=== PATIENT | male | born 1975 | race Caucasian/White ===

== ENCOUNTER 2024-10-19 10:59 | Inpatient (IN) | payer OTHER, SELFPAY ==
[2024-10-19] VITALS (30 sets, daily range): BP systolic 62–184; BP diastolic 41–126
--- NOTE | 2024-10-19 06:40 | EDRN ---
Pulse lost - CPR resumes - epi given
--- NOTE | 2024-10-19 06:48 | EDRN ---
STEMI alert called per Dr Taylor
--- NOTE | 2024-10-19 06:49 | EDRN ---
CPR continues - epi infusion increased per Dr Taylor, 1 amp epi administered.
--- NOTE | 2024-10-19 06:52 | EDRN ---
0652 - pulse returned. Fast rate 147. Dr Taylor going to speak with pt's .
[2024-10-19 06:55] LABS: Hematocrit 48.4 % (39.0-52.0); Hemoglobin 15.8 g/dL (13.0-18.0); Mean Corp Hgb Conc. 32.6 g/dL (33.0-37.0); Mean Corpuscular Hgb 30.3 pg (27.0-31.0); Mean Corpuscular Volume 92.7 fL (80.0-94.0); Platelet Count 147 10^3/uL (130-400); Red Blood Cell Count 5.22 10^6/uL (4.70-6.10); Red Cell Dist. Width 12.9 % (11.5-14.5); White Blood Cell Count 13.2 10^3/uL (4.8-10.8)
--- NOTE | 2024-10-19 06:56 | EDRN ---
family to bedside - waiting for cardiology
[2024-10-19 06:57] LABS: INR 1.09; PT 14.4 Sec (11.4-14.6)
[2024-10-19 06:58] LABS: APTT 37.2 Sec (23.4-35.0)
--- NOTE | 2024-10-19 06:59 | EDRN ---
Second amp sodium bicarb given per Dr Taylor
[2024-10-19] MEDS: HEPARIN 5000 UNITS IV (07:02)
[2024-10-19] MEDS: ASPIRIN 300 MG RECTAL (07:02)
--- NOTE | 2024-10-19 07:07 | EDRN ---
ETT placement confirmed by Dr Taylor on CXR
[2024-10-19 07:08] LABS: Glucose - Point of Care 547 mg/dl (70-99)
[2024-10-19 07:08] LABS: % Basophils 0.7 % (0-2); % Eosinophils 0.8 % (0-6); % Immature Granulocytes 7.8 % (0-0.5); % Lymphocytes 65.3 % (20.5-51.1); % Monocytes 4.5 % (1.7-9.3); % Neutrophils 20.9 % (42.2-75.2); Absolute Basophils 0.1 10^3/uL (0-0.2); Absolute Eosinophils 0.1 10^3/uL (0-0.7); Absolute Lymphocytes 8.7 10^3/uL (1.2-3.4); Absolute Monocytes 0.6 10^3/uL (0.1-0.6); Absolute Neutrophils 2.8 10^3/uL (1.4-6.5); Blood Urea Nitrogen 12 mg/dl (9-20); Calcium 8.2 mg/dl (8.4-10.2); Carbon Dioxide 18 mmol/L (22-30); Chloride 100 mmol/L (98-107); Glucose 604 mg/dl (70-99); Nucleated Red Blood Cells % 0.5 % (-); Potassium 3.1 mmol/L (3.5-5.1); Sodium 139 mmol/L (135-145); eGFR > 60.00
--- NOTE | 2024-10-19 07:09 | EDRN ---
Asked lab to run results stat and called pharmacy for sodium bicarb drip
[2024-10-19 07:13] LABS: Venous Blood Gas B.E. -12.8 mmol/L (-4 to +4); Venous Blood Gas HCO3 21.4 mmol/L (22-27); Venous Blood Gas O2 Sat % 78.4 %; Venous Blood Gas pO2 57 mmHg (30-50)
[2024-10-19 07:15] LABS: Venous Blood Gas pCO2 93 mmHg (35-48); Venous Blood Gas pH 6.97 (7.32-7.43)
--- NOTE | 2024-10-19 07:16 | EDRN ---
Report called to [place] in laboratory equipment cleaner, CT ready for pt
--- NOTE | 2024-10-19 07:18 | ED.GENMED ---
History of Present Illness
General
Chief Complaint: CODE
Source: family and ambulance crew
Exam Limitations: clinical condition
Time Seen by Provider: 10/19/24 07:17
History of Present Illness
History of Present Illness:
49-year-old male who presents in cardiac arrest. EMS reports that the patient reported chest pain last night to his but did not want to come the hospital as he thought it was gas. Seem to get better and went to bed. His then noticed
this morning that he had abnormal respirations and urinated on himself. She checked his pulse and started CPR and called 911. EMS gave 8 rounds of epinephrine and shocked him for V-fib 8 times. He was intubated in the field with a interosseous
line in the right tibia. Patient arrives on the Sean device receiving CPR
later arrives and admits that he would like to treat himself 'holistically' and has not taken medications for diabetes, hypertension or hyperlipidemia. She confirms that he complained of chest pain last night. He is not a smoker
Past History
Past History
ED Past Medical History: HTN and NIDDM
Phy Exam
Physical Exam
Physical Exam:
CONSTITUTIONAL patient arrives unresponsive
HEAD atraumatic, normocephalic.
EYES eyelids normal to inspection, pupils are about 5 mm and unreactive, Conjunctiva normal, Sclera normal.
NECK Trachea midline, no jugular venous distention.
RESP intubated, artificial respirations
BACK No obvious deformities
UPPER EXTREMITY Gross Range of motion normal, gross motor strength normal
LOWER EXTREMITY Gross range of motion normal, Gross motor strength normal
NEURO GCS 3 T
SKIN Skin warm, dry, and normal in color.
Course
Orders/Labs/Results
Orders:
Orders
10/19/24 06:35
EKG [Electrocardiogram (*1)] Stat
Reason for Study: Other
Other Reason for Exam: ROSC
EKG- Treatment ONCE
10/19/24 06:37
Chest X-ray Portable [CR Chest Portable - 1 View] Stat
Comment:
Reason For Exam: intubated ROSC
Reason Study Needs to be Portable: Unable to Transport
10/19/24 06:39
Basic Metabolic Panel Urgent
Complete Blood Count/With Diff Urgent
PTT Urgent
Prothrombin Time Urgent
Troponin I Urgent
10/19/24 06:54
EKG [Electrocardiogram (*1)] Stat
Reason for Study: Other
Other Reason for Exam: rhythm change
EKG- Treatment ONCE
10/19/24 06:58
Venous Blood Gas Stat
%Oxygen/Room Air: 100
10/19/24 07:00
Aspirin 300 mg RECTAL NOW STA
10/19/24 07:01
Aspirin 300 mg .ROUTE .STK-MED ONE
Heparin 5,000 units .ROUTE .STK-MED ONE
Heparin 5,000 units IV NOW STA
10/19/24 07:07
CT Head W/o Iv Contrast Stat
Comment:
Reason For Exam: code with ROSC
10/19/24 07:14
Comprehensive Metabolic Panel Urgent
10/19/24 07:19
Fentanyl Citrate/Pf [Sublimaze] 100 mcg .ROUTE .STK-MED ONE
Heparin 10,000 units .ROUTE .STK-MED ONE
Heparin 1000 Units/500 ml [Heparin] 1,000 units in 500 ml .ROUTE .STK-MED
Midazolam HCl [Versed] 2 mg .ROUTE .STK-MED ONE
Verapamil Injectable [Isoptin/Verapamil Injection] 5 mg .ROUTE .STK-MED ONE
10/19/24 07:20
Heparin Sodium,Porcine/Ns/Pf [Heparin 2000 Units/1000 ml] 2,000 unit in 1,000 ml .ROUTE .STK-MED
Nitroglycerin [Tridil] 1,500 mcg .ROUTE .STK-MED ONE
10/19/24 07:21
Amiodarone [Cordarone] 900 mg DEXTROSE 5% PVC-free BAG [D5W PVC-free BAG] 500 ml IV NOW
Initial Dose in mg/min:: 1
Duration of initial dose (hours):: 6
Subsequent dose in mg/min:: 0.5
Duration of subsequent dose (hours):: 18
Maximum dose in mg/min:: 1
Hold and notify provider if:: Heart rate < 60 BPM or SBP < 90 mmHg or MAP < 60 mmHg
EPINEPHrine 4 mg/250 mL NSS [Adrenalin] 4 mg in 250 ml IV NOW
Initial dose in mcg/min, then titrate:: 2
Titrate to keep:: MAP > 65 mmHg
Titrate by mcg/min:: 0.5 - 1 mcg/minute
Frequency of titrations (minutes):: 5
Maximum dose in mcg/min:: 10
Begin to taper infusion when:: Remained at goal for 4hrs
Taper by mcg/min:: 0.5 - 1 mcg/minute
Frequency of taper (minutes) if patient maintains goal:: 30
Taper to off?: Yes
If infusion off & no longer maintaining goal:: Contact Provider
Insulin Human Regular [Novolin R] 10 units IV NOW STA
10/19/24 07:45
Lidocaine HCl/Pf [Xylocaine-Mpf 1% Vial] 100 mg .ROUTE .STK-MED ONE
10/19/24 08:15
KCl 40 Meq/100 ml [KCl] 40 meq in 100 ml .ROUTE .STK-MED
10/19/24 08:39
Heparin 10,000 units .ROUTE .STK-MED ONE
10/19/24 09:09
ABG [Arterial Blood Gas] Stat
%Oxygen/Room Air: [id number] peep
Comment: abg post intubation
10/19/24 09:11
BMP [Basic Metabolic Panel] Urgent
10/19/24 09:21
Heparin 1000 Units/500 ml [Heparin] 1,000 units in 500 ml .ROUTE .STK-MED
10/19/24 09:31
Lactate Level [Lactic Acid] Urgent
10/19/24 09:38
Nitroglycerin [Tridil] 1,500 mcg .ROUTE .STK-MED ONE
10/19/24 09:44
Heparin 85658 Units/250 ml 25,000 units in 250 ml .ROUTE .STK-MED
10/19/24 09:47
EPTIFIBATIDE 75 mg/100 mL [Integrilin] 75,000 mcg in 100 ml .ROUTE .STK-MED
Eptifibatide [Integrilin] 10 ml .ROUTE .STK-MED
10/19/24 09:52
Eptifibatide [Integrilin] 10 ml .ROUTE .STK-MED
10/19/24 09:53
Midazolam HCl [Versed] 2 mg .ROUTE .STK-MED ONE
10/19/24 10:05
Furosemide [Lasix] 40 mg .ROUTE .STK-MED ONE
Ticagrelor [Brilinta] 180 mg .ROUTE .STK-MED ONE
10/19/24 10:35
Admit/Transfer Patient As Directed
Co-Sign Provider:
Level of Care: Inpatient admission
Assign to:: ICU
Physician / Group: Carolyn/hospitalist
Diagnosis: STEMI/cardiac arrest
Reason for Hospitalization: STEMI/cardiac arrest
Expected length of stay greater than two midnights?: Yes
ELOS- Estimated Length of Stay in days: 7
I certify the patient meets the requirements for IP care: Yes
Code Status As Directed
Resuscitation Status: Full Code
PRN Pain Medication Management As Directed
May give lesser potent ordered pain med per pt: Yes
preference::
Protocol:: Medication orders for pain may be administered in a
manner that supports deferring to patient preference
when the pt is:
- Requesting an ordered lesser potent pain medication.
Least to most potent pain medications are defined
as: acetaminophen < NSAID < tramadol < opioids
(morphine, oxycodone, hydromorphone).
- Requesting a lesser dose of the same medication IF
ORDERED.
- Requesting a less intrusive route of administration
if both routes are prescribed by the provider (PO <
IV).
10/19/24 10:48
Bisacodyl [Dulcolax] 10 mg RECTAL [id number] PRN
Docusate W/Senna [Senokot-S] 1 tablet PO BIDPRN PRN
Polyethylene Glycol Powder [Miralax] 17 grams PO DAILYPRN PRN
10/19/24 10:48
CARDIOLOGY CONSULT Routine
Consulting Provider: Erin Chou
Was physician already notified: Yes
Registered Nurse Surgical Services Consult Routine
Consulting Provider: Seun Ch
Was physician already notified: Yes
Activity As Directed
Activity Level: As Tolerated
Vital Signs As Directed
Frequency: Per unit guidelines
DX Deep Vein Thrombosis Video Routine
10/19/24 10:57
NEUROLOGY CONSULT Routine
Consulting Provider: Devyn Kiser
Was physician already notified: Yes
10/19/24 10:58
Admit Patient As Directed
Co-Sign Provider:
Level of Care: Inpatient admission
Assign to:: CVICU
Physician / Group: Carolyn/hospitalist
Diagnosis: cardiac arrest
Reason for Hospitalization: cardiac arrest
Expected length of stay greater than two midnights?: Yes
ELOS- Estimated Length of Stay in days: 7
I certify the patient meets the requirements for IP care: Yes
PRN Pain Medication Management As Directed
May give lesser potent ordered pain med per pt: Yes
preference::
Protocol:: Medication orders for pain may be administered in a
manner that supports deferring to patient preference
when the pt is:
- Requesting an ordered lesser potent pain medication.
Least to most potent pain medications are defined
as: acetaminophen < NSAID < tramadol < opioids
(morphine, oxycodone, hydromorphone).
- Requesting a lesser dose of the same medication IF
ORDERED.
- Requesting a less intrusive route of administration
if both routes are prescribed by the provider (PO <
IV).
10/19/24 11:00
Pantoprazole [Protonix IV] 40 mg IV DAILY
10/19/24 20:00
Heparin 5,000 units SC Q12
10/20/24 06:00
Complete Blood Count/With Diff IN AM
Comprehensive Metabolic Panel IN AM
Lactic Acid IN AM
Magnesium IN AM
10/21/24 06:00
Complete Blood Count/With Diff IN AM
Comprehensive Metabolic Panel IN AM
Lactic Acid IN AM
Magnesium IN AM
10/22/24 06:00
Complete Blood Count/With Diff IN AM
Comprehensive Metabolic Panel IN AM
Lactic Acid IN AM
Magnesium IN AM
10/23/24 06:00
Complete Blood Count/With Diff IN AM
Comprehensive Metabolic Panel IN AM
Lactic Acid IN AM
Magnesium IN AM
10/24/24 06:00
Complete Blood Count/With Diff IN AM
Comprehensive Metabolic Panel IN AM
Lactic Acid IN AM
Magnesium IN AM
10/25/24 06:00
Complete Blood Count/With Diff IN AM
Comprehensive Metabolic Panel IN AM
Magnesium IN AM
Abnormal Lab Results
10/19/24 10/19/24 10/19/24
06:39 06:58 07:02
WBC 13.2 H 10^3/uL
(4.8-10.8)
MCHC 32.6 L g/dL
(33.0-37.0)
MPV 11.0 H fL
(7.4-10.4)
Abs Immat Gran (auto) 1.0 H 10^3/uL
(0-0.05)
Absolute Lymphs (auto) 8.7 H 10^3/uL
(1.2-3.4)
Immature Gran % 7.8 H %
(0-0.5)
Neutrophils % 20.9 L %
(42.2-75.2)
Lymphocytes % 65.3 H %
(20.5-51.1)
APTT 37.2 H Sec
(23.4-35.0)
pH
pCO2
pO2
HCO3
ABG O2 Sat (Measured)
VBG pH 6.97 L*
(7.32-7.43)
VBG pCO2 93 H* mmHg
(35-48)
VBG pO2 57 H mmHg
(30-50)
VBG HCO3 21.4 L mmol/L
(22-27)
Potassium 3.1 L mmol/L
(3.5-5.1)
Carbon Dioxide 18 L mmol/L
(22-30)
Creatinine
Glucose 604 H* mg/dl
(70-99)
Lactic Acid
Calcium 8.2 L mg/dl
(8.4-10.2)
AST
ALT
Alkaline Phosphatase
Troponin I 1.520 H* ng/ml
Total Protein
POC Glucose 547 H* mg/dl
(70-99)
POC ACT Low Range
10/19/24 10/19/24 10/19/24
07:14 08:13 08:14
WBC
MCHC
MPV
Abs Immat Gran (auto)
Absolute Lymphs (auto)
Immature Gran %
Neutrophils %
Lymphocytes %
APTT
pH
pCO2
pO2
HCO3
ABG O2 Sat (Measured)
VBG pH
VBG pCO2
VBG pO2
VBG HCO3
Potassium
Carbon Dioxide 19 L mmol/L
(22-30)
Creatinine
Glucose 579 H* mg/dl
(70-99)
Lactic Acid
Calcium 8.3 L mg/dl
(8.4-10.2)
AST 771 H* U/L
(17-59)
ALT 684 H* U/L
(0-50)
Alkaline Phosphatase 190 H U/L
(38-126)
Troponin I
Total Protein 5.9 L g/dl
(6.3-8.2)
POC Glucose > 600 H* mg/dl
(70-99)
POC ACT Low Range 165 H Seconds
(116-155)
10/19/24 10/19/24 10/19/24
08:19 08:34 08:52
WBC
MCHC
MPV
Abs Immat Gran (auto)
Absolute Lymphs (auto)
Immature Gran %
Neutrophils %
Lymphocytes %
APTT
pH
pCO2
pO2
HCO3
ABG O2 Sat (Measured)
VBG pH
VBG pCO2
VBG pO2
VBG HCO3
Potassium
Carbon Dioxide
Creatinine
Glucose
Lactic Acid
Calcium
AST
ALT
Alkaline Phosphatase
Troponin I
Total Protein
POC Glucose
POC ACT Low Range 211 H Seconds 250 H Seconds 279 H Seconds
(116-155) (116-155) (116-155)
10/19/24 10/19/24 10/19/24
08:59 09:09 09:10
WBC
MCHC
MPV
Abs Immat Gran (auto)
Absolute Lymphs (auto)
Immature Gran %
Neutrophils %
Lymphocytes %
APTT
pH 7.21 L
(7.35-7.45)
pCO2 49 H mmHg
(35-48)
pO2 259 H mmHg
(83-108)
HCO3 19.6 L mmol/L
(21-28)
ABG O2 Sat (Measured) 99.8 H %
(94-98)
VBG pH
VBG pCO2
VBG pO2
VBG HCO3
Potassium
Carbon Dioxide
Creatinine
Glucose
Lactic Acid
Calcium
AST
ALT
Alkaline Phosphatase
Troponin I
Total Protein
POC Glucose > 600 H* mg/dl
(70-99)
POC ACT Low Range 277 H Seconds
(116-155)
10/19/24 10/19/24 10/19/24
09:11 09:29 09:31
WBC
MCHC
MPV
Abs Immat Gran (auto)
Absolute Lymphs (auto)
Immature Gran %
Neutrophils %
Lymphocytes %
APTT
pH
pCO2
pO2
HCO3
ABG O2 Sat (Measured)
VBG pH
VBG pCO2
VBG pO2
VBG HCO3
Potassium
Carbon Dioxide
Creatinine 1.4 H mg/dL
(0.7-1.3)
Glucose 634 H* mg/dl
(70-99)
Lactic Acid 8.3 H* mmol/L
(0.7-2.0)
Calcium 7.1 L mg/dl
(8.4-10.2)
AST
ALT
Alkaline Phosphatase
Troponin I
Total Protein
POC Glucose
POC ACT Low Range 279 H Seconds
(116-155)
10/19/24 10/19/24 10/19/24
09:41 09:59 10:47
WBC
MCHC
MPV
Abs Immat Gran (auto)
Absolute Lymphs (auto)
Immature Gran %
Neutrophils %
Lymphocytes %
APTT
pH
pCO2
pO2
HCO3
ABG O2 Sat (Measured)
VBG pH
VBG pCO2
VBG pO2
VBG HCO3
Potassium
Carbon Dioxide
Creatinine
Glucose
Lactic Acid
Calcium
AST
ALT
Alkaline Phosphatase
Troponin I
Total Protein
POC Glucose > 600 H* mg/dl
(70-99)
POC ACT Low Range 326 H Seconds 282 H Seconds
(116-155) (116-155)
10/19/24 06:39
10/19/24 09:11
Vital Signs
Initial and Last Documented VS:
Initial Vital Signs
Pulse BP
147 178/126
10/19/24 06:36 10/19/24 06:36
Last Documented Vital Signs
Temp Pulse Resp BP Pulse Ox
100.3 F 133 28 108/81 100
10/19/24 15:03 10/19/24 15:00 10/19/24 15:00 10/19/24 14:00 10/19/24 15:00
MDM/Problems Addressed
MDM/Problems Addressed:
Cardiopulmonary arrest, STEMI, acute severe hyperglycemia, V-fib arrest, metabolic and respiratory acidosis
*Radiology
Radiology exam reviewed: preliminary read by ED provider (ET tube intact)
*Pulse Oximetry
Patient hypoxic: no
*EKG
Interpreted by ED Provider?: Yes
Interpretation: abnormal
Ischemia: ST elevation
*Urologic Nurse Interpretation
Rate: tachycardiac
Interpretation: abnormal
Rhythm: sinus
*Critical Care Note
Total Time (30-74mins, 75-104mins- exclusive of procedures): 60 minutes
Data Reviewed
Source: family and ambulance crew
Prescriptions/Medications Considered But Not Given:
Consider antibiotics with taken emergently to cardiac catheterization lab.
Patient Management
Discussion with other providers: Hospitalist, Dean (Case discussed with interventional cardiology) and Other (Case discussed with public health epidemiologist)
Escalation/DeEscalation of care consider admission/obs:
49-year-old male who presents in cardiac arrest. Fortune a downtime of probably close to 50 minutes. Not responsive to verbal or painful stimuli. ST elevation noted on EKG. On initial arrival regained a pulse. He then lost a pulse shortly after
that x 2 separate events but responded well to 1 dose of push dose epi. Then maintained on IV epinephrine drip as well as amiodarone drip. May be a candidate for cooling. Family brought in during resuscitation and aware of his poor prognosis.
ED Attending Note
-
Portions of this chart may have been created with voice recognition software.� Occasional wrong word or��sound alike� substitutions may have occurred due to the inherent limitations of voice recognition software.
Discharge Plan
Departure
Patient Disposition: Admit
Date of Disposition: 10/19/24
Time of Disposition: 07:18
Admit to: ICU
Presentation/result/management discussed w/ accepting MD/DO: Hospitalist
Discharge Problem:
Cardiac arrest, ST elevation (STEMI) myocardial infarction, VDRF
Interventions
Interventions:
*Risk Screen - Suicide Last Done: 10/19/24 06:44
*General Assessment Last Done: 10/19/24 06:44
*Neglect/Abuse Screening Last Done: 10/19/24 06:44
*ED COVID-19 Vaccine History Last Done: 10/19/24 06:44
*Nursing Disposition Last Done: 10/19/24 07:23
Discharge Date and Time
Discharge Date/Time: 10/19/24 07:26
--- NOTE | 2024-10-19 07:21 | EDRN ---
#16 OG inserted by ABIMBOLA Ricardo
--- NOTE | 2024-10-19 07:53 | HPS.HSE ---
Addendum entered and electronically signed by Nathaly Leon MD 10/19/24 14:13:
d/w supervisor farm equipment maintenance Dr Chou who wishes code status to be changed back to full code for now.
Cattle Driver Dr Chou spoke with and explained.
Code status changed back to full code.
Addendum entered and electronically signed by Nathaly Leon MD 10/19/24 12:28:
cell phone number [phone]
Original Note:
Family Physician
-
Family Physician: NOT KNOW UNKNOWN - PT DOES
Chief Complaint
-
cardiac arrest
History of Present Illness
49 yo M, PMH HTN, HLD, DM, not on medication due to non-compliance, who p/w cardiac arrest s/p ROSC. He apparently was complaining of chest pain the night before but went to bed at 11 pm. He was found unresponsive in the morning by his at 5:30
am. According to his , she called EMS immediately.
Per ED, he was noted to be in in [place] and VF by airplane technician.
Upon arrival to the ER, he went straight to the Plant Culture Manager for suspected STEMI.
Medical History
Past Medical History
Past Medical History: Reports HTN, Hypercholesterolemia and NIDDM
Past Surgical History: Reports Appendectomy
Social History
Tobacco: Non-smoker
Alcohol: None
Personal:
Living: With Family
Family History
Family History: Not pertinent
Allergies / Home Medications
Allergies reflects when Allergies were last updated in [employer].
Home Medications with original date entered in [employer]
Allergy/Medication List:
Allergies
Allergy/AdvReac Type Severity Reaction Status Date / Time
No Known Allergies Allergy Unverified 10/19/24 06:44
Home Medications
No Meds [No Current Medications] 10/19/24
Review of Systems
-
Unable to obtain full review of systems at this time due to: Acuity
Physical Exam
Vital Signs
Vital Signs
Pulse Resp BP Pulse Ox
122 10 167/107 100
10/19/24 07:15 10/19/24 06:38 10/19/24 07:15 10/19/24 07:15
Physical Exam
General: Well Developed, Well Nourished, Respiratory Distress and Obese
HEENT: NormoCephalic, Moist mucous membranes, Atraumatic and Oxygen (intubated)
Respiratory: Clear and Non Labored Respirations; No Accessory Resp Muscle Use
Cardiac: S1/S2 and Regular Rhythm; No Murmur or Rub
GI: Soft, Non Tender, Non Distended and Normal Bowel Sounds; No Organomegaly
Rectal: Deferred by Provider
Musculoskeletal: No Clubbing, No Cyanosis and No Edema
Skin: No Rash
Neuro: No Awake
Laboratory Results
-
10/19/24 06:39
Laboratory Results
PT 14.4 Sec (11.4-14.6) 10/19/24 06:39
INR 1.09 10/19/24 06:39
APTT 37.2 Sec (23.4-35.0) H 10/19/24 06:39
Total Bilirubin Cancelled 10/19/24 06:39
AST Cancelled 10/19/24 06:39
ALT Cancelled 10/19/24 06:39
Alkaline Phosphatase Cancelled 10/19/24 06:39
Troponin I 1.520 ng/ml H* 10/19/24 06:39
Data Reviewed
-
CT Scan: Report Reviewed by me and Discussed with Family
Lab Data: Labs Reviewed by me and Discussed with Family
Impression/Plan
-
49 yo M, PMH HTN, HLD, DM, not on medication due to non-compliance, who p/w cardiac arrest s/p ROSC. He apparently was complaining of chest pain the night before but went to bed at 11 pm. He was found unresponsive in the morning by his at 5:30
am. According to his , she called EMS immediately.
Per ED, he was noted to be in in [place] and VF by airplane technician.
Upon arrival to the ER, he went straight to the Plant Culture Manager for suspected STEMI.
A/P:
# Cardiac arrest/STEMI
# Ventricular arrhythmia with VT and VF
# Cardiogenic shock
per card, cath showed 100% proximal RCA occlusion, s/p 3 stent placement. Follow-up formal cath report
Continue aspirin/Brilinta per card.
Cont Toprol and amiodarone per card
IV Lasix per card
Levophed started by Elementary School Teacher'S Aide, cont for BP support in setting of shock
Check follow-up echo
Cardiology on board
Elementary School Teacher'S Aide consult
# Acute hypoxic respiratory failure
Intubated for airway protection
Vent and sedation per Elementary School Teacher'S Aide
# Likely anoxic brain injury
CT head noted mild/early diffuse cerebral edema.
Neuro consulted, plan for EEG in the morning
# Metabolic acidosis
# Lactic acidosis
Suspect related to cardiac arrest
Follow lactic acid level
# End organ damage and likely leading to failure
# Developing RUBÉN
# Transaminitis suspect hypoxic liver injury
Trend SCr and LFT
consider renal and GI CS
# SIRS suspect 2/2 cardiac arrest
will check blood cultures x2 and cover with cefepime for now
# DM
Insulin drip
Accu-Chek
DVT ppx: HSQ
Code: changed to DNR DNI after extensive discussion with family
d/w Neuro, Kelechi, Elementary School Teacher'S Aide
d/w RN
Extensive discussion with and daughters in person. Explained to them the current critical situation. Also informed that the patient may never fully recover neurologically. and daughters verbalized understanding and are in agreement to
transition pt's code status to DNR DNI.
CC time 50 min
--- NOTE | 2024-10-19 08:09 | EDRN ---
Pt transported to field laborer after completing the head ct. Gtube was removed due to pt biting the tube and an NG tube was reinserted with positive stomach content showing. Hand off report given to nurses in the field laborer as well as the insulin drip
that was not started yet. Yellow copy of the ACS was returned to ED.
[2024-10-19 08:17] LABS: ACT-LR - POC 165 Seconds (116-155)
[2024-10-19 08:24] LABS: ACT-LR - POC 211 Seconds (116-155)
[2024-10-19 08:31] LABS: ALT (SGPT) 684 U/L (0-50); AST (SGOT) 771 U/L (17-59); Albumin 3.5 g/dl (3.5-5.0); Alkaline Phosphatase 190 U/L (38-126); Blood Urea Nitrogen 13 mg/dl (9-20); Calcium 8.3 mg/dl (8.4-10.2); Carbon Dioxide 19 mmol/L (22-30); Chloride 101 mmol/L (98-107); Glucose 579 mg/dl (70-99); Potassium 3.9 mmol/L (3.5-5.1); Sodium 139 mmol/L (135-145); Total Bilirubin 0.9 mg/dl (0.2-1.3); Total Protein 5.9 g/dl (6.3-8.2); eGFR > 60.00
[2024-10-19 08:40] LABS: ACT-LR - POC 250 Seconds (116-155)
[2024-10-19 08:58] LABS: ACT-LR - POC 279 Seconds (116-155)
[2024-10-19 09:11] LABS: Glucose - Point of Care > 600 mg/dl (70-99)
[2024-10-19 09:11] LABS: Glucose - Point of Care > 600 mg/dl (70-99)
[2024-10-19 09:15] LABS: B.E. -8.5 mmol/L; HCO3 19.6 mmol/L (21-28); O2 Saturation % 99.8 % (94-98); PCO2 49 mmHg (35-48); PO2 259 mmHg (83-108); pH 7.21 (7.35-7.45)
[2024-10-19 09:19] LABS: ACT-LR - POC 277 Seconds (116-155)
[2024-10-19 09:36] LABS: ACT-LR - POC 279 Seconds (116-155)
[2024-10-19 09:47] LABS: ACT-LR - POC 326 Seconds (116-155)
[2024-10-19 10:06] LABS: ACT-LR - POC 282 Seconds (116-155)
[2024-10-19 10:07] LABS: Lactic Acid 8.3 mmol/L (0.7-2.0)
[2024-10-19 10:26] LABS: Blood Urea Nitrogen 17 mg/dl (9-20); Calcium 7.1 mg/dl (8.4-10.2); Carbon Dioxide 23 mmol/L (22-30); Chloride 103 mmol/L (98-107); Glucose 634 mg/dl (70-99); Potassium 4.8 mmol/L (3.5-5.1); Sodium 138 mmol/L (135-145); eGFR > 60.00
--- NOTE | 2024-10-19 10:36 | ITS.CL.CATH ---
Section Hand Helper - Catheterization
Cardiac Catheterization
Procedure Report:
LEFT AND RIGHT HEART CATHETERIZATION
Date of Procedure: October 19, 2024
Referring: [place] emergency department
PROCEDURES:
1. Left heart catheterization, coronary angiogram.
2. Ultrasound-guided access.
3. Right heart catheterization.
4. Mechanical aspiration thrombectomy with penumbra CATRX
5. Successful percutaneous coronary artery intervention of 100% thrombotic proximal RCA occlusion (ZEN 0 flow) post thrombectomy with 3 overlapping 2.75 x 26 mm, and 3.0 x 8 mm Medtronic Eudora drug-eluting stents and a 3.0 x 15 mm Xience jerri point
drug-eluting stent, postdilated using IVUS guidance with a 3.0 x 20 mm NC balloon at 18 ayan distally and a 3.25 x 15 mm NC balloon at 20 ayan proximally with an excellent angiographic and IVUS based result.
6. Intravascular ultrasound (IVUS)
7. Placement of a radial arterial line.
INDICATION: Sunil is a 49-year-old morbidly obese gentleman with past medical history of hypertension, hyperlipidemia, type 2 diabetes mellitus, obstructive sleep apnea, not on CPAP, not on any medications given patient does not believe in
medications who is brought in by EMS after being found to have VT VF cardiac arrest. Per who obtains most of the history given patient is intubated, patient reported short-lived episode of chest discomfort last week however they did not make
anything of it given it was self-limiting. He also had another episode of substernal chest discomfort last night which lasted about 5 to 10 minutes. asked patient if they should go out and get some aspirin or go to the emergency room for an
evaluation however patient opted to not take any medications or present to the ED but instead drank water with some cell and it which resolved his symptoms supposedly and went to sleep. Around 5:20 AM noted that patient's snoring was lower
than his baseline and he was gargling which was different than ever before. She turned the lights on and noted that patient had been incontinent of urine. In the setting she called EMS and she was directed to start CPR at home. Per ED, EMS
reached their 7 minutes after they got the phone call and patient was found to be in VF needing ACLS, recurrent shocks, total of 8. In the emergency room he continued to have bradycardic events needing ongoing epinephrine and CPR with no further
shocks. With transient ROSC initially his EKG showed ST elevations in the inferior leads however patient went back into VF needing another round of ACLS before achieving ROSC. In the emergency room he was on 20 mcg of epinephrine drip, intubated
sedated, had received full dose aspirin rectally, not on any sedation. He was also started on amnio drip. Patient was seen and evaluated in the emergency room with extensive discussion with the family. Initial head CT on the way to the heart
catheterization lab showed no acute bleed however did show signs of possible early anoxic brain injury. Extensive discussion was had with the patient's and daughter given they had mentioned that patient 'does not believe in medicines and may
not want stents', and we discussed considering options of medical therapy only with increased risk for MACE events and mortality versus moving forward with invasive heart catheterization and specifically noted that patient 'would not have
wanted to ' and therefore they would like us to do everything and patient's assured us that patient would take necessary medications if he survives this major event. Given significant downtime, we also discussed at the time of consent that
overall prognosis is very guarded likely from his neurologic status regarding of invasive vs non-invasive approach.
ACCESS:
1. Right radial artery, 6 [place] sheath, under ultrasound guidance.
2. Right common femoral vein, 6 [place] sheath under ultrasound guidance using a micropuncture kit.
Ultrasound was utilized for vascular access. The radial artery and right common femoral vein was visualized under ultrasound, and the vessel was patent and artery was pulsatile. Images for both were stored permanently in the patient's medical
record. Under direct ultrasound guidance, a 6 [place] sheath was inserted into the artery and vein using a micropuncture kit through a modified Seldinger technique.
HEMODYNAMICS : (mmHg)
RA (m) : 23
RV (s/d,m) : 48/22, 27
PA (s/d, m) : 47/35, 40
PCWP (m) : 29
PA saturation: 66.1% on 60% FiO2 via ventilator
AO saturation: 95.5% on 60% FiO2 via ventilator
RA saturation: 63.4% on 60% FiO2 via ventilator
Cardiac Output : 4.8 L/min
Cardiac Index : 2.28 L/min/m-2
Systemic vascular resistance: 1102 dsc^(-5)
Pulmonary vascular resistance: 2.88 nair unit
AO (s/d) : 119/80
LV (s/d) : 118/60
LVEDP : 23
CORONARY FINDINGS
DOMINANCE: Right
LEFT MAIN: The left main artery is a medium to large caliber vessel which gives rise to the left anterior descending artery and the left circumflex artery. There is minimal luminal irregularities.
LEFT ANTERIOR DESCENDING: The left anterior descending artery is a medium caliber vessel which gives rise to multiple small diagonal branches as it courses to the anterior interventricular groove towards the apex. There is mild to moderate diffuse
atherosclerotic plaque in the mid LAD.
CIRCUMFLEX: The left circumflex artery is a medium caliber vessel which gives rise to 2 obtuse marginal branches. There is a chronic total occlusion of mid left circumflex with left to left collaterals filling a likely left posterolateral branch
and the terminal left circumflex. There is a very small caliber OM1, cannot definitively rule out a INFORMATION COORDINATOR with left to left collaterals there. OM 2 is a medium caliber vessel with minimal luminal irregularities.
RIGHT CORONARY ARTERY: The right coronary artery is a medium caliber, dominant vessel with 100% proximal thrombotic occlusion which is the culprit of presenting ST elevation LA.
CORONARY INTERVENTION: The right coronary artery was selectively engaged using a 6 [place] JR4 guide catheter. A 190 cm 0.014 run-through wire was advanced with some difficulty into the distal vessel. Additional heparin was given to maintain a
therapeutic ACT throughout the case. The lesion was initially predilated using a 2.5 x 15 mm semicompliant balloon at 14 ayan with good expansion however ZEN 0 flow persisted. Multiple inflations were performed with ZEN I flow noted down the
distal vessel which initially appeared to be diffusely diseased. Given significant thrombus burden we decided to perform mechanical aspiration thrombectomy with penumbra CAT Rx catheter and performed multiple passes. Post thrombectomy, we noted
ZEN II flow. The lesion was further predilated using a 2.75 x 20 mm semicompliant balloon at 14 ayan with good expansion. The lesion was then stented using a 2.75 x 26 mm Medtronic Semaj drug-eluting stent. At this point we performed IVUS using a
[employer] eye catheter and decided to postdilate the stent with a 3.0 x 20 mm NC balloon at 18 ayan distally and 20 ayan proximally. We noted some haziness at the proximal edge of the stent and decided to cover this with another stent given
concern for possible thrombus displacement. We overlapped a 3.0 x 8 mm Medtronic Eudora drug-eluting stent at the proximal edge and postdilated initially with a 3.0 x 20 mm NC balloon at 20 ayan proximally. At this point in the middle of the original
stent we noted some restenosis and haziness. We brought back our IVUS catheter with the stents appearing well apposed and well-expanded in this area with no obvious thrombus noted. We further postdilated this area using a 3.25 x 15 mm NC balloon
at 18 ayan and repeated the same NC balloon at the proximal edge at 20 ayan with good expansion. We brought back our IVUS catheter again given concern for ongoing haziness in this area. On intravascular ultrasound there was no obvious but possible
plaque protrusion/thrombus. We decided to take an orthogonal shot in an BEGUM view which showed a 80% restenosis in the middle of the initial stent placed. Given concern that there was possible plaque protrusion through the stent struts, we decided
to cover this with a second 3.0 x 15 mm Xience jerri point drug-eluting stent which was now postdilated with a 3.25 x 15 mm NC balloon at 20 ayan in the mid portion and proximally with an excellent angiographic and IVUS based result. There is no
evidence of proximal or distal stent edge dissections. 180 mg of Brilinta was given to the patient through the OG tube once we confirmed placement under fluoroscopy. No acute complications. Given persistent hypertension from the beginning of the
case, his epinephrine drip that he came up on from the emergency room was completely weaned off.
SEDATION: 136 minutes of procedural sedation was utilized. An independent front office medical assistant was present to assist with and help manage the patient's level of consciousness and physiologic status.
RADIATION SUMMARY: Fluoro Time (min): 18 Dose (mGy): 1254.6 DAP (Gy.cm2) : 101.2
Closure Device:
1. Vascular band over right radial artery with 11 cc of air.
2. Right common femoral vein was sutured in place for access purposes
CONCLUSIONS
1. Successful percutaneous coronary artery intervention of 100% thrombotic proximal RCA occlusion (ZEN 0 flow) post thrombectomy with 3 overlapping 2.75 x 26 mm, and 3.0 x 8 mm Medtronic Eudora drug-eluting stents and a 3.0 x 15 mm Xience jerri point
drug-eluting stent, postdilated using IVUS guidance with a 3.0 x 20 mm NC balloon at 18 ayan distally and a 3.25 x 15 mm NC balloon at 20 ayan proximally with an excellent angiographic and IVUS based result.
2. Significantly elevated right and left-sided filling pressures with normal cardiac output.
RECOMMENDATIONS
1. Uninterrupted dual antiplatelet therapy with daily baby aspirin and Brilinta 90 mg twice daily, high intensity statin and beta-luis alberto as tolerated.
2. Wean radial band per protocol. Arterial line sutured in place. Venous access catheter in the groin is also sutured in place.
3. Full echocardiogram to assess biventricular function and rule out any significant valvular abnormalities.
4. Aggressive management of cardiovascular risk factors.
5. Eventual referral for outpatient cardiac rehab if patient survives this event with a meaningful neurologic recovery.
Erin Cohu MD, [facility], [facility]
--- NOTE | 2024-10-19 11:00 | CON.INTV ---
Consultation
Consultation Request
Date/Time Consultation Requested: 10/19/2024 - 1047
Date/Time Consultation Performed: 10/19/2024 - 1049
Requesting Provider: Dr. Leon
Performing Provider: Dr. Freeman
Reason for Consultation: Cardiac Arrest
Medical History
-
Chief Complaint: Found unresponsive
History of Present Illness:
49-year-old male with a past medical history of hypertension, hypercholesterolemia and DM type II who presented with unresponsiveness. Per the , patient went to bed last night and prior to that he had chest discomfort. The asked if he
wanted to go to the ER then but he refused. He drank water with salt in it and then he felt better and then went to bed. This morning at 5:30 AM she found him unresponsive in bed. EMS called. Per the imaging assistant he was in VT and V-fib. Cardiology
consulted. Initial EKG showed ST depressions in the inferior leads with lateral ST depressions. He was found to have a 100% occluded proximal RCA and 3 stents were placed. Patient remains intubated, was transferred to CVICU and or rn
services consulted for additional management/recommendations.
When I saw the patient he was unresponsive, intubated on AC/CMV at 24/550/60%/5 with PIP 39 cm water, VTe 511 cc and breathing at 35 breaths/min. Of note, CT head obtained today shows diffuse cerebral edema. Per neurology, this is evident of
hypoxic�anoxic brain injury and chances of a meaningful recovery are low. Discussion held with the patient's , Faye, and 2 daughters, Marina and Elvira. Discussion of his CT head results were explained to them in layman's terms and they
would like him to be DNR/DNI but continue full medical management otherwise. All questions were answered and emotional support was provided.
PMHx: Hypertension, hypercholesterolemia, DM type II
PSHx: Appendectomy
Past Medical History
Past Medical History: Other (Above as per HPI)
Past Surgical History: Other (Above as per HPI)
Social History
Tobacco: Non-smoker
Alcohol: None
Drug: None
Personal:
Living: With Family
Family History
Family History: Unable to Obtain
Allergies / Home Medications
Allergies
Allergy/AdvReac Type Severity Reaction Status Date / Time
No Known Allergies Allergy Unverified 10/19/24 06:44
Home Medications
�Medication �Instructions �Recorded �Confirmed �Last Taken �Type
No Meds [No Current Medications] 10/19/24 10/19/24 Unknown History
Review of Systems
-
Unable to Obtain full review of systems at this time due to: Acuity and Patient Intubation
Vitals / Labs / Diagnostic Testing
Vital Signs
Temp Pulse Resp BP Pulse Ox
101.7 F H 140 28 184/116 100
10/19/24 11:26 10/19/24 12:15 10/19/24 12:15 10/19/24 07:45 10/19/24 12:15
Lab Data
10/19/24 06:39
10/19/24 12:03
Laboratory Results
10/19/24 10/19/24
06:39 09:09
PT 14.4
INR 1.09
APTT 37.2 H
pH 7.21 L
pCO2 49 H
pO2 259 H
HCO3 19.6 L
O2 Delivery Level
Diagnostic Testing:
Physical Exam
-
HEENT: Normocephalic, Anicteric and Other (ETT in place)
Cardiovascular: S1/S2, Peripheral Edema (+1 LE edema b/l) and Other (Tachycardic)
Respiratory: Wheeze (negative), Rales (Bilateral), Rhonchi (Bilateral), Accessory Resp Muscle Use (negative) and Other (Mechanical breath sounds heard bilaterally)
GI: Soft, Non Distended, Non Tender and Normal Bowel Sounds
Neurology: Tremors (Occasionally seen in the lower extremities bilaterally) and Other (Unresponsive; pupils are +3 bilaterally and minimally reactive; absent corneal reflexes and absent gag reflex; no withdrawal of any extremity to noxious stimuli)
Skin: Warm and Dry
General: Respiratory Distress (negative), Comfortable, Chills (negative) and Sweats (negative)
Assessment
-
Assessment: 49-year-old male with a past medical history of hypertension, hypercholesterolemia and DM type II who presented with unresponsiveness. Per the , patient went to bed last night and prior to that he had chest discomfort. The
asked if he wanted to go to the ER then but he refused. He drank water with salt in it and then he felt better and then went to bed. This morning at 5:30 AM she found him unresponsive in bed. EMS called. Per the imaging assistant he was in VT and V-fib.
Cardiology consulted. Initial EKG showed ST depressions in the inferior leads with lateral ST depressions. He was found to have a 100% occluded proximal RCA and 3 stents were placed. Patient remains intubated, was transferred to CVICU and
or rn services consulted for additional management/recommendations.
Chronic conditions QUALITY ASSISTANT: Hypertension, hypercholesterolemia, DM type II
Impression:
#Btb-eb-nekosdvy cardiac arrest with VF/VT due to coronary thrombosis
#Circulatory shock likely due to vasoplegia in the setting of metabolic + respiratory acidosis in the setting of RUBÉN + lactic acidosis
#Ventilator dependent respiratory failure
#Inferior wall STEMI s/p stenting x 3 to proximal RCA
#Acute decompensated heart failure due to STEMI as above
#Suspected aspiration pneumonia with CXR showing left perihilar consolidation
#Diffuse cerebral edema due to anoxic�hypoxic encephalopathy
#Leukocytosis
#Thrombocytopenia (mild)
#Acute respiratory and metabolic acidosis
#RUBÉN
#Lactic acidosis
#Hyperglycemia
#Shock liver
#Elevated troponins
Plan:
- Start targeted temperature management
- Given that he is now hypotensive after arriving to the CVICU, unable to bring temperature down to 32-34 �C and instead would keep at 35-36 �C and avoid fever at all costs
- Give Tylenol ATC although need to limit it to <2 g/day given his shock liver
- Try to limit sedation if possible in order to help prognosticate over the next 24-72 hours
- Neurology consulted --> given the patient has shaking movements concerning for seizures, defer starting antiepileptics to neurology
- EEG pending
- Patient ready has a right radial A-line; continue with central venous access via Cordis placed during Investor Relations Manager today
- Continue DAPT given stents x3 to proximal RCA lesion
- Would hold high intensity statin for now given his significant transaminitis
- He is also on amiodarone however this may need to be held in the setting of his transaminitis with shock liver
- Cardiology on board and recommendations appreciated
- Once patient arrived to the CVICU, he became very hypotensive with SBP dropping into the 30s and saturations dropping into the 70s
- FiO2 raised to 100% and PEEP raised to 10, and he was given a push dose of epinephrine, bicarb and started on Levophed --> this helped his BP tremendously
- Continue with vasopressors with goal MAP >65
- Use double concentrated pressors given he is volume overloaded as per [facility] with high filling pressures as per client resource specialist, Dr. Chou
- If pressor requirements persist then start vasopressin and stress dose steroids
- Trend lactate
- Replete electrolytes with K>4, Mg>2
- Continue mechanical ventilation
- No SAT/SBT given that we are starting to cool with targeted temperature management
- Aspiration precautions keeping HOB >30-45�
- Maintain SpO2 >94%
- Adjust ventilator as needed based on blood gases to optimize pH with goal >7.3 and <7.5
- prn nebulized bronchodilators - not currently bronchospastic
- Start antibiotics with Unasyn for suspected pneumonia
- Check blood cultures as well as sputum cultures
- Check urine antigens for Legionella + strep pneumonia
- Renally dose all medications/antibiotics
- Trend UOP and continue strict I/O
- Consider nephro consult
- Maintain euglycemia with goal BG 140-180 - currently on insulin gtt
- Trend H/H and transfuse if needed to keep Hb>8g/dL; keep plt>20k
- DVT ppx: HSQ
Goals of care discussion: After patient arrived to the CVICU, the patient's family with his and 2 daughters spoke to the hospitalist, Dr. Leon, the neurologist, Dr. Kiser and myself, Dr. Ch. Patient remains critically ill and his CT head
already shows signs of hypoxic�anoxic brain injury. His labs and imaging were explained in layman's terms and we even showed the imaging of his brain CT to the family. 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
this' including the stents or to remain intubated. Given that he is critically ill and has a high chance of further deterioration and possibly another cardiac arrest, family opted to make him DNR/DNI with otherwise continuation of full medical
management. All questions were answered and emotional support was provided.
Continue ICU level of care for this critically ill patient
Critical care statement: A total of 46 minutes of critical care time was provided for this patient today. This includes management of unstable vital signs, evaluation of the patient at bedside, reviewing the patient's pertinent medical records
including radiographs, microbiology, laboratory evaluations, and discussion with primary team, consultants, pharmacy, nutrition, physical therapy, case management, charge nurse, critical care nursing, and respiratory therapy.
Data:
CT Head 10/19/2024: No acute intracranial hemorrhage; findings suspicious for mild/early diffuse cerebral edema.
--- NOTE | 2024-10-19 11:00 | PTCARENOTE ---
Received pt from vat house laborer team. Intubated with # 7.5 ETT at 23 cm. Vent at AC rate 24 fio2 100% tv 550 peep 5. pulse ox 88% Pt with pink foam draining from mouth. Lungs coarse t/o. Pupils pinpoint. minimal reaction to light. Tremors from
nipple line to calves. ST 140-150 on monitor. Radial A line transducing. Rt radial TR band also in place at present. Drips infusing on arrival as follows: Amio, Sodium bicarb, insulin. See flow sheet for totals / titrations. Rt femoral venous
sheath in place with KVO. LT IO int in place. DP pulses palpable.
--- NOTE | 2024-10-19 11:14 | CON.CAR ---
Consultation
Consultation Request
Date/Time Consultation Requested: 10/19/24
Date/Time Consultation Performed: 10/19/24
Requesting Provider: Pacheco Taylor
Performing Provider: Erin Chou MD
Reason for Consultation: Chest pain, cardiac arrest
Medical History
-
Chief Complaint: Cardiac arrest
History of Present Illness:
Sunil is a 49-year-old morbidly obese gentleman with past medical history of hypertension, hyperlipidemia, type 2 diabetes mellitus, obstructive sleep apnea, not on CPAP, not on any medications given patient does not believe in medications who is
brought in by EMS after being found to have VT VF cardiac arrest. Per who obtains most of the history given patient is intubated, patient reported short-lived episode of chest discomfort last week however they did not make anything of it given
it was self-limiting. He also had another episode of substernal chest discomfort last night which lasted about 5 to 10 minutes. asked patient if they should go out and get some aspirin or go to the emergency room for an evaluation however
patient opted to not take any medications or present to the ED but instead drank water with some cell and it which resolved his symptoms supposedly and went to sleep. Around 5:20 AM noted that patient's snoring was lower than his baseline and
he was gargling which was different than ever before. She turned the lights on and noted that patient had been incontinent of urine. In the setting she called EMS and she was directed to start CPR at home. Per ED, EMS reached their 7 minutes
after they got the phone call and patient was found to be in VF needing ACLS, recurrent shocks, total of 8. In the emergency room he continued to have bradycardic events needing ongoing epinephrine and CPR with no further shocks. With transient
ROSC initially his EKG showed ST elevations in the inferior leads however patient went back into VF needing another round of ACLS before achieving ROSC. In the emergency room he was on 20 mcg of epinephrine drip, intubated sedated, had received
full dose aspirin rectally, not on any sedation. He was also started on amnio drip. Initial head CT on the way to the heart catheterization lab showed no acute bleed however did show signs of possible early anoxic brain injury. Extensive
discussion was had with the patient's and daughter given the mention that patient does not believe in medicines and may not want stents, considering options of medical therapy only with increased risk for Mace events and mortality versus moving
forward with heart catheterization and they specifically noted that patient would not want to and therefore they would like us to do everything and patient's showed us that she would make patient take medications if he survives it. Given
significant downtime, we also discussed at the time of consent that overall prognosis is very guarded likely from his neurologic status. Patient works for [employer] and has been active over the last week without significant limitations other than
fatigue. Of note, he had lab work last about 10 to 12 years ago which is when he was found to be diabetic and hypertensive but has chosen to not be on any medications and following the 'natural route'.
Past Medical History
Past Medical History: HTN, Hypercholesterolemia, NIDDM and Other (obesity)
Past Surgical History: None
Social History
Tobacco: Non-Smoker
Alcohol: Occasional
Drug: None
Personal:
Living: With Family
Employment: Other ([employer])
Family History
Family History: Early CAD
Allergies / Home Medications
Allergy/AdvReac Type Severity Reaction Status Date / Time
No Known Allergies Allergy Unverified 10/19/24 06:44
�Medication �Instructions �Recorded �Confirmed �Type
No Meds [No Current Medications] 10/19/24 10/19/24 History
Review of Systems
-
Unable to obtain full review of systems at this time due to: Patient Intubation and Patient Non Verbal
Physical Exam
Vital Signs
Pulse Resp BP Pulse Ox
122 10 167/107 100
10/19/24 07:15 10/19/24 06:38 10/19/24 07:15 10/19/24 07:15
Lab Results
10/19/24 06:39
10/19/24 09:11
Troponin I 1.520 ng/ml H* 10/19/24 06:39
Physical Exam
General: Intubated and Other (morbid obesity)
HEENT: Other (At times breathing over the vent)
Respiratory: Other (At times breathing over the vent)
Cardiac: Regular Rhythm and Other (tachycardic); Negative Murmur, Rub or Peripheral Edema
Breast: Deferred by me
GI: Soft, Non Tender, Non Distended and Normal Bowel Sounds
Musculoskeletal: No Clubbing, No Cyanosis and No Edema
Skin: Warm and Dry
Neuro: Other (intubated, pupils not reactive)
Impression / Plan
-
Sunil is a 49-year-old morbidly obese gentleman with past medical history of hypertension, hyperlipidemia, type 2 diabetes mellitus, obstructive sleep apnea, not on CPAP, not on any medications given patient does not believe in medications who is
brought in by EMS after being found to have VT VF cardiac arrest. Per who obtains most of the history given patient is intubated, patient reported short-lived episode of chest discomfort last week however they did not make anything of it given
it was self-limiting. He also had another episode of substernal chest discomfort last night which lasted about 5 to 10 minutes. asked patient if they should go out and get some aspirin or go to the emergency room for an evaluation however
patient opted to not take any medications or present to the ED but instead drank water with some cell and it which resolved his symptoms supposedly and went to sleep. Around 5:20 AM noted that patient's snoring was lower than his baseline and
he was gargling which was different than ever before. She turned the lights on and noted that patient had been incontinent of urine. In the setting she called EMS and she was directed to start CPR at home. Per ED, EMS reached their 7 minutes
after they got the phone call and patient was found to be in VF needing ACLS, recurrent shocks, total of 8. In the emergency room he continued to have bradycardic events needing ongoing epinephrine and CPR with no further shocks. With transient
ROSC initially his EKG showed ST elevations in the inferior leads however patient went back into VF needing another round of ACLS before achieving ROSC. In the emergency room he was on 20 mcg of epinephrine drip, intubated sedated, had received
full dose aspirin rectally, not on any sedation. He was also started on amnio drip. Patient was seen and evaluated in the emergency room with extensive discussion with the family. Initial head CT on the way to the heart catheterization lab showed
no acute bleed however did show signs of possible early anoxic brain injury. Extensive discussion was had with the patient's and daughter given the mention that patient does not believe in medicines and may not want stents, considering options
of medical therapy only with increased risk for Mace events and mortality versus moving forward with heart catheterization and they specifically noted that patient would not want to and therefore they would like us to do everything and patient's
showed us that she would make patient take medications if he survives it. Given significant downtime, we also discussed at the time of consent that overall prognosis is very guarded likely from his neurologic status. Patient works for [employer] and has been active over the last week without significant limitations other than fatigue. Of note, he had lab work last about 10 to 12 years ago which is when he was found to be diabetic and hypertensive but has chosen to not be on any
medications and following the 'natural route'.
Inferior ST elevation [place], due to 100% proximal RCA thrombotic occlusion, status post successful percutaneous coronary artery intervention of 100% thrombotic proximal RCA occlusion (ZEN 0 flow) post thrombectomy with 3 overlapping 2.75 x 26 mm, and
3.0 x 8 mm Medtronic [place] drug-eluting stents and a 3.0 x 15 mm Xience jerri point drug-eluting stent, postdilated using IVUS guidance with a 3.0 x 20 mm NC balloon at 18 ayan distally and a 3.25 x 15 mm NC balloon at 20 ayan proximally with an
excellent angiographic and IVUS based result.
Morbid obesity
Hypertension
Hyperlipidemia
Type 2 diabetes mellitus
Obstructive sleep apnea
Family history of premature coronary artery disease
Non-smoker
Not on any chronic medications
Right heart cath: RA (m) : 23
RV (s/d,m) : 48/22, 27
PA (s/d, m) : 47/35, 40
PCWP (m) : 29
PA saturation: 66.1% on 60% FiO2 via ventilator
AO saturation: 95.5% on 60% FiO2 via ventilator
RA saturation: 63.4% on 60% FiO2 via ventilator
Cardiac Output : 4.8 L/min
Cardiac Index : 2.28 L/min/m-2
Systemic vascular resistance: 1102 dsc^(-5)
Pulmonary vascular resistance: 2.88 nair unit
AO (s/d) : 119/80
LV (s/d) : 118/60
LVEDP : 23
Recommendations:
1. Patient was initially seen and examined in the emergency room with multiple discussions with family members before and after the heart catheterization procedure.
2. Uninterrupted dual antiplatelet therapy with daily baby aspirin and Brilinta 90 mg twice daily, high intensity statin and beta-luis alberto as tolerated.
3. Full echocardiogram to assess biventricular function and rule out any significant valvular abnormalities.
4. Aggressive management of cardiovascular risk factors. Lipid panel and hemoglobin A1c will be checked.
5. Trend ECGs and troponins to peak. Nitroglycerin drip as needed for ongoing hypertension.
6. Wean ventilator as tolerated.
7. Industrial Cafeteria Manager and neurology consults.
8. Eventual referral for outpatient cardiac rehab if patient survives this event with a meaningful neurologic recovery. Overall is discussed with family, prognosis remains guarded mainly from a neurologic standpoint.
Data Reviewed
-
EKG: Tracing Personally Visualized and interpreted
Radiology: Image Personally Visualized and interpreted
Labs: Labs Reviewed by me
Critical Care Time (in minutes): 92
[2024-10-19] MEDS: SUBLIMAZE 100 MCG IV (11:20)
[2024-10-19 11:26] LABS: B.E. - POC -7.9 mmol/L; Blood Urea Nitrogen - POC 17 mg/dl (3-120); Chloride - POC 106 mmol/L (96-111); Creatinine - POC 1.62 mg/dl (0.3-1.0); Glucose - POC 549 mg/dl (70-99); HCO3 - POC 22 mmol/L (21-28); Hematocrit - POC 48 % PCV (42-52); Hemodilution- POC No; Hemoglobin Calculated - POC 16.4; Ionized Calcium - POC 1.09 mmol/L (1.15-1.33); Lactate - POC 12.26 mmol/L (0.36-0.75); O2 Saturation %Calculated-POC 39.4 % (94-98); PCO2 - POC 62 mmHg (35-48); PO2 - POC 29 mmHg (83-108); Potassium - POC 3.6 mmol/L (3.5-5.1); Sodium - POC 147 mmol/L (136-145); Specimen Type - POC Venous; pH - POC 7.16 (7.35-7.45)
[2024-10-19 11:26] LABS: Glucose - Point of Care > 600 mg/dl (70-99)
--- NOTE | 2024-10-19 11:45 | CON.NEURO ---
Neuro Assessment/Plan
Assessment
Head CT imgs reviewed with Dr Tanner, Dr Leon, and patient's family, severe loss of carrasco/white differentiation; noted that report says early/mild
spoke with family along with Dr Tanner, Dr Leon, no possibility for a meaningful recovery with this CT scan; best possible outcome is that he dies naturally
Plan
EEG tomorrow
Consultation
Order
Date of Consultation: 10/19/24
Requesting Provider: Nathaly Leon
Reason for Consult: anoxic brain injury
Subjective/Objective
Subjective Data
Date of Service: October 19, 2024
49 year old man, cardiac arrest, resuscitation ~50 Minutes, CPR, ROSC, cath, 3 stents. just got up to ICU. reports he was complaining of chest pain the evening before, drank some salt water as he only does natural treatments; felt better and
went to bed. at 5:15 am, couldn't wake him and called EMS
Objective Data
Vital Signs
Temp Pulse Resp BP Pulse Ox
38.7 C H 122 24 167/107 77
10/19/24 11:26 10/19/24 07:15 10/19/24 11:26 10/19/24 07:15 10/19/24 11:26
Lab Results
10/19/24 06:39
PT 14.4 Sec (11.4-14.6) 10/19/24 06:39
INR 1.09 10/19/24 06:39
APTT 37.2 Sec (23.4-35.0) H 10/19/24 06:39
Sodium 138 mmol/L (135-145) 10/19/24 09:11
Potassium 4.8 mmol/L (3.5-5.1) 10/19/24 09:11
BUN 17 mg/dl (9-20) 10/19/24 09:11
Glucose 634 mg/dl (70-99) H* 10/19/24 09:11
Calcium 7.1 mg/dl (8.4-10.2) L 10/19/24 09:11
Patient Allergies
No Known Allergies Allergy (Unverified 10/19/24 06:44)
Physical Exam
-
coma
overbreathing vent
pupils sluggish
no corneal, VOR, or cough
no response noxious stim x4
Medications
-
Active Medications
Generic Name Dose Route Start Last Admin
Trade Name Freq PRN Reason Stop Dose Admin
Acetaminophen 650 mg 10/19/24 11:10
Acetaminophen 325 Mg Tablet PO 11/16/24 11:09
[id number] PRN
mild pain
Aspirin 81 mg 10/20/24 08:00
Aspirin 81 Mg Chewable Tablet PO 11/17/24 07:59
DAILY ARPIL
Bisacodyl 10 mg 10/19/24 10:48
Bisacodyl 10 Mg Rectal Suppository RECTAL 11/16/24 10:47
[id number] PRN
constipation
Dextrose 12.5 grams 10/19/24 11:28
Dextrose 50% (0.5 Grams/Ml) 50 Ml Syringe IV 11/16/24 11:27
[id number] PRN
Blood Glucose < 70
Fentanyl Citrate 50 mcg 10/19/24 11:12
Fentanyl (50 Mcg/Ml) 100 Mcg/2 Ml Ampul IV 11/02/24 11:11
[id number] PRN
see protocol
Protocol
Heparin Sodium 5,000 units 10/19/24 20:00
Heparin 5,000 Units/Ml 1 Ml Vial SC 11/16/24 19:59
Q12 APRIL
Sodium Chloride 1,000 mls @ 0 mls/hr 10/19/24 11:15
Nss IV 10/20/24 11:12
PER PROTOCOL APRIL
Protocol
Per Protocol
Fentanyl Citrate 1,000 mcg in 100 mls @ 0 mls/hr 10/19/24 11:15
Sublimaze IV
PER PROTOCOL APRIL
Protocol
Per Protocol
Amiodarone HCl 900 mg/ 518 mls @ 0 mls/hr 10/19/24 11:15
Dextrose/Water IV
PER PROTOCOL APRIL
Protocol
Per Protocol
Propofol 1,000,000 mcg in 100 mls @ 0 mls/hr 10/19/24 11:30
Diprivan IV
PER PROTOCOL APRIL
Protocol
Per Protocol
Ampicillin Sodium/Sulbactam 120 mls @ 240 mls/hr 10/19/24 12:00
Sodium 3 gm/ Sodium Chloride IV
Q6H APRIL
Insulin Human Regular 100 units in 100 mls @ 0 mls/hr 10/19/24 11:30
Novolin R Insulin Infusion IV
PER PROTOCOL APRIL
Protocol
Per Protocol
Insulin Aspart 0 units 10/19/24 12:00
Insulin Aspart Moderate Resistance 300 Units/3 Ml Pen.Injctr SC 11/16/24 11:59
Q6 APRIL
Protocol
Insulin Aspart 0 units 10/19/24 11:30
Insulin Aspart (100 Units/Ml) 3 Ml Flexpen SC 11/16/24 11:29
AC APRIL
Protocol
Metoprolol Succinate 25 mg 10/19/24 12:00
Metoprolol 25 Mg Extended Release Tablet PO 11/16/24 11:59
DAILY APRIL
Pantoprazole Sodium 40 mg 10/20/24 08:00
Pantoprazole Sodium 40 Mg/10 Ml Vial IV 11/17/24 07:59
DAILY APRIL
Pharmacy Profile Note 0 unit 10/19/24 11:[address] 1 Unit PO 10/19/24 11:29
NOW STA
Polyethylene Glycol 17 grams 10/19/24 10:48
Polyethylene Glycol Powder 17 Grams Packet PO 11/16/24 10:47
DAILYPRN PRN
constipation
Polyethylene Glycol 17 grams 10/20/24 08:00
Polyethylene Glycol Powder 17 Grams Packet TUBE 11/17/24 07:59
DAILY APRIL
Rosuvastatin Calcium 40 mg 10/19/24 12:00
Rosuvastatin (Crestor) 40 Mg Tablet PO 10/19/24 12:01
ONCE@1200 ONE
Senna/Docusate Sodium 1 tablet 10/19/24 10:48
Docusate W/Senna (Nuris-Colace) Tablet PO 11/16/24 10:47
BIDPRN PRN
constipation
Sodium Chloride 0 flush 10/19/24 12:00
Sodium Chloride 0.9% (Flush) Syringe IV 11/16/24 11:59
PER PROTOCOL APRIL
Sodium Chloride 10 ml 10/20/24 08:00
Sodium Chloride 0.9% (Preservative Free) 10 Ml Vial IV 11/17/24 07:59
DAILY APRIL
Ticagrelor 90 mg 10/19/24 20:00
Ticagrelor (Brilinta) 90 Mg Tablet PO 11/16/24 19:59
BID APRIL
Home Medications
�Medication �Instructions �Recorded
No Meds [No Current Medications] 10/19/24
--- NOTE | 2024-10-19 11:53 | PTCARENOTE ---
Pt with visible tremors fentanyl ordered and administered, BP plummeted to sbp 50 , Jump Roll Operator at bedside, 1 gm calcium IVP given, followed by 1 am sodium bicarb, bp not responding, additional 1 gm IVP calcium given , Levophed drip initiated, Epi i
mg IVP administered, EPI drip initated, Trigeminy noted on monitor, pulse thready. pulse ox dropping to 78%, Additional sodium bicarb administered. BP responding . Echo at bedside.
[2024-10-19] MEDS: CORDARONE 518 MG IV (12:13)
[2024-10-19] MEDS: NOVOLIN R 10 UNITS IV (12:14)
[2024-10-19] MEDS: NOVOLIN R INSULIN INFUSION 100 IV ×2 (12:15→21:29)
[2024-10-19] MEDS: ADRENALIN 250 IV (12:19)
[2024-10-19 12:27] LABS: Lactic Acid 10.8 mmol/L (0.7-2.0)
[2024-10-19] MEDS: UNASYN IV ×2 (12:33→17:58)
[2024-10-19 12:37] LABS: Albumin 3.5 g/dl (3.5-5.0); Alkaline Phosphatase 154 U/L (38-126); Blood Urea Nitrogen 20 mg/dl (9-20); Calcium 10.5 mg/dl (8.4-10.2); Carbon Dioxide 23 mmol/L (22-30); Chloride 102 mmol/L (98-107); Glucose 598 mg/dl (70-99); Potassium 3.8 mmol/L (3.5-5.1); Sodium 140 mmol/L (135-145); Total Bilirubin 0.7 mg/dl (0.2-1.3); Triglycerides 364 mg/dl (10-149); eGFR 48.21
[2024-10-19] MEDS: DIPRIVAN 100 IV ×2 (12:40→17:58)
[2024-10-19] MEDS: SUBLIMAZE 100 IV (12:41)
[2024-10-19 12:48] LABS: ALT (SGPT) 675 U/L (0-50); AST (SGOT) 1246 U/L (17-59)
[2024-10-19 12:51] LABS: Glucose - Point of Care 514 mg/dl (70-99)
--- NOTE | 2024-10-19 13:02 | PTCARENOTE ---
Febrile, temp 102.5, ice packs applied to bilateral axillas and groins. Cooling blanket called for and then applied
[2024-10-19 13:06] LABS: B.E. - POC -6.8 mmol/L; Blood Urea Nitrogen - POC 19 mg/dl (3-120); Chloride - POC 104 mmol/L (96-111); Creatinine - POC 1.82 mg/dl (0.3-1.0); Glucose - POC 645 mg/dl (70-99); HCO3 - POC 23 mmol/L (21-28); Hematocrit - POC 43 % PCV (42-52); Hemodilution- POC No; Hemoglobin Calculated - POC 14.8; Ionized Calcium - POC 1.58 mmol/L (1.15-1.33); O2 Saturation %Calculated-POC 95.6 % (94-98); PCO2 - POC 66 mmHg (35-48); PO2 - POC 103 mmHg (83-108); Potassium - POC 3.8 mmol/L (3.5-5.1); Sodium - POC 147 mmol/L (136-145); Specimen Type - POC Arterial; pH - POC 7.16 (7.35-7.45)
[2024-10-19 13:16] LABS: Amphetamines Negative (Negative); Barbiturates Negative (Negative); Benzodiazepines Negative (Negative); Buprenorphine Negative (Negative); Cocaine Negative (Negative); Marijuana Negative (Negative); Methadone Negative (Negative); Methamphetamines Negative (Negative); Opiates Negative (Negative); Phencyclidine Negative (Negative); Tricyclic Antidepressants Negative (Negative)
[2024-10-19] MEDS: OFIRMEV 100 IV (13:24)
[2024-10-19] MEDS: NSS 500 IV ×4 (13:30→15:19)
[2024-10-19] MEDS: BUSPAR 30 MG TUBE (13:39)
[2024-10-19 13:44] LABS: Glucose 547 mg/dl (70-99)
[2024-10-19 14:09] LABS: Glucose - Point of Care 435 mg/dl (70-99)
[2024-10-19] MEDS: SODIUM BICARBONATE 100 MEQ IV (14:13)
[2024-10-19] MEDS: CALCIUM CHLORIDE 10% SYRINGE 2000 MG IV (14:13)
[2024-10-19 14:30] LABS: INR 1.14; PT 14.9 Sec (11.4-14.6)
[2024-10-19 14:32] LABS: APTT 74.7 Sec (23.4-35.0)
[2024-10-19] MEDS: DEMEROL 12.5 MG IV (14:39)
[2024-10-19 14:43] LABS: NT-proBNP 7270 pg/ml
[2024-10-19 14:52] LABS: Glucose 472 mg/dl (70-99); Triglycerides 399 mg/dl (10-149)
[2024-10-19] MEDS: SODIUM BICARBONATE 1150 MEQ IV (14:58)
[2024-10-19 15:05] LABS: Prealbumin (Transthyretin) 24.1 mg/dl (17.6-36.0)
[2024-10-19 15:05] LABS: B.E. -3.8 mmol/L; HCO3 21.5 mmol/L (21-28); O2 Saturation % 99.5 % (94-98); PCO2 39 mmHg (35-48); PO2 178 mmHg (83-108); pH 7.35 (7.35-7.45)
--- NOTE | 2024-10-19 15:07 | PTCARENOTE ---
TTM protocol initiated after group discussion by MD's , Pt also a Full Code now per MD / discussion. Code cart outside of room .
[2024-10-19] MEDS: KCL 100 IV (15:19)
--- NOTE | 2024-10-19 16:05 | PTCARENOTE ---
BP down to 40 systolic abruptly, Pt laid flat, cuff pressure confirmed, EPI drip titrated, 1 gm Calcium given IVP per order. Pt bp responded with medication. Re assessment preformed, pupils currently 6 mm bilaterally and non reactive. Neuro
changes relayed to cable supervisor and staying machine operator.
[2024-10-19 16:24] LABS: Glucose - Point of Care 351 mg/dl (70-99)
--- NOTE | 2024-10-19 16:36 | W.PN.UPDATE ---
Update Note
Progress Note Update
Interventional cardiology update note
This is a summary of multiple events since the heart catheterization with multiple bedside as well as offline discussions with remainder of the team including hospitalist, automotive general manager, CT PA, nursing and family.
Soon after being moved from the heart catheterization lab where he was hemodynamically stable off pressors, patient had a transient event of hypotension in the CVICU needing a push of epinephrine and was started on Levophed drip which soon increased
to about 15 mcg/kg/min. Lab work were checked with initial lactate increased to 10, electrolytes were repleted as needed. Patient was not yet started on the cooling protocol.
He had another event soon after not associated with any arrhythmias in the setting of persistent sinus tachycardia with transient hypotension from unclear etiology requiring addition of an epinephrine drip given Levophed was at this point at 20
mcg/kg/min. His pH on bedside lab work worsened slightly at 7.16 with elevated P CO2 and stable oxygenation status. He was putting out well to the 40 IV Lasix. Acute liver injury and acute kidney injury were also noted.
Extensive discussions were had with patient's given team members were getting variable input from the family in regards to CODE STATUS and what patient would want. Given he is status post a inferior ST elevation [place] and a cardiac arrest, we all
recognize that his overall prognosis continues to remain guarded especially with initial CT scan showing signs concerning for possible early anoxic brain injury, mild cerebral edema however currently I believe his long-term prognosis is still
unclear given timing since the event. We discussed pursuing TTM with goal temperature of 36 degrees and plan to rewarm after that and reassess neurologic status at that point. Given he is less than 12 hours since an inferior wall [place], he continues
to remain high risk for fatal arrhythmias from possible shockable arrhythmias that could be easily reversible. After these discussions, patient's agrees that we should pursue full code for now recognizing that at any point if she feels like we
are pursuing measures against patient's wishes we would rediscuss and reassess.
Repeat lab work showed improved lactate on bedside check at 6 with improved ABG with pH up to 7.35 and pCO2 of 39. Patient had been stable at this point down to 15 mcg of Levophed and 5 mcg of epinephrine. Suddenly, he had a third episode of
transient hypotension around 4 PM. Patient was reassessed by me at bedside around 4:20-4:30 PM. The episode was very transient and patient responded well to 1 amp of calcium and increased pressors. By the time I assessed him at bedside he was
down back to Levophed 15 mcg and epinephrine of 5 mcg with maps around 70-75. We will check a magnesium level as well as a ionized calcium with plan to recheck all other labs around 6 PM unless further clinical changes happen.
I discussed with the and nursing at bedside that we would continue with supportive care as we are unless any major clinical changes. notified me that his daughters would be visiting back again soon and they also discussed with patient's
brother who is driving down from [facility] along with their mother to see the patient.
Erin Chou MD, FACC, [facility]
[2024-10-19] MEDS: CALCIUM CHLORIDE 10% SYRINGE 1000 MG IV (16:44)
[2024-10-19 16:45] LABS: Ionized Calcium 1.38 mMOL/L (1.15-1.33)
[2024-10-19 17:10] LABS: Magnesium 1.6 mg/dl (1.6-2.3)
--- NOTE | 2024-10-19 17:16 | PTCARENOTE ---
Multiple failed attempts to remove air from R band on RT radial site. Site bleeding every time. All 11 ml air remain at present. Will continue to attempt. Cap refill appropriate. pulse ox 100%
[2024-10-19] MEDS: HEPARIN 5000 UNITS SC (17:18)
[2024-10-19 17:20] LABS: Glucose - Point of Care 319 mg/dl (70-99)
[2024-10-19] MEDS: MAGNESIUM SULFATE 50 IV (17:56)
[2024-10-19] MEDS: TYLENOL ORAL SOLUTION 650 MG TUBE (17:59)
[2024-10-19 18:18] LABS: Glucose - Point of Care 354 mg/dl (70-99)
[2024-10-19 18:24] LABS: B.E. -6.3 mmol/L; HCO3 18.2 mmol/L (21-28); O2 Saturation % 98.9 % (94-98); PCO2 33 mmHg (35-48); PO2 115 mmHg (83-108); pH 7.35 (7.35-7.45)
[2024-10-19 18:37] LABS: Lactic Acid 8.7 mmol/L (0.7-2.0)
[2024-10-19 18:41] LABS: Albumin 3.2 g/dl (3.5-5.0); Alkaline Phosphatase 121 U/L (38-126); Blood Urea Nitrogen 20 mg/dl (9-20); Calcium 9.9 mg/dl (8.4-10.2); Carbon Dioxide 18 mmol/L (22-30); Chloride 109 mmol/L (98-107); Estimated Creatinine Clearance 51 ml/min; Glucose 367 mg/dl (70-99); Magnesium 1.6 mg/dl (1.6-2.3); Phosphorus 3.4 mg/dl (2.5-4.5); Potassium 3.3 mmol/L (3.5-5.1); Sodium 142 mmol/L (135-145); Total Bilirubin 1.5 mg/dl (0.2-1.3); Total Protein 5.7 g/dl (6.3-8.2); eGFR 42.18
[2024-10-19 18:46] LABS: % Basophils 0.1 % (0-2); % Immature Granulocytes 0.7 % (0-0.5); % Lymphocytes 9.5 % (20.5-51.1); % Monocytes 9.7 % (1.7-9.3); Absolute Immature Granulocytes 0.1 10^3/uL (0-0.05); Absolute Lymphocytes 1.6 10^3/uL (1.2-3.4); Absolute Monocytes 1.7 10^3/uL (0.1-0.6); Absolute Neutrophils 13.7 10^3/uL (1.4-6.5); Hematocrit 43.4 % (39.0-52.0); Hemoglobin 15.3 g/dL (13.0-18.0); Mean Corp Hgb Conc. 35.3 g/dL (33.0-37.0); Mean Corpuscular Hgb 30.4 pg (27.0-31.0); Mean Corpuscular Volume 86.3 fL (80.0-94.0); Mean Platelet Volume 10.6 fL (7.4-10.4); Nucleated Red Blood Cells % 0.1 % (-); Platelet Count 286 10^3/uL (130-400); Red Blood Cell Count 5.03 10^6/uL (4.70-6.10); Red Cell Dist. Width 13.2 % (11.5-14.5); White Blood Cell Count 17.2 10^3/uL (4.8-10.8)
[2024-10-19 18:47] LABS: AST (SGOT) 1040 U/L (17-59)
[2024-10-19 18:50] LABS: Total CK 4240 U/L (55-170)
[2024-10-19 18:55] LABS: ALT (SGPT) 610 U/L (0-50)
[2024-10-19 19:17] LABS: Glucose - Point of Care 349 mg/dl (70-99)
[2024-10-19] MEDS: REFRESH CELLUVISC GEL 1 DROPS OPHTH (19:57)
[2024-10-19] MEDS: LEVOPHED 258 MG IV (19:57)
[2024-10-19] MEDS: BRILINTA 90 MG PO (19:57)
--- NOTE | 2024-10-19 20:00 | PTCARENOTE ---
Addendum entered by Emma Gant RN 10/20/24 04:11:
peep 8 not 5
Original Note:
Patient received in bed on TTM, unresponsive, no cough, no gag, no corneal, pupils fixed. Sinus Tachycardia on monitor, blood pressure very labile. +anasarca noted, + sclera edema noted. #7.5 ETT at 22 cm at the right lip, AC 28 TV 550 FIO3 80%
Peep 5, lungs coarse. NG tube in right nare to LIS, abdomen round, hypoactive bowel sounds. Therimister griffith draining yellow urine. #20 g in LAC with Levophed and Epinephrine gtts, #20 g in left wrist with fentanyl and propofol gtts. #18 g in
RAC with Bicrab gtt, right femoral sheath with Amiodarone gtt, right leg IO with insulin gtt. Family at bedside.
[2024-10-19 20:06] LABS: Glucose - Point of Care 317 mg/dl (70-99)
[2024-10-19] MEDS: KCL 270 MEQ IV (20:40)
[2024-10-19] MEDS: PITRESSIN 100 IV (20:54)
--- NOTE | 2024-10-19 21:00 | PTCARENOTE ---
Blood pressure continues to be very labile, Vasopressin gtt added, Levoophed gtt maxed at 30 mcg/min
[2024-10-19 21:04] LABS: Glucose - Point of Care 304 mg/dl (70-99)
[2024-10-19] MEDS: NEO-SYNEPHRINE 1% 260 MG IV (21:32)
--- NOTE | 2024-10-19 21:32 | W.PN.UPDATE ---
Update Note
Progress Note Update
10/19/24
2044- Dr. Chou, macaroni maker, called for updated, case discussed, recommendations received. Agreed with addition of vasopressor: vasopressin and if needed lorenzo gtt.
[2024-10-19 21:59] LABS: Glucose - Point of Care 276 mg/dl (70-99)
[2024-10-19 23:02] LABS: Glucose - Point of Care 257 mg/dl (70-99)
[2024-10-20] VITALS (21 sets, daily range): BP systolic 75–160; BP diastolic 59–102; BMI 37.0
[2024-10-20 00:09] LABS: Glucose - Point of Care 236 mg/dl (70-99)
[2024-10-20 00:23] LABS: B.E. -6.8 mmol/L; HCO3 16.1 mmol/L (21-28); PCO2 26 mmHg (35-48); PO2 79 mmHg (83-108)
[2024-10-20 00:25] LABS: O2 Therapy per protocol
[2024-10-20] MEDS: TYLENOL ORAL SOLUTION 650 MG TUBE ×5 (00:25→23:45)
[2024-10-20] MEDS: BUSPAR 30 MG TUBE ×4 (00:26→23:45)
[2024-10-20] MEDS: HEPARIN 5000 UNITS SC ×4 (00:26→23:45)
[2024-10-20] MEDS: UNASYN IV ×4 (00:27→17:16)
[2024-10-20 00:39] LABS: % Basophils 0.1 % (0-2); % Eosinophils 0.1 % (0-6); % Immature Granulocytes 1.3 % (0-0.5); % Lymphocytes 18.8 % (20.5-51.1); % Monocytes 7.8 % (1.7-9.3); % Neutrophils 71.9 % (42.2-75.2); Absolute Immature Granulocytes 0.2 10^3/uL (0-0.05); Absolute Lymphocytes 3.2 10^3/uL (1.2-3.4); Absolute Monocytes 1.3 10^3/uL (0.1-0.6); Hematocrit 41.7 % (39.0-52.0); Hemoglobin 14.9 g/dL (13.0-18.0); Mean Corp Hgb Conc. 35.7 g/dL (33.0-37.0); Mean Corpuscular Hgb 30.3 pg (27.0-31.0); Mean Corpuscular Volume 84.9 fL (80.0-94.0); Mean Platelet Volume 10.6 fL (7.4-10.4); Nucleated Red Blood Cells % 0.2 % (-); Platelet Count 229 10^3/uL (130-400); Red Blood Cell Count 4.91 10^6/uL (4.70-6.10); Red Cell Dist. Width 13.2 % (11.5-14.5); White Blood Cell Count 16.7 10^3/uL (4.8-10.8)
[2024-10-20 00:41] LABS: AST (SGOT) 650 U/L (17-59); Albumin 3.4 g/dl (3.5-5.0); Alkaline Phosphatase 112 U/L (38-126); Blood Urea Nitrogen 22 mg/dl (9-20); Calcium 9.3 mg/dl (8.4-10.2); Carbon Dioxide 15 mmol/L (22-30); Chloride 111 mmol/L (98-107); Estimated Creatinine Clearance 46 ml/min; Glucose 245 mg/dl (70-99); Lactic Acid 7.2 mmol/L (0.7-2.0); Phosphorus 2.8 mg/dl (2.5-4.5); Sodium 143 mmol/L (135-145); Total Bilirubin 1.3 mg/dl (0.2-1.3); Total Protein 5.8 g/dl (6.3-8.2); eGFR 37.41
--- NOTE | 2024-10-20 00:45 | PTCARENOTE ---
Addendum entered by Emma Gant RN 10/20/24 01:48:
RR changed
Original Note:
ABG noted, FIO2 increased to 100%
[2024-10-20 00:52] LABS: ALT (SGPT) 568 U/L (0-50); Creatine Phosphokinase 3093 U/L (55-170); Total CK 3093 U/L (55-170)
[2024-10-20] MEDS: NOVOLIN R INSULIN INFUSION 100 IV ×2 (01:06→06:17)
[2024-10-20] MEDS: CORDARONE 518 MG IV (01:08)
[2024-10-20 01:16] LABS: CKMB 95.8 ng/ml (0.0-3.4)
[2024-10-20 01:16] LABS: Glucose - Point of Care 221 mg/dl (70-99)
[2024-10-20] MEDS: KCL ELIXIR 40 MEQ TUBE ×2 (01:27→06:23)
--- NOTE | 2024-10-20 02:00 | PTCARENOTE ---
3 ml removed from right radial TR band, no oozing noted.
[2024-10-20] MEDS: KCL 270 MEQ IV (02:04)
--- NOTE | 2024-10-20 02:15 | PTCARENOTE ---
Moustapha Synephrine added, attempting to wean epi gtt. Family at bedside
[2024-10-20 02:20] LABS: Glucose - Point of Care 208 mg/dl (70-99)
[2024-10-20 03:09] LABS: Glucose - Point of Care 192 mg/dl (70-99)
[2024-10-20 04:10] LABS: Glucose - Point of Care 169 mg/dl (70-99)
[2024-10-20] MEDS: LEVOPHED 258 MG IV ×6 (04:27→21:33)
[2024-10-20 05:11] LABS: B.E. -5.2 mmol/L; HCO3 17.5 mmol/L (21-28); O2 Saturation % 99.1 % (94-98); PCO2 27 mmHg (35-48); PO2 148 mmHg (83-108); pH 7.42 (7.35-7.45)
[2024-10-20 05:13] LABS: O2 Therapy VENT
[2024-10-20 05:30] LABS: Lactic Acid 5.2 mmol/L (0.7-2.0)
[2024-10-20 05:40] LABS: INR 1.16; PT 15.1 Sec (11.4-14.6)
[2024-10-20 05:41] LABS: APTT 33.9 Sec (23.4-35.0)
[2024-10-20 05:48] LABS: % Basophils 0.2 % (0-2); % Eosinophils 0.1 % (0-6); % Immature Granulocytes 0.6 % (0-0.5); % Lymphocytes 19.4 % (20.5-51.1); % Monocytes 8.1 % (1.7-9.3); % Neutrophils 71.6 % (42.2-75.2); Absolute Immature Granulocytes 0.1 10^3/uL (0-0.05); Absolute Lymphocytes 3.4 10^3/uL (1.2-3.4); Absolute Monocytes 1.4 10^3/uL (0.1-0.6); Absolute Neutrophils 12.7 10^3/uL (1.4-6.5); Hematocrit 42.8 % (39.0-52.0); Hemoglobin 15.2 g/dL (13.0-18.0); Mean Corp Hgb Conc. 35.5 g/dL (33.0-37.0); Mean Corpuscular Hgb 30.1 pg (27.0-31.0); Mean Corpuscular Volume 84.8 fL (80.0-94.0); Mean Platelet Volume 10.5 fL (7.4-10.4); Nucleated Red Blood Cells % 0.3 % (-); Platelet Count 219 10^3/uL (130-400); Red Blood Cell Count 5.05 10^6/uL (4.70-6.10); Red Cell Dist. Width 13.2 % (11.5-14.5); White Blood Cell Count 17.7 10^3/uL (4.8-10.8)
[2024-10-20] MEDS: SODIUM BICARBONATE 1150 MEQ IV ×2 (05:53→22:22)
[2024-10-20 06:03] LABS: Prealbumin (Transthyretin) 21.3 mg/dl (17.6-36.0)
[2024-10-20] MEDS: DIPRIVAN 100 IV (06:03)
[2024-10-20 06:08] LABS: Albumin 3.2 g/dl (3.5-5.0); Alkaline Phosphatase 94 U/L (38-126); Blood Urea Nitrogen 23 mg/dl (9-20); Calcium 9.1 mg/dl (8.4-10.2); Carbon Dioxide 15 mmol/L (22-30); Chloride 113 mmol/L (98-107); Estimated Creatinine Clearance 42 ml/min; Glucose 138 mg/dl (70-99); HDL Cholesterol 25 mg/dl; LDL Cholesterol, Calculated 96 mg/dl; Magnesium 1.8 mg/dl (1.6-2.3); Potassium 3.7 mmol/L (3.5-5.1); Sodium 144 mmol/L (135-145); Total Bilirubin 1.8 mg/dl (0.2-1.3); Total Cholesterol 193 mg/dl (50-199); Total Protein 5.5 g/dl (6.3-8.2); Triglyceride 364 mg/dl (10-149); Very Low Density Lipoprotein 72 mg/dl (0-30); eGFR 33.54
[2024-10-20 06:11] LABS: Glucose - Point of Care 129 mg/dl (70-99)
--- NOTE | 2024-10-20 06:11 | PTCARENOTE ---
after CXR, patients bllod pressure in the 60s, lorenzo maxed, epi increased to 8, RT at bedside bagging patient due to sats in the low 80s.
[2024-10-20 06:16] LABS: ALT (SGPT) 926 U/L (0-50); AST (SGOT) 903 U/L (17-59)
[2024-10-20] MEDS: PITRESSIN 100 IV ×3 (06:18→21:09)
[2024-10-20] MEDS: SOLU-CORTEF 100 MG IV (06:23)
--- NOTE | 2024-10-20 06:25 | PTCARENOTE ---
Patient continues to have labile blood pressures and respiratory status, epi and lorenzo gtt turned off and vasopressin gtt increased as ordered. Patient continues to need to be bagged, SMALL BATTERY PLATE ASSEMBLER at bedside, family at bedside.
[2024-10-20] MEDS: SODIUM BICARBONATE 50 MEQ IV ×3 (06:32→21:34)
--- NOTE | 2024-10-20 07:30 | PTCARENOTE ---
Assumed care of patient. Pt rec'd intubated and sedated on ventilator and TTM. Pupils 5/fixed. Makes no purposeful movements...unrestrained. No gag, no corneal, no cough noted. S1 S2 reg w/ NSR on monitor. +PP. Trace generalized edema w/ +2
scleral edema. Heels elevated on pillows. #7.5 ETT 23cm right lip...current vent settings: 22/550/+8/100%...sats 87-91%. Lungs diminished throughout. Abdomen obese...no BS. Right nare [place] (65cm) -> LIWS. Draining liquid brown. Temp sensing
griffith draining cloudy yellow urine w/ sediment. Skin warm and dry. Chest w/ multiple abrasions from CPR. Right femoral sheath w/ amiodarone infusing. Right radial kaylie..flushed and zeroed...correlates w/ manual BP. Multiple INT's and right
IO....insulin, IVF's, levophed, vaso, fentanyl, and diprivan infusing...see interventions. at bedside to place central line. Family updated. Will continue to monitor closely.
--- NOTE | 2024-10-20 08:02 | W.PN.HOSP.TC ---
Today's Communication/Plan
-
see A/P
Assessment / Plan
Assessment / Plan
HPI: 49 yo M, PMH HTN, HLD, DM, not on medication due to non-compliance, who p/w cardiac arrest s/p ROSC. He apparently was complaining of chest pain the night before but went to bed at 11 pm. He was found unresponsive in the morning by his at
5:30 am. According to his , she called EMS immediately.
Per ED, he was noted to be in in VT and VF by dock coordinator.
Upon arrival to the ER, he went straight to the Information Director for suspected STEMI.
A/P:
# Cardiac arrest/STEMI
# Ventricular arrhythmia with VT and VF
# Cardiogenic shock
per card, cath showed 100% proximal RCA occlusion, s/p 3 stent placement.
Continue aspirin/Brilinta per card.
Cont amiodarone drip per card
Toprol on hold in shock state
Cont Levophed and added vasopressin for BP support
Echo noted 25 to 30%
Targeted temperature management to keep at 35-36 �C and avoid fever per Financial Sales Representative.
Cardiology on board
Financial Sales Representative on board
# Acute hypoxic respiratory failure
Intubated for airway protection
Vent per Financial Sales Representative
# Likely anoxic brain injury
CT head noted mild/early diffuse cerebral edema.
Despite off sedation, pt does not have meaningful neurologic function
EEG per neuro
# Metabolic acidosis
# Lactic acidosis
Suspect related to cardiac arrest
Follow lactic acid level, improved from 10 to 5
# End organ damages with RUBÉN and shock liver
Trend SCr and LFT
Renal and GI CS
# SIRS suspect 2/2 cardiac arrest
Follow blood cultures
Cont empiric Unasyn
# DM
cont Insulin drip
Accu-Chek
DVT ppx: HSQ
Code: Heating Worker reverted code status to FC
d/w RN
d/w , mother, daughters in person extensively.
CC time 50 min
Anticipated Discharge: > 48 hours
Subjective/Interval History
-
Date of Service: October 20, 2024
Objective Data
-
Labs:
Laboratory Results
10/20/24 10/20/24 10/20/24
00: 05:01 05:03
WBC 16.7 H 17.7 H
Hgb 14.9 15.2
Hct 41.7 42.8
Plt Count 229 219
PT 15.1 H
INR 1.16
APTT 33.9
HCO3 16.1 L 17.5 L
Sodium 143 144
Potassium 3.0 L 3.7
Chloride 111 H 113 H
Carbon Dioxide 15 L 15 L
BUN 22 H 23 H
Creatinine 2.1 H 2.3 H
Glucose 245 H 138 H
Calcium 9.3 9.1
Total Bilirubin 1.3 1.8 H
AST 650 H* 903 H*
ALT 568 H* 926 H*
Alkaline Phosphatase 112 94
10/20/24
07:50
WBC
Hgb
Hct
Plt Count
PT
INR
APTT
HCO3 Pending
Sodium
Potassium
Chloride
Carbon Dioxide
BUN
Creatinine
Glucose
Calcium
Total Bilirubin
AST
ALT
Alkaline Phosphatase
Vital Signs:
Vital Signs
Temp Pulse Resp BP Pulse Ox
35.2 C L 99 22 111/79 95
10/20/24 07:05 10/20/24 03:45 10/20/24 03:45 10/20/24 03:00 10/20/24 04:27
I&O
0310/20/24 10/21/24
06:59 06:59 06:59
Intake Total 6252.0 / 6252.0
Output Total 2014
Balance 4237.0 / 4237.0
Review of Systems
-
Unable to obtain full review of systems at this time due to: Acuity
Physical Exam
-
General: Well Developed, Well Nourished, Respiratory Distress and Obese
HEENT: Normocephalic, Atraumatic, Nose Appears Normal, Ears Appear Normal and Oxygen (on vent)
Respiratory: Non Labored Respirations; Negative Accessory Resp Muscle Use
Cardiac: Regular Rhythm and S1/S2
GI: Soft, Nontender, Nondistended and Normal Bowel Sounds
Data Reviewed
-
CT Scan: Report Reviewed by me and Discussed with Family
Labs: Labs Reviewed by me
--- NOTE | 2024-10-20 08:08 | OR.RPT ---
Operative Report
Operative Report
Left IJ Central Line placement
Indication: Shock, need central access for multiple pressors
Consent obtained from: Patient's spouse at bedside as patient sedated and mechanically ventilated, unable to consent
Time-out was performed and patient was placed in Trendelenburg position. Ultrasound was used to assess patency of left IJ vein. Under sterile conditions area was cleaned with chlorhexidine and then a full body drape was placed. 3 mL of local
anesthesia with lidocaine was injected. Under real-time ultrasound guidance, long axis view, the needle was inserted and vein was punctured, once blood was aspirated, syringe was removed and guidewire was advanced which did not meet any resistance.
Subsequently needle was withdrawn and guidewire was left in place. Ultrasound was used again to confirm presence of guidewire inside the vein lumen. A small bienvenido was placed at the skin and a dilator was advanced to about 50% of its length.
Dilator was removed and central venous catheter was advanced over guidewire and subsequently guidewire was removed. All 3 ports were capped and they were easy to flush and were withdrawing blood without any resistance. Central line was sutured to
the skin and dressing was applied.
Ultrasound of the lungs was performed and good lung sliding was obtained. Patient stayed hemodynamically stable through the procedure.
Complications: None
Blood loss: Minimal
Time spent: 25 min
[2024-10-20 08:17] LABS: Glucose - Point of Care 126 mg/dl (70-99)
[2024-10-20] MEDS: NSS (PRESERVATIVE FREE) 10 ML IV (08:40)
[2024-10-20] MEDS: PROTONIX IV 40 MG IV (08:40)
[2024-10-20] MEDS: REFRESH CELLUVISC GEL 1 DROPS OPHTH ×2 (08:41→19:42)
--- NOTE | 2024-10-20 08:41 | PN.DE.MGMTRT ---
Insulin Management
- -
10/20/2024: Diabetes Management Consult
49 year old male with PMH; HTN, HLD, DM, not on medication due to non-compliance, who p/w cardiac arrest s/p ROSC. He apparently was complaining of chest pain the night before but went to bed at 11 pm. He was found unresponsive in the morning by his
at 5:30 am. According to his , she called EMS immediately. EMS gave him 8 rounds of epinephrine, V. tach/V-fib arrest. Shocked 8 times. Intubated in field with an IO line in the right tibia. Upon arrival to the ER, he went straight to the
Director Of Marketing Operations for suspected STEMI and was found to have 100% occluded proximal RCA with [address] of the head shows diffuse cerebral edema. At this time patient remains intubated, sedated, on pressors and EEG monitoring.
He was started on Critical Care glycemia protocol, glucose 1126 to 221, requiring 10 to 24 units of insulin/hr. AC 11.1%, Cr 2.3, eGFR 33.54
Will make no changes to current care plan. Will cont to follow. Discussed with Nurse and ICU Rounding team
Diabetes History
- -
Type of Diabetes: 2 requiring insulin
Pre-Admission Diabetes Regimen
10/19/24 10/19/24 10/19/24
09:11 12:03 18:13
Creatinine 1.4 H 1.7 H 1.9 H
10/20/24 10/20/24
00:17 05:01
Creatinine 2.1 H 2.3 H
Insulin Pump Settings
IP Diabetes Regimen
10/19/24 10/19/24 10/19/24
08:14 08:59 09:11
Glucose 634 H*
POC Glucose > 600 H* > 600 H*
10/19/24 10/19/24 10/19/24
10:47 12:03 12:49
Glucose 598 H*
POC Glucose > 600 H* 514 H*
10/19/24 10/19/24 10/19/24
12:55 14:07 14:08
Glucose 547 H* 472 H*
POC Glucose 435 H
10/19/24 10/19/24 10/19/24
14:53 15:15 16:14
Glucose Cancelled Cancelled
POC Glucose 351 H
10/19/24 10/19/24 10/19/24
16:53 17:14 17:53
Glucose Cancelled Cancelled
POC Glucose 319 H
10/19/24 10/19/24 10/19/24
18:12 18:13 19:13
Glucose 367 H
POC Glucose 354 H 349 H
10/19/24 10/19/24 10/19/24
19:53 20:05 20:53
Glucose Cancelled Cancelled
POC Glucose 317 H
10/19/24 10/19/24 10/19/24
21:02 21:15 21:58
Glucose Cancelled
POC Glucose 304 H 276 H
10/19/24 10/19/24 10/19/24
22:53 23:01 23:53
Glucose Cancelled Cancelled
POC Glucose 257 H
10/19/24 10/20/24 10/20/24
23:57 00:17 01:05
Glucose 245 H
POC Glucose 236 H 221 H
10/20/24 10/20/24 10/20/24
02:09 02:58 03:59
Glucose
POC Glucose 208 H 192 H 169 H
10/20/24 10/20/24 10/20/24
05:01 06:00 08:05
Glucose 138 H
POC Glucose 129 H 126 H
Patient Education
[2024-10-20] MEDS: LOW STRENGTH ASPIRIN 81 MG PO (08:47)
[2024-10-20] MEDS: BRILINTA 90 MG PO ×2 (08:47→19:43)
[2024-10-20] MEDS: MIRALAX 17 GRAMS TUBE (08:47)
--- NOTE | 2024-10-20 09:06 | CON.GI ---
Addendum entered and electronically signed by Papo Ovalle MD 10/20/24 18:01:
I saw and examined the patient.
The PA's note was reviewed and I agree with the note.
Comment:
49 year-old male admitted after cardiac arrest s/p resuscitation and emergent cardiac catheterization. Unfortunately he appears to have suffered from significant neurologic deficit from prolonged ischemia. His LFT elevation is consistent with
shock liver. Recommend supportive management. GI will sign off.
Original Note:
Consultation
-
Date/Time Consultation Requested: 10/20/24 0746
Date/Time Consultation Performed: 10/20/24814
Requesting Provider: Dr. Leon
Performing Provider: Dr. Ovalle/MICHAEL Solis
Reason for Consultation: elevated LFTs
Medical History
Chief Complaint / HPI
Chief Complaint: cardiac arrest
History of Present Illness:
49-year-old male with past medical history of hypertension, hyperlipidemia diabetes who does not follow with any physicians and does not believe in traditional medicine or taking any medications. Only drinks green tea in the morning. Not on any
supplements or lfas-vlx-rrqrjci medications. Complains of chest pain to his on the evening of 10/18/2024, refused to go to the hospital, went to bed. She awoke to hearing gurgling and patient was unresponsive, she started CPR. Incontinent of
urine. Found to be in cardiac arrest. EMS gave him 8 rounds of epinephrine, V. tach/V-fib arrest. Shocked 8 times. Intubated in field with an IO line in the right tibia. Patient went to the Curriculum Coach and was found to have 100% occluded proximal
RCA with [address] of the head shows diffuse cerebral edema. At this time patient remains on 2 pressors (vasopressin and Levophed). He is currently on EEG monitoring. Discussed with RN at bedside. No signs of GI bleeding. No GI
output. Hemoglobin stable. OG tube in place. Asked to evaluate for elevated LFTs. I discussed with his Faye via telephone [phone], who states that he does not use any uufu-pbh-hcaglhx medications, prescription medications,
supplements at the present time. He only drinks green tea in the morning. He does not drink any alcohol. He does not use any drugs. There is no family history of GI, liver issues that she is aware of. He was not complaining of any GI complaints
leading up to this event. He has never had an endoscopy or colonoscopy before.
Past Medical History
Past Medical History: HTN, Hypercholesterolemia and NIDDM
Past Surgical History: Appendectomy
Social History
Tobacco: Non-Smoker
Alcohol: None
Drug: None
Personal:
Living: With Family
Family History
Family History: Other (No fam hx GI malignancy or Liver disease)
Allergies / Home Medications
Allergy/AdvReac Type Severity Reaction Status Date / Time
No Known Allergies Allergy Verified 10/19/24 13:14
�Medication �Instructions �Recorded
No Meds [No Current Medications] 10/19/24
Review of Systems
-
Unable to obtain full review of systems at this time due to: Patient Intubation
Vital Signs
Temp Pulse Resp BP Pulse Ox
94.0 F L 99 22 111/79 91
10/20/24 08:00 10/20/24 03:45 10/20/24 03:45 10/20/24 03:00 10/20/24 08:05
Physical Exam
Exam
General: Intubated
Respiratory: Clear (Anterior)
Cardiac: Regular Rhythm
GI: Soft, Non Distended and Other (Absent bowel sounds)
Musculoskeletal: No Edema
Neuro: Sedated
Results
WBC 17.7 10^3/uL (4.8-10.8) H 10/20/24 05:01
Hgb 15.2 g/dL (13.0-18.0) 10/20/24 05:01
Hct 42.8 % (39.0-52.0) 10/20/24 05:01
MCV 84.8 fL (80.0-94.0) 10/20/24 05:01
Plt Count 219 10^3/uL (130-400) 10/20/24 05:01
Absolute Neuts (auto) 12.7 10^3/uL (1.4-6.5) H 10/20/24 05:01
PT 15.1 Sec (11.4-14.6) H 10/20/24 05:01
INR 1.16 10/20/24 05:01
APTT 33.9 Sec (23.4-35.0) 10/20/24 05:01
Sodium 144 mmol/L (135-145) 10/20/24 05:01
Potassium 3.7 mmol/L (3.5-5.1) 10/20/24 05:01
Chloride 113 mmol/L (98-107) H 10/20/24 05:01
Carbon Dioxide 15 mmol/L (22-30) L 10/20/24 05:01
BUN 23 mg/dl (9-20) H 10/20/24 05:01
Creatinine 2.3 mg/dL (0.7-1.3) H 10/20/24 05:01
Calcium 9.1 mg/dl (8.4-10.2) 10/20/24 05:01
Total Bilirubin 1.8 mg/dl (0.2-1.3) H 10/20/24 05:01
AST 903 U/L (17-59) H* 10/20/24 05:01
ALT 926 U/L (0-50) H* 10/20/24 05:01
Alkaline Phosphatase 94 U/L (38-126) 10/20/24 05:01
Diagnostic Image Results:
Chest x-ray 10/20/2024:
IMPRESSION:
Bilateral opacities again seen which could represent atypical acute pulmonary edema.
No pneumothorax.
Chest x-ray 10/19/2024:
Progressive atelectasis versus pneumonia in the left perihilar distribution. Stable mild right upper lobe opacity.
Nasogastric tube in the stomach.
CT head 10/19/2024:
IMPRESSION:
No acute intracranial hemorrhage.
Findings suspicious for mild/early diffuse cerebral edema.
The examination was performed after-hours on an emergency basis, with initial preliminary interpretation provided by [facility]
Chest x-ray 10/19/2024:
FINDINGS/impression:
Intubated, endotracheal tube tip approximately 4 cm above the sahara.
The heart is top normal in size.
Mild vascular prominence. Mild to moderate interstitial and alveolar opacity in the mid and upper lung zones, right greater than left. Edema versus pneumonia.
Prior GI Procedures:
EGD: Never
Colonoscopy: Never
Assessment / Plan
-
49-year-old male with past medical history of hypertension, hyperlipidemia diabetes who does not follow with any physicians and does not believe in traditional medicine or taking any medications. Only drinks green tea in the morning. Not on any
supplements or lmae-xaj-hvsmfti medications. Complains of chest pain to his on the evening of 10/18/2024, refused to go to the hospital, went to bed. She awoke to hearing gurgling and patient was unresponsive, she started CPR. Incontinent of
urine. Found to be in cardiac arrest. EMS gave him 8 rounds of epinephrine, V. tach/V-fib arrest. Shocked 8 times. Intubated in field with an IO line in the right tibia. Patient went to the Curriculum Coach and was found to have 100% occluded proximal
RCA with [address] of the head shows diffuse cerebral edema. At this time patient remains on 2 pressors (vasopressin and Levophed). He is currently on EEG monitoring. Discussed with RN at bedside. No signs of GI bleeding. No GI
output. Hemoglobin stable. OG tube in place. Asked to evaluate for elevated LFTs. Total bilirubin 1.8, AST 903, ALT 926, alk phos 94, CK 3093, troponin 69.4, PT 15.1, INR 1.16 WBC 17.7, hemoglobin 15.2, platelets 219. Echo with hypokinesis
noted at the inferior and inferolateral and inferoseptal mohan with estimated LVEF 25 to 30%, in setting of ongoing sinus tachycardia.
Impression/Plan:
Cardiac arrest/ST elevated ID
V. tach/V-fib status post 8 round rounds of epi and shock (50 min)
100% proximal RCA occlusion status post 3 stents
Cardiogenic shock, currently on Levophed and vasopressin
Current echo EF 25 to 30%
--> Above as per internal medicine/cardiology/school bus monitor
Elevated LFTs, likely shock liver
--> Fractionate bilirubin
--> Check hepatitis panel
--> Can follow, discussed with , no prior illness like symptoms. No offending agents, toxins.
--> Can always obtain ultrasound of abdomen if with further concern
--> Platelet function and INR within normal limits.
-
-
Thank you for consultation and allowing me to participate in the patient's care. Please call the filtration plant operator GI physician during the after hours with any questions or concerns.
[2024-10-20 09:09] LABS: Glycohemoglobin (HgbA1c) 11.1 % (4.0-5.6)
[2024-10-20 09:10] LABS: B.E. -3.7 mmol/L; HCO3 18.5 mmol/L (21-28); O2 Saturation % 95.7 % (94-98); PCO2 26 mmHg (35-48); PO2 66 mmHg (83-108); pH 7.46 (7.35-7.45)
[2024-10-20 09:24] LABS: Lactic Acid 5.1 mmol/L (0.7-2.0)
--- NOTE | 2024-10-20 09:30 | PTCARENOTE ---
Left subclavian TLC placed by at bedside...confirmed w/ CXR. All tubings changed. EEG being done at bedside. IVF's, fentanyl, and diprivan gtts d/c'd @ 0800. Family updated.
[2024-10-20 10:14] LABS: Glucose - Point of Care 137 mg/dl (70-99)
--- NOTE | 2024-10-20 10:28 | W.CON.NEPH ---
Consultation
-
Date/Time Consultation Requested: October 20, 2024 at 8 AM
Date/Time Consultation Performed: October 20, 2024 at 9:30 AM
Requesting Provider: Dr. Leon
Performing Provider: Dr. Barahona
Reason for Consultation: Acute kidney injury
Medical History
-
Chief Complaint: Acute kidney injury
History of Present Illness:
49-year-old morbidly obese gentleman with past medical history of hypertension, hyperlipidemia, type 2 diabetes mellitus, obstructive sleep apnea, not on CPAP, not on any medications given patient does not believe in medications who is brought in by
EMS after being found to have VT VF cardiac arrest. Patient taken for emergent cardiac catheterization found to have significant disease with 100% occlusion of the RCA and decreased ejection fraction 25 to 30% and elevated chamber pressures.
Patient seen in the ICU intubated unable to obtain history. All history was obtained with discussion with ICU nurse.
Renal consult for acute kidney injury with a creatinine of 2.3 he is on 2 pressors.
He is nonoliguric but urine output diminishing over the last 12 hours.
Past Medical History
hypertension, hyperlipidemia, type 2 diabetes mellitus, obstructive sleep apnea, not on CPAP
Social History
Unobtainable
Family History
Family History: Not Pertinent
Allergies / Home Medications
Allergy/AdvReac Type Severity Reaction Status Date / Time
No Known Allergies Allergy Verified 10/19/24 13:14
�Medication �Instructions �Recorded �Confirmed �Type
No Meds [No Current Medications] 10/19/24 10/19/24 History
Review of Systems
-
Unable to obtain full review of systems at this time due to: Patient Intubation
Physical Exam
Vital Signs
Vital Signs
Temp Pulse Resp BP Pulse Ox
95.3 F L 95 22 80/63 98
10/20/24 10:00 10/20/24 10:15 10/20/24 10:15 10/20/24 10:00 10/20/24 10:15
Lab Results
WBC 17.7 10^3/uL (4.8-10.8) H 10/20/24 05:01
RBC 5.05 10^6/uL (4.70-6.10) 10/20/24 05:01
Hgb 15.2 g/dL (13.0-18.0) 10/20/24 05:01
Hct 42.8 % (39.0-52.0) 10/20/24 05:01
Plt Count 219 10^3/uL (130-400) 10/20/24 05:01
Sodium 144 mmol/L (135-145) 10/20/24 05:01
Potassium 3.7 mmol/L (3.5-5.1) 10/20/24 05:01
Chloride 113 mmol/L (98-107) H 10/20/24 05:01
Carbon Dioxide 15 mmol/L (22-30) L 10/20/24 05:01
BUN 23 mg/dl (9-20) H 10/20/24 05:01
Creatinine 2.3 mg/dL (0.7-1.3) H 10/20/24 05:01
eGFR 33.54 10/20/24 05:01
Glucose 138 mg/dl (70-99) H 10/20/24 05:01
Calcium 9.1 mg/dl (8.4-10.2) 10/20/24 05:01
Phosphorus 2.8 mg/dl (2.5-4.5) 10/20/24 00:17
Knp-T-Gifhynlmzot Pept 7270 pg/ml 10/19/24 14:08
Albumin 3.2 g/dl (3.5-5.0) L 10/20/24 05:01
Physical Exam
General no acute distress
HEENT no cephalic atraumatic
lungs coarse breath sounds
heart regular S1-S2 positive
abdomen soft nontender positive bowel sounds
extremities edema
Neurologically intubated
Skin no lesions no abrasions no petechiae
Data Reviewed
-
Radiology: Image Personally Visualized and interpreted (Moderate pulmonary edema bilateral)
Labs: Labs Reviewed by me and Discussed with Nurse
Assessment/Plan
-
49-year-old morbidly obese gentleman with past medical history of hypertension, hyperlipidemia, type 2 diabetes mellitus, obstructive sleep apnea, not on CPAP, not on any medications given patient does not believe in medications who is brought in by
EMS after being found to have VT VF cardiac arrest.
Impression.
Acute kidney injury secondary to cardiac arrest hemodynamic instability.
Status postcardiac arrest.
Coronary artery disease status post PCI.
Diabetes.
Hypertension.
Plan.
Maintain mean arterial pressure help with the renal perfusion patient is nonoliguric but decreasing urine output over the last 12 hours.
Currently on 2 pressors with systolic blood pressure 75 and MAP 60-65.
Suggested adding a third pressor at this time with lorenzo-.
Would hold diuretics for now see if urine output improves with better blood pressure.
Low threshold for redosing diuretics
Suggest high-dose diuretics 100 mg Lasix if urine output does not improve with improved blood pressure.
May need to consider inotropic support. Consider repeating echocardiogram in the next 48 hours
No acute need for dialysis at this time.
Possible anoxic brain injury as this would not make him a candidate for dialysis.
Total Time Spent with Patient (in minutes): 45
[2024-10-20 11:25] LABS: Direct Bilirubin 0.6 mg/dl (0.0-0.4)
[2024-10-20] MEDS: SOLU-CORTEF 50 MG IV ×3 (11:57→23:45)
--- NOTE | 2024-10-20 12:13 | W.PN.INTV ---
Today's Communication / Plan
Recommendations
-Replace potassium and magnesium
-Lasix 120 mg IV push stat, if no significant urine output, will need to consider renal replacement therapy
-Vent settings changed to 480/20/100%/PEEP of 8. Patient did not tolerate PEEP of 10.
-Serial ABG and electrolytes in the evening and then again tomorrow morning
-Continue goals of care discussions
Assessment
-
49-year-old male with a past medical history of hypertension, hypercholesterolemia and DM type II who presented with unresponsiveness. Per the , patient went to bed last night and prior to that he had chest discomfort. The asked if he
wanted to go to the ER then but he refused. He drank water with salt in it and then he felt better and then went to bed. Next morning at 5:30 AM, she found him unresponsive in bed. EMS called. Per the councilman he was in VT and V-fib. Cardiology
service was consulted. Initial EKG showed ST depressions in the inferior leads with lateral ST depressions. He was found to have a 100% occluded proximal RCA and 3 stents were placed. Patient remains intubated, was transferred to CVICU and
director cardiac services consulted for additional management/recommendations. Overnight he was moved to Medical ICU with rising pressor requirement.
Chronic conditions EXTERMINATOR TERMITE: Hypertension, hypercholesterolemia, DM type II
Last 24 hrs:
Significant positive volume balance, 5.5 L.
S/p coronary angioplasty with 3 stents placed in RCA
Worsening shock, currently on 3 pressors with Levophed at 30, vasopressin at 0.04 and Moustapha-Synephrine at 30
Hemoglobin stable at 15.2, white count mildly elevated at 17.7 and platelet of 219
INR 1.16 on 10/20
pH 7.46, pCO2 26, pO2 66 on 100% FiO with PEEP of 8. 480 ml/22
AST/ALT 903/926
Assessment and plan:
#1. S/p [id number] cardiac arrest with VF/VT, inferior wall ST elevation VA. Patient is s/p emergent coronary angioplasty s/p PCI of proximal RCA occlusion with 3 overlapping stents (10/19)
-Continue targeted temperature management per protocol, aim for normothermia.
-Avoid fever, Tylenol as needed
-Patient is off sedation and current currently not displaying any brainstem reflexes
-Await neurology evaluation, EEG
-CT scan suggestive of anoxic injury
-Continue dual antiplatelet therapy per cardiology service
-Continue Amiodarone infusion
-Cardiology, neurology service on case
-Poor prognosis
-Keep K above 4 and Mg above 2
#2. Shock, suspect cardiogenic along with vasoplegia in the setting of cardiac arrest
-Patient currently on 3 pressors, Levophed, vasopressin as well as Moustapha-Synephrine.
-Presentation less likely related to septic shock, empirically covering with IV ampicillin-sulbactam for suspected aspiration pneumonia
-Continue stress dose steroid with hydrocortisone Iv q6hrs
-Stopped sterile water with bicarb in view of improved pH and significant volume overload
#3. Acute kidney injury, oliguric.
-Patient appears to be volume overloaded and has significantly decreased urine output suspect related to acute kidney injury due to hypotension
-Trial of Lasix 120 mg IV stat considering x-ray showing increasing congestion and FiO2 requirement rising
-If suboptimal response, will need renal replacement therapy for volume removal
-Nephrology service on case
#4. Acute hypoxic respiratory failure with Acute HFrEF, EF 25-30%. Initially related to cardiac arrest however currently patient appears to be developing bilateral pulmonary edema with increasing supplemental O2 need.
-Currently on volume control, 480, 20, 100% FiO2 with a PEEP of 8. PEEP of 10 was tried but patient developed worsening MAP hence it was lowered back again to 8.
#5. Acute liver injury.
-This appears to be related to shock liver in the setting of hypotension
-Continue to monitor liver function test including coagulation profile
#6. Cerebral edema in the setting of cardiac arrest
-Target sodium 145-155, avoid hyponatremia
-Avoid hypotonic fluids
-Target pCO2 35-45
#7. DM
-Continue insulin infusion
DVT prophylaxis: Subcu heparin
GI prophylaxis: IV pantoprazole
Critical Care time 60 mins -- The patient is admitted for acute critical illness for the treatment of vital organ failure and/or prevention of further life-threatening conditions. Total care includes time spent in review of history, physical exam,
medications, hemodynamic/ventilator parameters, laboratory data, imaging and discussion with house staff, pharmacy, respiratory therapy, timber skidder, and nursing.
Data:
CT Head 10/19/2024: No acute intracranial hemorrhage; findings suspicious for mild/early diffuse cerebral edema
ECHO 10/2024: 1. Normal left nuclear chamber size with moderate to severely reduced LV systolic function. Hypokinesis noted of the inferior, inferolateral and
inferoseptal mohan with estimated left ventricular ejection fraction of 25 to 30% by visual assessment however this is somewhat limited in the setting of ongoing sinus tachycardia.
2. Normal RV size with mildly reduced RV systolic function.
3. No obvious valvular abnormalities.
4. No pericardial effusion.
5. Technically difficult study.
Subjective Dataa
Subjective Data
Date of Service:
Date of Service: October 20, 2024
Subjective:
Patient is intubated and mechanically ventilated, off all sedation.
Review of Systems
General: Unobtainable - Pat Unresp
Objective Data
Data Reviewed
Vital Signs / I&O / Oxygen:
Vital Signs
Temp Pulse Resp BP Pulse Ox
96.4 F L 95 22 80/63 97
10/20/24 11:00 10/20/24 10:15 10/20/24 10:15 10/20/24 10:00 10/20/24 11:32
Intake and Output
10/19/24 10/20/24 10/21/24
06:59 06:59 06:59
Intake Total 6252.0 / 6431.2 702.2 / 702.2
Output Total 2014 61 / 61
Balance 4237.0 / 4396.2 641.2 / 641.2
SaO2 [A/C] 92
SaO2 97
Physical Exam
General: Comfortable
HEENT: Normocephalic
Cardiovascular: S1-S2
Respiratory: Rhonchi
GI: Soft
Neurology: Unresponsive (No gag reflex or corneal reflex noted on exam.)
Labs/Micro/Reports
Lab Data
10/20/24 05:01
Laboratory Results
10/19/24 10/19/24 10/19/24
14:08 14:57 18:12
PT 14.9 H
INR 1.14
APTT 74.7 H
pH 7.35 7.35
pCO2 39 33 L
pO2 178 H 115 H
HCO3 21.5 18.2 L
O2 Delivery Level
10/20/24 10/20/24 10/20/24
00:17 05:01 05:03
PT 15.1 H
INR 1.16
APTT 33.9
pH 7.40 7.42
pCO2 26 L 27 L
pO2 79 L 148 H
HCO3 16.1 L 17.5 L
O2 Delivery Level per protocol Vent
10/20/24
08:58
PT
INR
APTT
pH 7.46 H
pCO2 26 L
pO2 66 L
HCO3 18.5 L
O2 Delivery Level
Microbiology
10/19/24 14:08 Urine Legionella Urinary Antigen - Final
Negative for Legionella pneumophila Serogroup 1 antigen.
A negative result does not rule out the possiblity of
Legionella infection due to other serogroups or species of
Legionella. Clinical correlation is recommended.
10/19/24 14:08 Urine Streptococcus pneumoniae Antigen (M - Final
Negative for Streptococcus pneumoniae antigen.
A negative result does not exclude infection with
Streptococcus pneumoniae. Clinical correlation is
recommended.
--- NOTE | 2024-10-20 12:15 | PTCARENOTE ---
Neurology at bedside and spoke at length w/ pt's about test results and answered all questions. No major changes in physical assessment. Labs sent. Will continue to monitor.
[2024-10-20 12:28] LABS: Glucose - Point of Care 83 mg/dl (70-99)
--- NOTE | 2024-10-20 12:29 | W.PN.NEURO.1 ---
Today's Communication / Plan
-
Supportive care as is appropriate
Neuro Assessment/Plan
Assessment
Patient has severe anoxic encephalopathy suggested by combination of severe cerebral edema and loss of sulci as well as EEG suggestive of essential cerebral silence.
Prognosis for meaningful neurological recovery instead of minimally conscious state is profoundly low especially in light of the patient's lack of improvement after initial cerebral injury
Plan
Supportive care as is appropriate
Repeat EEG if the patient has additional changes in symptomatology suggestive of seizure
At this time the family suggests that they may wish to withdraw care prior to 72 hours which is the standard duration delay to better determine if the patient will have a meaningful improvement of function
We will follow peripherally
Subjective/Objective
Subjective Data
Date of Service: October 20, 2024
Patient unable to provide his own medical history
Objective Data
Vital Signs
Temp Pulse Resp BP Pulse Ox
35.8 C L 95 22 80/63 97
10/20/24 11:00 10/20/24 10:15 10/20/24 10:15 10/20/24 10:00 10/20/24 11:32
Lab Results
10/20/24 05:01
PT 15.1 Sec (11.4-14.6) H 10/20/24 05:01
INR 1.16 10/20/24 05:01
APTT 33.9 Sec (23.4-35.0) 10/20/24 05:01
Sodium 144 mmol/L (135-145) 10/20/24 05:01
Potassium 3.7 mmol/L (3.5-5.1) 10/20/24 05:01
BUN 23 mg/dl (9-20) H 10/20/24 05:01
Glucose 138 mg/dl (70-99) H 10/20/24 05:01
Calcium 9.1 mg/dl (8.4-10.2) 10/20/24 05:01
Phosphorus 2.8 mg/dl (2.5-4.5) 10/20/24 00:17
Xgr-O-Lbcmcouyqox Pept 7270 pg/ml 10/19/24 14:08
LDL Cholesterol, Calc 96 mg/dl 10/20/24 05:01
Ur Buprenorphine Negative (Negative) 10/19/24 12:10
Patient Allergies
No Known Allergies Allergy (Verified 10/19/24 13:14)
Review of Systems
-
Unable to obtain full review of systems at this time due to: Other (Unresponsive)
History Source: Patient
All other systems: Reviewed and negative
Physical Exam
-
General: No Apparent Distress, Intubated and Appears Stated Age
Eyes: [place] Conjunctivae
HEENT: Anicteric and Moist Mucous Membranes
Neck: Full Range of Motion
Respiratory: No Dyspnea
Cardiac: No JVD
GI: Non-distended
Skin: Unremarkable
Extremities: No Clubbing, No Cyanosis and No Edema
Psych: Unable to Assess
Extended Neurological Exam
Mood & Affect: Unable to Assess
Attention Span & Concentration: Unresponsive to Verbal Stimuli and Unresponsive to Physical Stimuli; Negative Awake, Alert or Interactive
Memory: Unable to Assess
Involuntary Movement: None
Speech: Unable to Assess
Cranial Nerves III, IV, : Extraocular Movement: Unable to Assess (Ptosis)
Cranial Nerve V: Facial Sensation: Unable to Assess
Cranial Nerve VII: Facial Symmetry: Normal Facial Symmetry
Cranial Nerves IX, X: Palate Movement: Unable to Assess
Cranial Nerve XI: Shoulder Shrug: Unable to Assess
Cranial Nerve XII: Tongue Protusion: Unable to Assess
Muscle Strength, Overall: Negative Spontaneously Moves
Muscle Bulk & Tone: Bulk Unremarkable and Tone Unremarkable
Pronator Drift: Unable to Assess
Cold Sensation: Unable to Assess
Vibration Sensation: Unable to Assess
Coordination: Unable to Assess
Gait & Station: Unable to Assess
Data Reviewed
-
CT Head: Report Reviewed and Image Reviewed
Labs: Report Reviewed
Reviewed with: Physician, Nurse and Family
Old Records: Summarized
[2024-10-20 12:32] LABS: B.E. -5.7 mmol/L; HCO3 18.5 mmol/L (21-28); O2 Saturation % 93.6 % (94-98); PCO2 32 mmHg (35-48); PO2 72 mmHg (83-108); pH 7.37 (7.35-7.45)
[2024-10-20 12:40] LABS: % Basophils 0.3 % (0-2); % Immature Granulocytes 0.5 % (0-0.5); % Lymphocytes 14.2 % (20.5-51.1); % Monocytes 6.5 % (1.7-9.3); % Neutrophils 78.5 % (42.2-75.2); Absolute Basophils 0.1 10^3/uL (0-0.2); Absolute Immature Granulocytes 0.1 10^3/uL (0-0.05); Absolute Lymphocytes 2.6 10^3/uL (1.2-3.4); Absolute Monocytes 1.2 10^3/uL (0.1-0.6); Absolute Neutrophils 14.6 10^3/uL (1.4-6.5); Hematocrit 43.3 % (39.0-52.0); Hemoglobin 15.4 g/dL (13.0-18.0); Mean Corp Hgb Conc. 35.6 g/dL (33.0-37.0); Mean Corpuscular Hgb 30.5 pg (27.0-31.0); Mean Corpuscular Volume 85.7 fL (80.0-94.0); Mean Platelet Volume 10.6 fL (7.4-10.4); Nucleated Red Blood Cells % 0.3 % (-); Platelet Count 160 10^3/uL (130-400); Red Blood Cell Count 5.05 10^6/uL (4.70-6.10); Red Cell Dist. Width 13.5 % (11.5-14.5); White Blood Cell Count 18.7 10^3/uL (4.8-10.8)
[2024-10-20 12:45] LABS: Lactic Acid 4.9 mmol/L (0.7-2.0); Total CK 1526 U/L (55-170)
[2024-10-20 12:49] LABS: Magnesium 1.8 mg/dl (1.6-2.3); Phosphorus 4.1 mg/dl (2.5-4.5)
[2024-10-20] MEDS: LASIX 120 MG IV (12:50)
[2024-10-20 13:13] LABS: Glucose - Point of Care 92 mg/dl (70-99)
[2024-10-20] MEDS: MAGNESIUM SULFATE 50 IV (13:14)
[2024-10-20 13:27] LABS: CKMB 64.1 ng/ml (0.0-3.4)
[2024-10-20 14:16] LABS: Glucose - Point of Care 108 mg/dl (70-99)
[2024-10-20 15:05] LABS: Albumin 2.9 g/dl (3.5-5.0); Alkaline Phosphatase 95 U/L (38-126); Blood Urea Nitrogen 26 mg/dl (9-20); Calcium 8.9 mg/dl (8.4-10.2); Carbon Dioxide 17 mmol/L (22-30); Chloride 113 mmol/L (98-107); Estimated Creatinine Clearance 34 ml/min; Glucose 85 mg/dl (70-99); Potassium 4.4 mmol/L (3.5-5.1); Sodium 144 mmol/L (135-145); Total Protein 5.3 g/dl (6.3-8.2); eGFR 26.49
--- NOTE | 2024-10-20 15:10 | EEG.RPT ---
Electroencephalogram Report
Recording
Date of EE10/20/24
Type of EEG: Routine
Length of EEG recordin minutes
Done with Video Recording: Yes
Patient Status: Inpatient
Recording Conditions: Other (Unresponsive)
Hyperventilation Performed: No
Photic Stimulation Performed: Yes
Report
LESS THAN 1 HOUR ELECTROENCEPHALOGRAM (EEG) REPORT
EEG INTERPRETATION:
Severely abnormal EEG for age due to absence of a well defined cortical rhythm.
CLINICAL CORRELATION:
This study was consistent with minimal electrographic demonstration of cortical activity. No epileptiform features are defined.
Clinical correlation is advised.
METHODS:
A 21 channel digitized electroencephalogram (EEG) was performed at the bedside in the ICU. The 10/20 international system of electrode placement was used with ECG and lateral/vertical eye movements recorded. Video was recorded.
ELECTROENCEPHALOGRAPHER IMPRESSION(S):
Quality of study
Good
Background
There was no clear anterior-posterior voltage gradient.
The background activity was a very low amplitude delta seen on 1 occasion only.
There was no significant reactivity of the record with the exception of minimal muscle artifact noted.
Sleep
Not discernable
Hyperventilation
Not performed
Photic Stimulation
Failed to activate the record
ECG
Normal sinus rhythm
[2024-10-20 15:12] LABS: Glucose - Point of Care 110 mg/dl (70-99)
[2024-10-20 15:20] LABS: ALT (SGPT) 1878 U/L (0-50)
[2024-10-20 15:22] LABS: AST (SGOT) 2136 U/L (17-59)
--- NOTE | 2024-10-20 16:00 | PTCARENOTE ---
at bedside to further update and answer all questions. Pt remains intubated...sedation off since 0800. Pupils 5/fixed...no gag/corneal or cough. No purposeful movements. Remains on levophed, lorenzo, and vaso gtts...see interventions.
Off insulin gtt and following glycemic protocol recommendations...see intervention. UO diminished even after administration of lasix...MD's aware. Will begin rewarming @ 1615 per TTM machine. Safe environment confirmed. Family visiting
intermittently. Emotional support provided. Pastoral care aware. Prayer blanket provided earlier in day. Will continue to monitor closely.
--- NOTE | 2024-10-20 16:09 | CM ---
CM met with pt and spouse bedside
Pt in ICU, vent day #2
Pt resides with his spouse in a 2SH with 4STE
14 steps to 2nd floor
Pt is independent with his ADLs, no DMEs, drives+ and works FT out of the home for [employer]
PCP- Tevin Saleh
Rx- Leon Allison
Spouse lost her job and only on one income now
Occasional unpaid bills
Referred to [email or web address]
Of note, pt's mother from [place] and in ED currently likely for admission (Ariela Wallace)
Discharge Disposition- TBD
[2024-10-20 16:18] LABS: Glucose - Point of Care 115 mg/dl (70-99)
[2024-10-20 17:19] LABS: B.E. -7.7 mmol/L; HCO3 18.3 mmol/L (21-28); O2 Saturation % 91.3 % (94-98); PCO2 38 mmHg (35-48); PO2 65 mmHg (83-108); pH 7.29 (7.35-7.45)
[2024-10-20 17:24] LABS: % Basophils 0.2 % (0-2); % Immature Granulocytes 0.9 % (0-0.5); % Lymphocytes 12.6 % (20.5-51.1); % Monocytes 6.8 % (1.7-9.3); % Neutrophils 79.5 % (42.2-75.2); Absolute Immature Granulocytes 0.2 10^3/uL (0-0.05); Absolute Lymphocytes 2.5 10^3/uL (1.2-3.4); Absolute Monocytes 1.4 10^3/uL (0.1-0.6); Hematocrit 44.6 % (39.0-52.0); Hemoglobin 15.6 g/dL (13.0-18.0); Mean Corpuscular Hgb 30.3 pg (27.0-31.0); Mean Corpuscular Volume 86.6 fL (80.0-94.0); Mean Platelet Volume 10.5 fL (7.4-10.4); Nucleated Red Blood Cells % 0.5 % (-); Platelet Count 136 10^3/uL (130-400); Red Blood Cell Count 5.15 10^6/uL (4.70-6.10); Red Cell Dist. Width 13.8 % (11.5-14.5); White Blood Cell Count 20.1 10^3/uL (4.8-10.8)
[2024-10-20 17:34] LABS: Lactic Acid 6.3 mmol/L (0.7-2.0)
[2024-10-20 17:38] LABS: Albumin 3.1 g/dl (3.5-5.0); Alkaline Phosphatase 93 U/L (38-126); Blood Urea Nitrogen 27 mg/dl (9-20); Calcium 8.3 mg/dl (8.4-10.2); Carbon Dioxide 17 mmol/L (22-30); Chloride 110 mmol/L (98-107); Estimated Creatinine Clearance 31 ml/min; Glucose 125 mg/dl (70-99); Magnesium 2.6 mg/dl (1.6-2.3); Phosphorus 6.8 mg/dl (2.5-4.5); Potassium 6.9 mmol/L (3.5-5.1); Sodium 141 mmol/L (135-145); Total Bilirubin 2.5 mg/dl (0.2-1.3); Total Protein 5.4 g/dl (6.3-8.2); eGFR 23.44
[2024-10-20] MEDS: VENTOLIN NEBULES 10 MG INH (18:04)
[2024-10-20 18:06] LABS: Hepatitis B Surface Antigen Negative (Negative)
[2024-10-20 18:08] LABS: Hepatitis A IgM Antibody Negative (Negative); Hepatitis B Core Ab, IgM Negative (Negative)
[2024-10-20] MEDS: NOVOLIN R 5 UNITS IV (18:13)
[2024-10-20] MEDS: DEXTROSE 50% SYRINGE 25 GRAMS IV ×2 (18:16→21:34)
[2024-10-20] MEDS: CALCIUM GLUCONATE 1000 MG IV (18:17)
[2024-10-20 18:20] LABS: Glucose - Point of Care 110 mg/dl (70-99)
[2024-10-20 18:23] LABS: Hepatitis B Surface Antibody Positive; Hepatitis C Antibody Negative (Negative)
[2024-10-20 18:39] LABS: ALT (SGPT) 4302 U/L (0-50); AST (SGOT) 5154 U/L (17-59)
[2024-10-20 19:12] LABS: Glucose - Point of Care 198 mg/dl (70-99)
--- NOTE | 2024-10-20 20:00 | PTCARENOTE ---
Rec'd pt unresponsive to verbal or tactile stimuli, no protective reflexes, pupils 5mm, non reactive, support given to and family, all questions answered, SR ? ST, R rad kaylie w/ good wave form, flushes well, zeroed, accurate to cuff, to
maintain MAP > 65- see flow sheet for titrations,levo at 30 anna, lorenzo at 200mic, vasopressin at 0.04 units, amiodarone gtt at 0.5mg, weak distal pulses,+ edema, pt reached 97.7 goal - normothermia started for 48 hr, #7.5 oral ett- 23 cm moved to R
lip, ac 20, tv 480, increased to 10 peep , 100% fio2, sat 88-89&%, B Moe, SENIOR BIOSTATISTICIAN aware, lungs decr , no secretions, no bowel sounds, abd obese, round, R nares [place] to low inter suction draining brown liquid, irrigated q4h, griffith w/ scan cloud
yellow urine w/ sediment- B Moe, SENIOR BIOSTATISTICIAN aware
[2024-10-20] MEDS: NEO-SYNEPHRINE 1% 260 MG IV (20:07)
[2024-10-20 20:11] LABS: Glucose - Point of Care 122 mg/dl (70-99)
--- NOTE | 2024-10-20 21:00 | PTCARENOTE ---
B HUMPHREY Moe aware of bp, orders rec'd to titrate levo to max of 40
[2024-10-20 21:05] LABS: B.E. -8.5 mmol/L; HCO3 18.4 mmol/L (21-28); O2 Saturation % 83.6 % (94-98); PCO2 42 mmHg (35-48); pH 7.25 (7.35-7.45)
[2024-10-20 21:07] LABS: % Basophils 0.2 % (0-2); % Lymphocytes 7.9 % (20.5-51.1); % Monocytes 7.8 % (1.7-9.3); % Neutrophils 83.1 % (42.2-75.2); Absolute Immature Granulocytes 0.2 10^3/uL (0-0.05); Absolute Lymphocytes 1.6 10^3/uL (1.2-3.4); Absolute Monocytes 1.6 10^3/uL (0.1-0.6); Absolute Neutrophils 16.8 10^3/uL (1.4-6.5); Hematocrit 45.2 % (39.0-52.0); Hemoglobin 15.5 g/dL (13.0-18.0); Mean Corp Hgb Conc. 34.3 g/dL (33.0-37.0); Mean Corpuscular Volume 87.4 fL (80.0-94.0); Mean Platelet Volume 10.6 fL (7.4-10.4); Nucleated Red Blood Cells % 0.6 % (-); Platelet Count 125 10^3/uL (130-400); Red Blood Cell Count 5.17 10^6/uL (4.70-6.10); White Blood Cell Count 20.3 10^3/uL (4.8-10.8)
[2024-10-20 21:07] LABS: PO2 56 mmHg (83-108)
--- NOTE | 2024-10-20 21:15 | PTCARENOTE ---
glycemic protocal dc'd, accu checks checked per protocal post hyper kalemia tx
--- NOTE | 2024-10-20 21:15 | PTCARENOTE ---
Chace Cruz NP aware of abg results- ac incr to 24 by resp therapist at 2130
Chace cruz NP aware of chem result, orders rec'd
[2024-10-20 21:23] LABS: Lactic Acid 7.4 mmol/L (0.7-2.0)
[2024-10-20 21:26] LABS: Alkaline Phosphatase 90 U/L (38-126); Blood Urea Nitrogen 31 mg/dl (9-20); Calcium 8.3 mg/dl (8.4-10.2); Carbon Dioxide 17 mmol/L (22-30); Chloride 108 mmol/L (98-107); Estimated Creatinine Clearance 28 ml/min; Glucose 191 mg/dl (70-99); Magnesium 2.4 mg/dl (1.6-2.3); Phosphorus 7.9 mg/dl (2.5-4.5); Potassium 7.5 mmol/L (3.5-5.1); Sodium 141 mmol/L (135-145); Total Bilirubin 2.9 mg/dl (0.2-1.3); Total Protein 5.4 g/dl (6.3-8.2); eGFR 20.98
[2024-10-20] MEDS: NOVOLIN R 10 UNITS IV (21:34)
--- NOTE | 2024-10-20 21:40 | PTCARENOTE ---
10 units reg ins iv, 1 amp d50 IV & 1 amp sodium bicarb given as ordered
[2024-10-20 21:49] LABS: Glucose - Point of Care 147 mg/dl (70-99)
[2024-10-20 21:54] LABS: ALT (SGPT) 7117 U/L (0-50); AST (SGOT) > 7500 U/L (17-59)
--- NOTE | 2024-10-20 22:03 | W.PN.CARDCBS ---
Today's Communication / Plan
-
Recommendations:
1. Patient on multiple pressors with multiorgan failure, under TTM cooling protocol aimed at 36F until 4PM today with plan to slwoly rewarm then. Off all sedation with no neurologic activity noted so far. No UOP so trialing high dose lasix.
2. Uninterrupted dual antiplatelet therapy with daily baby aspirin and Brilinta 90 mg twice daily, high intensity statin via OGT. No BB or other cardiac meds other than amio currently as needing multiple pressors to maintain MAPs > 65
3. Echocardiogram reviewed by me: LVEF 25-30%.
4. Depending on response to high dose diuretics, to consider addition of inotropic agent in setting of severe LV dysfxn from ischemic cardiomyopathy post STEMI.
5. Wean pressors as tolerated.
6. Bank Clerk and neurology consults along with nephrology and GI appreicated.
7. EEG results reviewed. Ongoing family discussions with plan and family on board to reassess post 72hrs nubia. Overall as extensively discussed with family at bedside, prognosis unfortunately remains extremely guarded.
Erin Chou MD, LOCATED [facility]IN [facility]
Impression / Plan
-
No prior steam pan sponger or PCP
Impression:
Inferior ST elevation [place], due to 100% proximal RCA thrombotic occlusion, status post successful percutaneous coronary artery intervention of 100% thrombotic proximal RCA occlusion (ZEN 0 flow) post thrombectomy with 3 overlapping 2.75 x 26 mm, and
3.0 x 8 mm Medtronic [place] drug-eluting stents and a 3.0 x 15 mm Xience jerri point drug-eluting stent, postdilated using IVUS guidance with a 3.0 x 20 mm NC balloon at 18 ayan distally and a 3.25 x 15 mm NC balloon at 20 ayan proximally with an
excellent angiographic and IVUS based result.
VT/VF arrest, out of hospital with 8 shocks/ACLS, multiple rounds of CPR and Epi
Morbid obesity
Hypertension
Hyperlipidemia
Type 2 diabetes mellitus
Obstructive sleep apnea
Family history of premature coronary artery disease
Non-smoker
Not on any chronic medications
Right heart cath: RA (m) : 23
RV (s/d,m) : 48/22, 27
PA (s/d, m) : 47/35, 40
PCWP (m) : 29
PA saturation: 66.1% on 60% FiO2 via ventilator
AO saturation: 95.5% on 60% FiO2 via ventilator
RA saturation: 63.4% on 60% FiO2 via ventilator
Cardiac Output : 4.8 L/min
Cardiac Index : 2.28 L/min/m-2
Systemic vascular resistance: 1102 dsc^(-5)
Pulmonary vascular resistance: 2.88 nair unit
AO (s/d) : 119/80
LV (s/d) : 118/60
LVEDP : 23
Late note entry...patient/family were seen 3 times through out the day including around 10AM, 2-3PM and around 6PM...Total time spent is inclusive of all visits.
Recommendations:
1. Patient on multiple pressors with multiorgan failure, under TTM cooling protocol aimed at 36F until 4PM today with plan to slwoly rewarm then. Off all sedation with no neurologic activity noted so far. No UOP so trialing high dose lasix.
2. Uninterrupted dual antiplatelet therapy with daily baby aspirin and Brilinta 90 mg twice daily, high intensity statin via OGT. No BB or other cardiac meds other than amio currently as needing multiple pressors to maintain MAPs > 65
3. Echocardiogram reviewed by me: LVEF 25-30%.
4. Depending on response to high dose diuretics, to consider addition of inotropic agent in setting of severe LV dysfxn from ischemic cardiomyopathy post STEMI.
5. Wean pressors as tolerated.
6. Bank Clerk and neurology consults along with nephrology and GI appreicated.
7. EEG results reviewed. Ongoing family discussions with plan and family on board to reassess post 72hrs nubia. Overall as extensively discussed with family at bedside, prognosis unfortunately remains extremely guarded.
Erin Chou MD, [facility]
Progress Note - Customer Field Representative
Subjective
Date of Service: October 20, 2024
Continues on two pressors.
Objective
Labs:
10/20/24 20:51
10/20/24 20:51
Labs
Hgb 15.5 g/dL (13.0-18.0) 10/20/24 20:51
Hct 45.2 % (39.0-52.0) 10/20/24 20:51
Plt Count 125 10^3/uL (130-400) L 10/20/24 20:51
PT 15.1 Sec (11.4-14.6) H 10/20/24 05:01
INR 1.16 10/20/24 05:01
APTT 33.9 Sec (23.4-35.0) 10/20/24 05:01
Sodium 141 mmol/L (135-145) 10/20/24 20:51
Potassium 7.5 mmol/L (3.5-5.1) H* 10/20/24 20:51
BUN 31 mg/dl (9-20) H 10/20/24 20:51
Creatinine 3.4 mg/dL (0.7-1.3) H 10/20/24 20:51
Glucose 191 mg/dl (70-99) H 10/20/24 20:51
Troponins
10/19/24 10/19/24 10/19/24
06:39 12:03 17:15
Troponin I 1.520 H* 146.000 H* D Cancelled
10/19/24 10/20/24 10/20/24
18:13 00:17 12:20
Troponin I 136.000 H* 69.400 H* D 58.000 H*
Vital Signs and I&O:
Vital Signs
Temp Pulse Resp BP Pulse Ox
97.7 F 105 24 99/77 92
10/20/24 21:49 10/20/24 21:45 10/20/24 21:45 10/20/24 20:00 10/20/24 21:45
Vital Signs
Temp Pulse Resp BP Pulse Ox
97.7 F 105 24 99/77 92
10/20/24 21:49 10/20/24 21:45 10/20/24 21:45 10/20/24 20:00 10/20/24 21:45
Intake & Output
10/18/24 10/19/24 10/20/24 10/21/24
06:59 06:59 06:59 06:59
Intake Total 6252.0 / 6431.2 2199.5 / 2199.5
Output Total 2014 809 / 809
Balance 4237.0 / 4396.2 1390.5 / 1390.5
Physical Exam
Physical Exam
Intubated, Sedated, on multiple pressors,
LIJ line, R femoral venous sheath in place, Right radial art line in place,
OGT in place.
RR, normal S1 an S2.
Currently being cooled with TTM
No sig edema
--- NOTE | 2024-10-20 22:20 | PTCARENOTE ---
1 gm teresa Cloride over 1 hr givem, IVF w/ bicarb hung
[2024-10-20] MEDS: CALCIUM CHLORIDE 10% SYRINGE 60 MG IV (22:21)
[2024-10-20 22:56] LABS: Glucose - Point of Care 209 mg/dl (70-99)
[2024-10-20 23:53] LABS: Glucose - Point of Care 233 mg/dl (70-99)
--- NOTE | 2024-10-21 | PTCARENOTE ---
Sys reviewed, changes noted, CHG bath done, linens changed
[2024-10-21 00:42] LABS: B.E. -8.6 mmol/L; HCO3 17.4 mmol/L (21-28); O2 Saturation % 88.3 % (94-98); PCO2 37 mmHg (35-48); PO2 60 mmHg (83-108); pH 7.28 (7.35-7.45)
[2024-10-21 00:44] LABS: O2 Therapy 100%
[2024-10-21 00:48] LABS: % Basophils 0.2 % (0-2); % Monocytes 7.7 % (1.7-9.3); % Neutrophils 84.1 % (42.2-75.2); Absolute Immature Granulocytes 0.2 10^3/uL (0-0.05); Absolute Lymphocytes 1.4 10^3/uL (1.2-3.4); Absolute Monocytes 1.5 10^3/uL (0.1-0.6); Absolute Neutrophils 16.7 10^3/uL (1.4-6.5); Hematocrit 44.4 % (39.0-52.0); Hemoglobin 15.1 g/dL (13.0-18.0); Mean Corpuscular Volume 88.1 fL (80.0-94.0); Mean Platelet Volume 11.2 fL (7.4-10.4); Nucleated Red Blood Cells % 0.7 % (-); Platelet Count 116 10^3/uL (130-400); Red Blood Cell Count 5.04 10^6/uL (4.70-6.10); Red Cell Dist. Width 14.2 % (11.5-14.5); White Blood Cell Count 19.9 10^3/uL (4.8-10.8)
[2024-10-21 01:08] LABS: Lactic Acid 9.5 mmol/L (0.7-2.0)
[2024-10-21 01:14] LABS: Albumin 2.7 g/dl (3.5-5.0); Alkaline Phosphatase 87 U/L (38-126); Blood Urea Nitrogen 33 mg/dl (9-20); Calcium 8.9 mg/dl (8.4-10.2); Carbon Dioxide 16 mmol/L (22-30); Chloride 108 mmol/L (98-107); Estimated Creatinine Clearance 26 ml/min; Glucose 253 mg/dl (70-99); Magnesium 2.4 mg/dl (1.6-2.3); Phosphorus 7.9 mg/dl (2.5-4.5); Potassium 7.5 mmol/L (3.5-5.1); Sodium 139 mmol/L (135-145); Total Bilirubin 2.6 mg/dl (0.2-1.3); eGFR 18.96
--- NOTE | 2024-10-21 01:17 | PTCARENOTE ---
HUMPHREY Hammond aware of critical labs
[2024-10-21 01:34] LABS: Glucose - Point of Care 203 mg/dl (70-99)
--- NOTE | 2024-10-21 01:37 | PTCARENOTE ---
epi gtt resarted at 4 anna per order
[2024-10-21] MEDS: ADRENALIN 250 IV ×2 (01:39→04:51)
[2024-10-21] MEDS: NOVOLIN R 10 UNITS IV (01:40)
--- NOTE | 2024-10-21 01:40 | PTCARENOTE ---
Ins & D50 IV given for K, BP labile
0200- 3 gm Hal gluconate hung over 1 hr per order; wide complex tachycardia, B Abhi, CONDUCTOR/BRAKEMAN at bedside, amio gtt incr to 1mg, ekg done
amiodarone 150 bolus hung at 0225 per order
[2024-10-21] MEDS: DEXTROSE 50% SYRINGE 25 GRAMS IV (01:41)
[2024-10-21 01:45] VITALS: BP 86/59
[2024-10-21] MEDS: LEVOPHED 258 MG IV ×3 (01:47→09:11)
[2024-10-21] MEDS: CALCIUM GLUCONATE 130 MG IV (02:00)
[2024-10-21 02:17] LABS: ALT (SGPT) > 7500 U/L (0-50)
[2024-10-21] MEDS: CORDARONE 103 MG IV (02:24)
[2024-10-21 02:47] LABS: Glucose - Point of Care 307 mg/dl (70-99)
--- NOTE | 2024-10-21 03:09 | W.PN.UPDATE ---
Addendum entered and electronically signed by MICHAEL Seals 10/21/24 03:29:
0330 Spoke to family again. wants patient a limited DNR (No CPR). Still wants defibrillation if rhythm is warranted.
Original Note:
Update Note
Progress Note Update
2100 Potassium level 7.5. �D50/insulin, calcium chloride, and sodium bicarbonate drip given. �Discussed with renal, patient is not a candidate for dialysis. � updated over changes and wants patient to remain a full code despite poor prognosis.
�Dr. Martin also updated on situation.�
1:30 potassium still 7.5 �Redose D50/insulin, and calcium, maintain on sodium bicarbonate drip.�
2:15 Now having rhythm changes. Probably due to elevated potassium. Increase amiodarone drip back to 1 mg/hr and rebolus 150 mg of amiodarone for concern of VT. �Strips reviewed with cardiology.
--- NOTE | 2024-10-21 03:14 | PTCARENOTE ---
B HUMPHREY Moe aware of levo at 40, vaso at 0.04 units, epi at 10, lorenzo at 200, 1 amp sodium bicarb iv given
[2024-10-21] MEDS: SODIUM BICARBONATE 50 MEQ IV (03:15)
--- NOTE | 2024-10-21 03:30 | PTCARENOTE ---
spoke to and dtr about pt status- verbalized that they do not want pt to have CPR done, Chace Moe NP at bedside and changed the order to no CPR
[2024-10-21 03:45] LABS: Glucose - Point of Care 294 mg/dl (70-99)
[2024-10-21] MEDS: CORDARONE 518 MG IV (03:45)
[2024-10-21] MEDS: NEO-SYNEPHRINE 1% 260 MG IV (03:46)
[2024-10-21] MEDS: NOVOLOG FLEXPEN 4 UNITS SC (04:01)
--- NOTE | 2024-10-21 04:02 | PTCARENOTE ---
B HUMPHREY Moe aware of accu results, 4 units novolog ins sc given per order
[2024-10-21 04:10] LABS: AST (SGOT) > 7500 U/L (17-59)
--- NOTE | 2024-10-21 04:47 | PTCARENOTE ---
Converted to Sinus tach, bp 98/66, family remains at bedside
[2024-10-21 04:50] LABS: O2 Saturation % 92.8 % (94-98); PCO2 42 mmHg (35-48); PO2 78 mmHg (83-108)
[2024-10-21] MEDS: PITRESSIN 100 IV (04:51)
[2024-10-21 04:53] LABS: O2 Therapy 100%
[2024-10-21 04:54] LABS: HCO3 11.9 mmol/L (21-28); pH 7.06 (7.35-7.45)
[2024-10-21 04:57] LABS: % Basophils 0.2 % (0-2); % Immature Granulocytes 0.8 % (0-0.5); % Monocytes 6.7 % (1.7-9.3); % Neutrophils 85.3 % (42.2-75.2); Absolute Immature Granulocytes 0.2 10^3/uL (0-0.05); Absolute Lymphocytes 1.5 10^3/uL (1.2-3.4); Absolute Monocytes 1.5 10^3/uL (0.1-0.6); Absolute Neutrophils 18.9 10^3/uL (1.4-6.5); Hematocrit 43.7 % (39.0-52.0); Hemoglobin 14.4 g/dL (13.0-18.0); Mean Corpuscular Hgb 30.1 pg (27.0-31.0); Mean Corpuscular Volume 91.4 fL (80.0-94.0); Mean Platelet Volume 11.3 fL (7.4-10.4); Nucleated Red Blood Cells % 1.4 % (-); Platelet Count 112 10^3/uL (130-400); Red Blood Cell Count 4.78 10^6/uL (4.70-6.10); Red Cell Dist. Width 14.4 % (11.5-14.5); White Blood Cell Count 22.1 10^3/uL (4.8-10.8)
[2024-10-21 04:58] VITALS: BMI 37.9
[2024-10-21] MEDS: SOLU-CORTEF 50 MG IV ×2 (05:00→11:05)
[2024-10-21] MEDS: TYLENOL ORAL SOLUTION 650 MG TUBE ×2 (05:01→11:07)
--- NOTE | 2024-10-21 05:04 | PTCARENOTE ---
B HUMPHREY Moe aware of critical labs, ac incr to 28 by resp therapist per order
[2024-10-21 05:07] LABS: INR 2.34; PT 25.7 Sec (11.4-14.6)
[2024-10-21 05:08] LABS: APTT 37.8 Sec (23.4-35.0)
[2024-10-21] MEDS: UNASYN IV (05:19)
[2024-10-21 05:32] LABS: NT-proBNP 26000 pg/ml
[2024-10-21 05:39] LABS: Lactic Acid 16.9 mmol/L (0.7-2.0)
[2024-10-21 05:42] LABS: Albumin 2.7 g/dl (3.5-5.0); Alkaline Phosphatase 89 U/L (38-126); Blood Urea Nitrogen 34 mg/dl (9-20); Calcium 8.9 mg/dl (8.4-10.2); Carbon Dioxide 9 mmol/L (22-30); Chloride 106 mmol/L (98-107); Direct Bilirubin 1.6 mg/dl (0.0-0.4); Estimated Creatinine Clearance 22 ml/min; Glucose 312 mg/dl (70-99); Magnesium 2.6 mg/dl (1.6-2.3); Phosphorus 13.1 mg/dl (2.5-4.5); Potassium 5.8 mmol/L (3.5-5.1); Sodium 145 mmol/L (135-145); Total Bilirubin 2.7 mg/dl (0.2-1.3); Total Protein 4.9 g/dl (6.3-8.2)
--- NOTE | 2024-10-21 05:46 | PTCARENOTE ---
Chace Moe NP aware of critial lab results
[2024-10-21 05:48] LABS: Glucose - Point of Care 295 mg/dl (70-99)
[2024-10-21 05:50] LABS: ALT (SGPT) 7498 U/L (0-50); AST (SGOT) > 7500 U/L (17-59)
--- NOTE | 2024-10-21 07:45 | PTCARENOTE ---
Assumed care of patient. Pt rec'd intubated on ventilator. Rewarmed @ 10/21 1999...to maintain normotheric x 48hrs. Pupils 5/fixed. Unresponsive to all stimuli. S1 S2 reg w/ ST on monitor. Weak +PP. +1-2 generalized edema w/ +3 scleral edema.
Heels elevated on pillows. #7.5 ETT 23cm right lip...current vent settings: 28/480/+10/100%...sats 85-91%. Lungs diminished throughout. Abdomen obese...no BS. Right nare [place] (65cm) -> LIWS. Draining liquid brown. Temp sensing griffith draining
scant cloudy dark yellow urine w/ sediment. Skin warm and dry. Chest w/ multiple abrasions from CPR. Right femoral sheath w/ amiodarone infusing. Dressing changed on nightclub manager. Right radial kaylie..flushed and zeroed...correlates w/ manual BP.
Multiple INT's and right IO....IVF's, levophed, vaso, lorenzo, epi gtts...see interventions. VS documented. Family at bedside and updated. Emotional support provided. Will continue to monitor closely.
--- NOTE | 2024-10-21 07:47 | W.PN.HOSP.TC ---
Addendum entered and electronically signed by Nathaly Leon MD 10/22/24 12:14:
# Hypokalemia, then Hyperkalemia
Addendum entered and electronically signed by Nathaly Leon MD 10/21/24 14:28:
total time 60 min
Original Note:
Today's Communication/Plan
-
see A/P
Assessment / Plan
Assessment / Plan
HPI: 49 yo M, PMH HTN, HLD, DM, not on medication due to non-compliance, who p/w cardiac arrest s/p ROSC. He apparently was complaining of chest pain the night before but went to bed at 11 pm. He was found unresponsive in the morning by his at
5:30 am. According to his , she called EMS immediately.
Per ED, he was noted to be in in VT and VF by [facility] head of [facility] [employer].
Upon arrival to the ER, he went straight to the [facility] for suspected STEMI.
A/P:
# Cardiac arrest/STEMI
# Ventricular arrhythmia with VT and VF
# Cardiogenic shock
per card, cath showed 100% proximal RCA occlusion, s/p 3 stents placement.
Continue aspirin/Brilinta per card.
IV amiodarone per card
Toprol on hold in shock state
Cont pressors support, Levophed and vasopressin, added back Epi and Moustapha
Started Stress dose steroid
Echo noted 25 to 30%
Targeted temperature management to keep at 35-36 �C and avoid fever per [facility].
Cardiology on board
[facility] on board
# Acute hypoxic respiratory failure
Now vent dep respiratory failure
Vent per [facility]
# Likely anoxic brain injury
CT head noted mild/early diffuse cerebral edema.
Despite off sedation, pt does not have meaningful neurologic function
EEG showed minimal electrographic demonstration of cortical activity.
# Anion gap Metabolic acidosis
# Lactic acidosis
Suspect related to cardiac arrest
Follow lactic acid level, now worsened to 16.9
Bicarb drip per renal
# End organ damages with RUBÉN and shock liver
SCr 1.0 -> 4.4
AST ALT > 7500
Renal on board
GI on board
# Hyperkalemia
treated
# SIRS suspect 2/2 cardiac arrest
Follow blood cultures
Cont empiric Unasyn
# DM
A1C 11%
Insulin drip
Accu-Chek
DVT ppx: HSQ
Code: wants patient a limited DNR (No CPR). Still wants defibrillation if rhythm is warranted.
d/w RN
d/w , daughter in person extensively.
CC time 50 min
Anticipated Discharge: 24 - 48 hours
Subjective/Interval History
-
Date of Service: October 21, 2024
Objective Data
-
Labs:
Laboratory Results
10/20/24 10/20/24 10/21/24
20:51 20:58 00:35
WBC 20.3 H 19.9 H
Hgb 15.5 15.1
Hct 45.2 44.4
Plt Count 125 L 116 L
PT
INR
APTT
HCO3 18.4 L 17.4 L
Sodium 141 139
Potassium 7.5 H* 7.5 H*
Chloride 108 H 108 H
Carbon Dioxide 17 L 16 L
BUN 31 H 33 H
Creatinine 3.4 H 3.7 H
Glucose 191 H 253 H
Calcium 8.3 L 8.9
Total Bilirubin 2.9 H 2.6 H
AST > 7500 H* > 7500 H*
ALT 7117 H* > 7500 H*
Alkaline Phosphatase 90 87
10/21/24 10/21/24 10/21/24
04:41 05:00 09:00
WBC 22.1 H Cancelled Pending
Hgb 14.4 Cancelled Pending
Hct 43.7 Cancelled Pending
Plt Count 112 L Cancelled Pending
PT 25.7 H
INR 2.34
APTT 37.8 H
HCO3 11.9 L*
Sodium 145 Cancelled Pending
Potassium 5.8 H Cancelled Pending
Chloride 106 Cancelled Pending
Carbon Dioxide 9 L* Cancelled Pending
BUN 34 H Cancelled Pending
Creatinine 4.4 H* Cancelled Pending
Glucose 312 H Cancelled Pending
Calcium 8.9 Cancelled Pending
Total Bilirubin 2.7 H Cancelled Pending
AST > 7500 H* Cancelled Pending
ALT 7498 H* Cancelled Pending
Alkaline Phosphatase 89 Cancelled Pending
10/21/24
13:00
WBC Pending
Hgb Pending
Hct Pending
Plt Count Pending
PT
INR
APTT
HCO3
Sodium Pending
Potassium Pending
Chloride Pending
Carbon Dioxide Pending
BUN Pending
Creatinine Pending
Glucose Pending
Calcium Pending
Total Bilirubin Pending
AST Pending
ALT Pending
Alkaline Phosphatase Pending
Vital Signs:
Vital Signs
Temp Pulse Resp BP Pulse Ox
36.6 C 107 28 86/59 92
10/21/24 07:00 10/21/24 06:40 10/21/24 06:40 10/21/24 01:45 10/21/24 06:40
I&O
10/20/24 10/21/24 10/22/24
06:59 06:59 06:59
Intake Total 6252.0 / 6431.2 4546.2 / 4814.0 267.8 / 267.8
Output Total 2014 1000 / 1014
Balance 4237.0 / 4396.2 3546.2 / 3800.0 253.8 / 253.8
Review of Systems
-
Unable to obtain full review of systems at this time due to: Acuity
Physical Exam
-
General: Well Developed, Well Nourished, Respiratory Distress and Obese
HEENT: Normocephalic, Atraumatic, Nose Appears Normal, Ears Appear Normal and Oxygen (on vent)
Respiratory: Non Labored Respirations; Negative Accessory Resp Muscle Use
Cardiac: Regular Rhythm and S1/S2
GI: Soft, Nontender, Nondistended and Normal Bowel Sounds
Neuro: Negative Awake or Sedated
Data Reviewed
-
CT Scan: Report Reviewed by me and Discussed with Family
Labs: Labs Reviewed by me
[2024-10-21] MEDS: PROTONIX IV 40 MG IV (07:52)
[2024-10-21] MEDS: NSS (PRESERVATIVE FREE) 10 ML IV (07:52)
[2024-10-21] MEDS: HEPARIN 5000 UNITS SC (07:53)
[2024-10-21] MEDS: REFRESH CELLUVISC GEL 1 DROPS OPHTH (07:54)
[2024-10-21] MEDS: BRILINTA 90 MG PO (07:55)
[2024-10-21] MEDS: LOW STRENGTH ASPIRIN 81 MG PO (07:55)
[2024-10-21] MEDS: BUSPAR 30 MG TUBE (07:55)
[2024-10-21] MEDS: MIRALAX 17 GRAMS TUBE (07:56)
[2024-10-21 07:59] LABS: Glucose - Point of Care 339 mg/dl (70-99)
[2024-10-21 08:03] LABS: Prealbumin (Transthyretin) 14.4 mg/dl (17.6-36.0)
[2024-10-21 08:31] LABS: % Basophils 0.2 % (0-2); % Lymphocytes 5.2 % (20.5-51.1); % Monocytes 6.9 % (1.7-9.3); % Neutrophils 86.7 % (42.2-75.2); Absolute Immature Granulocytes 0.2 10^3/uL (0-0.05); Absolute Lymphocytes 1.1 10^3/uL (1.2-3.4); Absolute Monocytes 1.4 10^3/uL (0.1-0.6); Absolute Neutrophils 17.5 10^3/uL (1.4-6.5); Hematocrit 42.8 % (39.0-52.0); Hemoglobin 14.4 g/dL (13.0-18.0); Mean Corp Hgb Conc. 33.6 g/dL (33.0-37.0); Mean Corpuscular Hgb 30.9 pg (27.0-31.0); Mean Corpuscular Volume 91.8 fL (80.0-94.0); Mean Platelet Volume 11.8 fL (7.4-10.4); Nucleated Red Blood Cells % 1.3 % (-); Platelet Count 117 10^3/uL (130-400); Red Blood Cell Count 4.66 10^6/uL (4.70-6.10); Red Cell Dist. Width 14.7 % (11.5-14.5); White Blood Cell Count 20.2 10^3/uL (4.8-10.8)
--- NOTE | 2024-10-21 08:52 | PN.CDI ---
CDI
- -
CDI:
Physician Documentation Request
Admit Date: 10/19/24 10:59
Dear Doctor Carolyn,
Patient admitted with STEMI.
Laboratory Tests
10/19/24 10/19/24 10/20/24
06:39 18:13 00:17
Potassium 3.1 L 3.3 L 3.0 L
10/19: Potassium chloride 80 meq IV administered
10/20: Potassium chloride 80 tube administered, 40 meq IV administered
Based on the above, could you clarify in the progress notes, the appropriate diagnosis, if significant, that supports the above abnormalities and additional evaluation, monitoring and/or treatment rendered:
Hypokalemia
Abnormal lab value insignificant
Other
Use of terms such as suspected, likely, concern for, or probable (associated with a specific diagnosis that is being evaluated, monitored, or treated as if it exists) are acceptable and can be coded in the inpatient setting, when documented at the
time of discharge.
Thank you,
Lori Guaman RN, BSN
CDI Specialist
Available via [facility] text
Please use your independent medical judgment in providing your response.
[2024-10-21 09:04] LABS: Lactic Acid 16.1 mmol/L (0.7-2.0)
--- NOTE | 2024-10-21 09:16 | PN.DE.MGMTRT ---
Insulin Management
- -
10/21/2024: Diabetes Management Consult Follow up
49 year old male with PMH; HTN, HLD, DM, not on medication due to non-compliance, who p/w cardiac arrest s/p ROSC. He apparently was complaining of chest pain the night before but went to bed at 11 pm. He was found unresponsive in the morning by his
at 5:30 am. AC 11.1%, Cr 2.3, eGFR 33.54
Patient is critically ill intubated.
Currently Critical Care glycemia protocol has been turned off 10 units regular insulin given SQ multiple times, glucose 295 to 312. Currently Glucose > 300
Discussed with Nurse and ICU Rounding team, patient for possible comfort care. If not insulin infusion to resume
Diabetes History
- -
Type of Diabetes: 2
Pre-Admission Diabetes Regimen
10/20/24 10/20/24 10/20/24
12:20 17:10 17:10
Creatinine 2.8 H 3.1 H Cancelled
10/20/24 10/21/24 10/21/24
20:51 00:35 04:41
Creatinine 3.4 H 3.7 H 4.4 H*
10/21/24
05:00
Creatinine Cancelled
Lab Results
Hemoglobin A1c 11.1 % (4.0-5.6) H 10/19/24 12:03
Insulin Pump Settings
IP Diabetes Regimen
10/20/24 10/20/24 10/20/24
10:03 12:17 12:20
Glucose 85
POC Glucose 137 H 83
10/20/24 10/20/24 10/20/24
13:02 14:04 14:59
Glucose
POC Glucose 92 108 H 110 H
10/20/24 10/20/24 10/20/24
16:06 17:10 17:10
Glucose 125 H Cancelled
POC Glucose 115 H
10/20/24 10/20/24 10/20/24
18:07 19:00 19:59
Glucose
POC Glucose 110 H 198 H 122 H
10/20/24 10/20/24 10/20/24
20:51 21:36 22:45
Glucose 191 H
POC Glucose 147 H 209 H
10/20/24 10/21/24 10/21/24
23:42 00:35 01:23
Glucose 253 H
POC Glucose 233 H 203 H
10/21/24 10/21/24 10/21/24
02:36 03:34 04:41
Glucose 312 H
POC Glucose 307 H 294 H
10/21/24 10/21/24 10/21/24
05:00 05:37 07:47
Glucose Cancelled
POC Glucose 295 H 339 H
Patient Education
[2024-10-21 09:27] LABS: Blood Urea Nitrogen - POC 20 mg/dl (3-120); Chloride - POC 107 mmol/L (96-111); Creatinine - POC 1.93 mg/dl (0.3-1.0); Glucose - POC 628 mg/dl (70-99); HCO3 - POC 26 mmol/L (21-28); Hematocrit - POC 47 % PCV (42-52); Hemodilution- POC No; Hemoglobin Calculated - POC 15.8; Ionized Calcium - POC 1.38 mmol/L (1.15-1.33); Lactate - POC 7.06 mmol/L (0.36-0.75); O2 Saturation %Calculated-POC 99.4 % (94-98); PCO2 - POC 53 mmHg (35-48); PO2 - POC 176 mmHg (83-108); Potassium - POC 3.8 mmol/L (3.5-5.1); Sodium - POC 145 mmol/L (136-145); Specimen Type - POC Arterial
--- NOTE | 2024-10-21 09:30 | PTCARENOTE ---
Struggling to obtain accurate pleth. Slowly increasing pressors to maintain MAP > 65.
[2024-10-21 09:44] LABS: B.E. - POC -0.9 mmol/L; Blood Urea Nitrogen - POC 18 mg/dl (3-120); Chloride - POC 109 mmol/L (96-111); Creatinine - POC 1.95 mg/dl (0.3-1.0); Glucose - POC 487 mg/dl (70-99); HCO3 - POC 26 mmol/L (21-28); Hematocrit - POC 44 % PCV (42-52); Hemodilution- POC No; Ionized Calcium - POC 1.29 mmol/L (1.15-1.33); Lactate - POC 6.55 mmol/L (0.36-0.75); O2 Saturation %Calculated-POC 98.7 % (94-98); PCO2 - POC 50 mmHg (35-48); PO2 - POC 132 mmHg (83-108); Potassium - POC 3.1 mmol/L (3.5-5.1); Sodium - POC 148 mmol/L (136-145); Specimen Type - POC Arterial; pH - POC 7.32 (7.35-7.45)
[2024-10-21 09:47] LABS: Albumin 2.7 g/dl (3.5-5.0); Alkaline Phosphatase 98 U/L (38-126); Blood Urea Nitrogen 37 mg/dl (9-20); Calcium 8.4 mg/dl (8.4-10.2); Carbon Dioxide 7 mmol/L (22-30); Chloride 105 mmol/L (98-107); Estimated Creatinine Clearance 21 ml/min; Glucose 356 mg/dl (70-99); Magnesium 2.4 mg/dl (1.6-2.3); Phosphorus 12.4 mg/dl (2.5-4.5); Potassium 6.5 mmol/L (3.5-5.1); Sodium 143 mmol/L (135-145); Total Bilirubin 2.6 mg/dl (0.2-1.3); Total Protein 4.8 g/dl (6.3-8.2)
[2024-10-21 10:09] LABS: ALT (SGPT) > 7500 U/L (0-50); AST (SGOT) > 7500 U/L (17-59)
--- NOTE | 2024-10-21 10:45 | W.PN.NEPH.PH ---
Today's Communication / Plan
-
Comfort care strongly suggest. Not a dialysis candidate with any type of modality
Assessment/Plan
-
49-year-old morbidly obese gentleman with past medical history of hypertension, hyperlipidemia, type 2 diabetes mellitus, obstructive sleep apnea, not on CPAP, not on any medications given patient does not believe in medications who is brought in by
EMS after being found to have VT VF cardiac arrest.
Impression.
Acute kidney injury secondary to cardiac arrest hemodynamic instability.
Status postcardiac arrest.
Coronary artery disease status post PCI.
Diabetes.
Hypertension.
Plan.
Worsening clinical status on max pressor support worsening renal function hyperkalemia metabolic acidosis.
I had a long discussion with his at the bedside as any further care is futile certainly not a dialysis candidate with increasing pressor requirements anoxic brain injury lactic acidosis most recent lactate level of 16.
Will defer to ICU team to address formal withdrawal of care as family does seem to understand the prognosis
Total Time Spent with Patient (in minutes): 35
-
-
Date of Service: October 21, 2024
CC / HPI / ROS
-
Chief Complaint:
Cardiac arrest
History of Present Illness:
Shock progressively worsening on maximum pressor support
Review of Systems:
Unobtainable
Labs
-
Labs:
eGFR 14.60 10/21/24 08:19
Qvh-B-Auoucimalgp Pept 88830 pg/ml 10/21/24 04:41
Physical Exam
-
Vital Signs:
Vital Signs
Temp Pulse Resp BP Pulse Ox
98.9 F 107 28 86/59 89
10/21/24 10:00 10/21/24 10:10 10/21/24 10:10 10/21/24 01:45 10/21/24 09:50
Respiratory:: Bilateral: Rales and Bilateral: Rhonchi
Lung Excursion:: Abnormal
Bowel Sounds:: Decreased
Extremity Edema:: +2: Bilateral:
Kc Catheter: Yes
--- NOTE | 2024-10-21 11:00 | PTCARENOTE ---
Bedside rounds completed. Will restart insulin gtt w/ bolus per .
[2024-10-21 11:14] LABS: Glucose - Point of Care 365 mg/dl (70-99)
[2024-10-21] MEDS: NOVOLIN R 8 UNITS IV (11:34)
[2024-10-21] MEDS: NOVOLIN R INSULIN INFUSION 100 IV (11:36)
--- NOTE | 2024-10-21 11:42 | W.PN.NEURO.1 ---
Today's Communication / Plan
-
At this time the family suggests that they may wish to withdraw care prior to 72 hours which is the standard duration delay to better determine if the patient will have a meaningful improvement of function
Neuro Assessment/Plan
Assessment
Patient has severe anoxic encephalopathy suggested by combination of severe cerebral edema and loss of sulci as well as EEG suggestive of essentially cerebral silence.
Prognosis for meaningful neurological recovery instead of eventual minimally conscious state is profoundly low especially in light of the patient's lack of improvement after initial cerebral injury across the last 24 hours
Plan
Supportive care as is appropriate
Repeat EEG if the patient has additional changes in symptomatology suggestive of seizure
At this time the family suggests that they may wish to withdraw care prior to 72 hours which is the standard duration delay to better determine if the patient will have a meaningful improvement of function
We will follow peripherally
Subjective/Objective
Subjective Data
Date of Service: October 21, 2024
Patient unable provide his own medical history
Objective Data
Vital Signs
Temp Pulse Resp BP Pulse Ox
36.6 C 107 28 86/59 93
10/21/24 11:16 10/21/24 10:10 10/21/24 10:10 10/21/24 01:45 10/21/24 11:05
PT 25.7 Sec (11.4-14.6) H 10/21/24 04:41
INR 2.34 10/21/24 04:41
APTT 37.8 Sec (23.4-35.0) H 10/21/24 04:41
Sodium 143 mmol/L (135-145) 10/21/24 08:19
Potassium 6.5 mmol/L (3.5-5.1) H* 10/21/24 08:19
BUN 37 mg/dl (9-20) H 10/21/24 08:19
Glucose 356 mg/dl (70-99) H 10/21/24 08:19
Calcium 8.4 mg/dl (8.4-10.2) 10/21/24 08:19
Phosphorus 12.4 mg/dl (2.5-4.5) H 10/21/24 08:19
Zpy-E-Vgbnsgycjus Pept 93455 pg/ml 10/21/24 04:41
LDL Cholesterol, Calc 96 mg/dl 10/20/24 05:01
Ur Buprenorphine Negative (Negative) 10/19/24 12:10
Patient Allergies
No Known Allergies Allergy (Verified 10/19/24 13:14)
Review of Systems
-
Unable to obtain full review of systems at this time due to: Other (Unresponsive)
History Source: Patient
All other systems: Reviewed and negative
Physical Exam
-
General: No Apparent Distress, Intubated and Appears Stated Age
Eyes: Leroy Conjunctivae
HEENT: Anicteric and Moist Mucous Membranes
Neck: Full Range of Motion
Respiratory: No Dyspnea
Cardiac: No JVD
GI: Non-distended
Skin: Unremarkable
Extremities: No Clubbing, No Cyanosis and No Edema
Psych: Unable to Assess
Extended Neurological Exam
Mood & Affect: Unable to Assess
Attention Span & Concentration: Unresponsive to Verbal Stimuli and Unresponsive to Physical Stimuli; Negative Awake, Alert or Interactive
Memory: Unable to Assess
Tremor: Hand Tremor Absent and Head Tremor Absent
Involuntary Movement: None
Speech: Unable to Assess
Cranial Nerve II: Left Eye: Pupillary Size Unremarkable and Unable to Assess Visual Cardenas; Negative Pupillary Reactivity Unremarkable
Cranial Nerve II: Right Eye: Pupillary Size Unremarkable and Unable to Assess Visual Cardenas; Negative Pupillary Reactivity Unremarkable
Cranial Nerves III, IV, : Extraocular Movement: Absent Doll's Eyes
Cranial Nerve V: Facial Sensation: Unable to Assess
Cranial Nerve VII: Facial Symmetry: Normal Facial Symmetry
Cranial Nerves IX, X: Palate Movement: Unable to Assess
Cranial Nerve XI: Shoulder Shrug: Unable to Assess
Cranial Nerve XII: Tongue Protusion: Unable to Assess
Muscle Strength, Overall: Negative Spontaneously Moves
Muscle Bulk & Tone: Bulk Unremarkable and Tone Unremarkable
Pronator Drift: Unable to Assess
Cold Sensation: Unable to Assess
Vibration Sensation: Unable to Assess
Coordination: Unable to Assess
Gait & Station: Unable to Assess
Data Reviewed
-
Labs: Report Reviewed
Reviewed with: Physician and Patient
Old Records: Summarized
Past History
Past History
ED Past Medical History: HTN, NIDDM and Other (Cardiac arrest)
Social History
Personal:
Living: with family
Family History
Family History: Other (Reviewed and noncontributory)
Medications
-
Medications:
Generic Name Dose Route Start Last Admin
Trade Name Freq PRN Reason Stop Dose Admin
Acetaminophen 650 mg 10/19/24 18:00 10/21/24 11:07
Acetaminophen (Oral Solution) 650 Mg/20.3 Ml Cup TUBE 10/23/24 17:59 650 mg
Q6 APRIL Administration
Acetaminophen 650 mg 10/19/24 13:10
Acetaminophen 650 Mg Rectal Suppository RECTAL 10/23/24 13:09
Q8HPRN PRN
if cannot be given via tube
Aspirin 81 mg 10/20/24 08:00 10/21/24 07:55
Aspirin 81 Mg Chewable Tablet PO 11/17/24 07:59 81 mg
DAILY APRIL Administration
Bisacodyl 10 mg 10/19/24 10:48
Bisacodyl 10 Mg Rectal Suppository RECTAL 11/16/24 10:47
[id number] PRN
constipation
Buspirone HCl 30 mg 10/20/24 00:00 10/21/24 07:55
Buspirone 15 Mg Tablet TUBE 11/17/24 00:00 30 mg
Q8 APRIL Administration
Carboxymethylcellulose Sodium 1 drops 10/19/24 20:00 10/21/24 07:54
Carboxymethylcellulose Ophth Gel (Celluvisc) Droperette OPHTH 11/16/24 19:59 1 drops
BID APRIL Administration
Dextrose 12.5 grams 10/21/24 11:18
Dextrose 50% (0.5 Grams/Ml) 50 Ml Syringe IV 11/18/24 11:17
[id number] PRN
Blood Glucose < 70
Fentanyl Citrate 50 mcg 10/19/24 13:10
Fentanyl (50 Mcg/Ml) 100 Mcg/2 Ml Ampul IV 11/02/24 13:09
[id number] PRN
see protocol
Protocol
Heparin Sodium 5,000 units 10/19/24 16:00 10/21/24 07:53
Heparin 5,000 Units/Ml 1 Ml Vial SC 11/16/24 15:59 5,000 units
Q8 APRIL Administration
Hydrocortisone Sodium Succinate 50 mg 10/20/24 12:00 10/21/24 11:05
Hydrocortisone Sodium Succinate 100 Mg/2 Ml Vial IV 11/17/24 11:59 50 mg
Q6 APRIL Administration
Amiodarone HCl 900 mg/ 518 mls @ 0 mls/hr 10/19/24 11:15 10/21/24 03:45
Dextrose/Water IV 518 mls
PER PROTOCOL APRIL Administration
Protocol
Per Protocol
Norepinephrine Bitartrate 8 mg 258 mls @ 0 mls/hr 10/19/24 13:30 10/21/24 09:11
/ Sodium Chloride IV 258 mls
PER PROTOCOL APRIL Administration
Protocol
Per Protocol
Vasopressin 20 units in 100 mls @ 0 mls/hr 10/19/24 20:45 10/21/24 04:51
Pitressin IV 100 mls
PER PROTOCOL APRIL Administration
Protocol
Per Protocol
Phenylephrine HCl 100 mg/ 260 mls @ 0 mls/hr 10/19/24 20:45 10/21/24 03:46
Sodium Chloride IV 260 mls
PER PROTOCOL APRIL Administration
Protocol
Per Protocol
Ampicillin Sodium/Sulbactam 120 mls @ 240 mls/hr 10/21/24 06:00 10/21/24 05:19
Sodium 3 gm/ Sodium Chloride IV 120 mls
Q12H APRIL Administration
Sodium Bicarbonate 150 meq/ 1,150 mls @ 80 mls/hr 10/20/24 21:45 10/20/24 22:22
Sterile Water IV 1,150 mls
.[id number] APRIL Administration
Epinephrine HCl 4 mg in 250 mls @ 0 mls/hr 10/21/24 01:45 10/21/24 04:51
Adrenalin IV 250 mls
PER PROTOCOL APRIL Administration
Protocol
Per Protocol
Insulin Human Regular 100 units in 100 mls @ 0 mls/hr 10/21/24 11:30 10/21/24 11:36
Novolin R Insulin Infusion IV 100 mls
PER PROTOCOL APRIL Administration
Protocol
Per Protocol
Insulin Aspart 0 units 10/21/24 11:30
Insulin Aspart (100 Units/Ml) 3 Ml Flexpen SC 11/18/24 11:29
AC APRIL
Protocol
Meperidine HCl 12.5 mg 10/19/24 13:10
Meperidine 25 Mg/Ml Injection IV 10/22/24 13:11
Q4HPRN PRN
BSAS >/= 1
Metoprolol Succinate 25 mg 10/19/24 12:00 10/19/24 12:16
Metoprolol 25 Mg Extended Release Tablet PO 11/16/24 11:59 Not Given
DAILY APRIL
Pantoprazole Sodium 40 mg 10/20/24 08:00 10/21/24 07:52
Pantoprazole Sodium 40 Mg/10 Ml Vial IV 11/17/24 07:59 40 mg
DAILY APRIL Administration
Polyethylene Glycol 17 grams 10/19/24 10:48
Polyethylene Glycol Powder 17 Grams Packet PO 11/16/24 10:47
DAILYPRN PRN
constipation
Polyethylene Glycol 17 grams 10/20/24 08:00 10/21/24 07:56
Polyethylene Glycol Powder 17 Grams Packet TUBE 11/17/24 07:59 17 grams
DAILY APRIL Administration
Senna/Docusate Sodium 1 tablet 10/19/24 10:48
Docusate W/Senna (Nuris-Colace) Tablet PO 11/16/24 10:47
BIDPRN PRN
constipation
Sodium Chloride 0 flush 10/19/24 12:00
Sodium Chloride 0.9% (Flush) Syringe IV 11/16/24 11:59
PER PROTOCOL APRIL
Sodium Chloride 10 ml 10/20/24 08:00 10/21/24 07:52
Sodium Chloride 0.9% (Preservative Free) 10 Ml Vial IV 11/17/24 07:59 10 ml
DAILY APRIL Administration
Ticagrelor 90 mg 10/19/24 20:00 10/21/24 07:55
Ticagrelor (Brilinta) 90 Mg Tablet PO 11/16/24 19:59 90 mg
BID APRIL Administration
--- NOTE | 2024-10-21 11:50 | W.PN.INTV ---
Addendum entered and electronically signed by Angeline Martin MD 10/21/24 13:02:
Goals of care discussion:
10/21/2024, 1200, at family's request, I met with patient's spouse, mother and other family members at bedside. Patient's expressed her desire to pursue comfort measures only and proceed with terminal extubation. We went over patient's
current clinical condition which include worsening acidosis, worsening hyperkalemia, worsening shock with 4 pressors infusing at max doses. At this point patient is in multiorgan failure with worsening liver, kidney function as well as worsening
hemodynamics without any sign of neurological improvement. Patient continues to stay off sedation, does not exhibit any reflexes and is not breathing above the vent. All questions were answered and family requested grinder and honer operator automatic support and wants to
proceed with comfort focused care with the goal of peaceful passing for the patient.
-CODE STATUS changed to comfort care
Original Note:
Today's Communication / Plan
Recommendations
-Transition to comfort focused care only
Assessment
-
49-year-old male with a past medical history of hypertension, hypercholesterolemia and DM type II who presented with unresponsiveness. Per the , patient went to bed last night and prior to that he had chest discomfort. The asked if he
wanted to go to the ER then but he refused. He drank water with salt in it and then he felt better and then went to bed. Next morning at 5:30 AM, she found him unresponsive in bed. EMS called. Per the paint stockman he was in VT and V-fib. Cardiology
service was consulted. Initial EKG showed ST depressions in the inferior leads with lateral ST depressions. He was found to have a 100% occluded proximal RCA and 3 stents were placed. Patient remains intubated, was transferred to CVICU and
doughmaker services consulted for additional management/recommendations. Overnight he was moved to Medical ICU with rising pressor requirement.
Chronic conditions HALL MANAGER: Hypertension, hypercholesterolemia, DM type II
Last 24 hrs:
Significant positive volume balance, 4.3 L
Worsening shock, currently maxed out on 4 pressors with Levophed , vasopressin, Epinephrine and Moustapha-Synephrine
Hemoglobin stable at 14.4, white count mildly elevated at 20.2 and platelet down to 117K
INR up to 2.34
ABG pH 7.06, 42, 78 on 100% FiO2 with 10 of PEEP.
Assessment and plan:
Goals of care discussion:
08/23/2024, 1200, at family's request, I met with patient's spouse, mother and other family members at bedside. Patient's expressed her desire to pursue comfort measures only and proceed with terminal extubation. We went over patient's
current clinical condition which include worsening acidosis, worsening hyperkalemia, worsening shock with 4 pressors infusing at max doses. At this point patient is in multiorgan failure with worsening liver, kidney function as well as worsening
hemodynamics without any sign of neurological improvement. Patient continues to stay off sedation, does not exhibit any reflexes and is not breathing above the vent. All questions were answered and family requested grinder and honer operator automatic support and wants to
proceed with comfort focused care with the goal of peaceful passing for the patient.
-CODE STATUS changed to comfort care
Underlying medical diagnoses
#1. S/p [id number] cardiac arrest with VF/VT, inferior wall ST elevation ID. Patient is s/p emergent coronary angioplasty s/p PCI of proximal RCA occlusion with 3 overlapping stents (10/19)
#2. Shock, suspect cardiogenic along with vasoplegia in the setting of cardiac arrest
#3. Acute kidney injury, hyperkalemia with anuria
#4. Acute hypoxic respiratory failure with Acute HFrEF, EF 25-30%.
#5. Acute liver injury with coagulopathy
#6. Cerebral edema in the setting of cardiac arrest
#7. DM
Critical Care time 45 mins -- The patient is admitted for acute critical illness for the treatment of vital organ failure and/or prevention of further life-threatening conditions. Total care includes time spent in review of history, physical exam,
medications, hemodynamic/ventilator parameters, laboratory data, imaging and discussion with house staff, pharmacy, respiratory therapy, toy painter, and nursing.
Data:
CT Head 10/19/2024: No acute intracranial hemorrhage; findings suspicious for mild/early diffuse cerebral edema
ECHO 10/2024: 1. Normal left nuclear chamber size with moderate to severely reduced LV systolic function. Hypokinesis noted of the inferior, inferolateral and
inferoseptal mohan with estimated left ventricular ejection fraction of 25 to 30% by visual assessment however this is somewhat limited in the setting of ongoing sinus tachycardia.
2. Normal RV size with mildly reduced RV systolic function.
3. No obvious valvular abnormalities.
4. No pericardial effusion.
5. Technically difficult study.
Subjective Dataa
Subjective Data
Date of Service:
Date of Service: October 21, 2024
Subjective:
Patient continues to be unresponsive
Review of Systems
General: Unobtainable - Pat Unresp
Objective Data
Data Reviewed
Vital Signs / I&O / Oxygen:
Vital Signs
Temp Pulse Resp BP Pulse Ox
97.8 F 107 28 86/59 93
10/21/24 11:16 10/21/24 10:10 10/21/24 10:10 10/21/24 01:45 10/21/24 11:05
Intake and Output
10/20/24 10/21/24 10/22/24
06:59 06:59 06:59
Intake Total 6252.0 / 6431.2 4546.2 / 4814.0 1514.7 / 1514.7
Output Total 2014 1000 / 1014
Balance 4237.0 / 4396.2 3546.2 / 3800.0 1492.7 / 1492.7
SaO2 [A/C] 92
SaO2 93
Physical Exam
General: Comfortable
HEENT: Normocephalic
Cardiovascular: S1-S2 and Peripheral Edema
Respiratory: Crackles and Rhonchi
GI: Soft
Neurology: Unresponsive (No gag reflex or corneal reflex noted on exam.)
Labs/Micro/Reports
Laboratory Results
10/20/24 10/20/24 10/20/24
12:20 17:10 20:58
PT
INR
APTT
pH 7.37 7.29 L 7.25 L
pCO2 32 L 38 42
pO2 72 L 65 L 56 L*
HCO3 18.5 L 18.3 L 18.4 L
O2 Delivery Level Not Reportable
10/21/24 10/21/24
00:35 04:41
PT 25.7 H
INR 2.34
APTT 37.8 H
pH 7.28 L 7.06 L*
pCO2 37 42
pO2 60 L 78 L
HCO3 17.4 L 11.9 L*
O2 Delivery Level 100% 100%
Microbiology
10/20/24 12:54 Endotracheal Respiratory Culture - Preliminary
Usual Respiratory Lashonda
10/20/24 12:54 Endotracheal Gram Stain - Preliminary
10/19/24 12:26 Blood/Venous Blood Culture - Preliminary
No Growth in 24 hours- Final report to follow
10/19/24 14:08 Urine Legionella Urinary Antigen - Final
Negative for Legionella pneumophila Serogroup 1 antigen.
A negative result does not rule out the possiblity of
Legionella infection due to other serogroups or species of
Legionella. Clinical correlation is recommended.
10/19/24 14:08 Urine Streptococcus pneumoniae Antigen (M - Final
Negative for Streptococcus pneumoniae antigen.
A negative result does not exclude infection with
Streptococcus pneumoniae. Clinical correlation is
recommended.
--- NOTE | 2024-10-21 12:15 | PTCARENOTE ---
Pt's requesting withdrawal of care. at bedside to speak w/ . Family requested pastoral care. Plan of care discussion completed w/ MD and family. Goal is provide comfort.
[2024-10-21] MEDS: SODIUM BICARBONATE IV (12:26)
--- NOTE | 2024-10-21 12:35 | PTCARENOTE ---
Pastoral care at bedside to pray w/ family and provide emotional support.
[2024-10-21] MEDS: DILAUDID 1 MG IV (12:42)
--- NOTE | 2024-10-21 13:02 | PTCARENOTE ---
Per family request...allowing gtts to run dry. Levo @ 1256 & Moustapha @ 1302....BP currently 48/37. Will continue to provide emotional support.
--- NOTE | 2024-10-21 13:22 | W.PN.CARDCBS ---
Today's Communication / Plan
-
Recommendations:
1. Overnight events reviewed mid-morning on October 21, 2024 which is when patient was seen at bedside along with family. Hyperkalemia in the setting of acute kidney injury last night with worsening lactic acidosis, liver enzymes, maximized on 4
pressors.
2. Given his STEMI, he has been on uninterrupted dual antiplatelet therapy with daily baby aspirin and Brilinta 90 mg twice daily, high intensity statin via OGT. No BB or other cardiac meds other than amio currently as needing multiple pressors to
maintain MAPs > 65
3. Echocardiogram post VA showing LVEF 25-30%.
4. Despite trialing high-dose Lasix yesterday, his renal function continued to worsen with significant electrolyte abnormalities and ECG changes due to hyperkalemia. Given concern for anoxic brain injury postcardiac arrest in the setting of ST
elevation VA, patient is not deemed to be a dialysis candidate.
5. EEG results reviewed from yesterday.
6. Multiple ongoing discussions were had with patient's family and given worsening clinical status, initially patient was changed from full code to a limited DNR, allowing for shock in case patient were to have a shockable rhythm. Eventually
patient's family decided to move towards comfort measures only given very poor prognosis in the setting of acutely worsening clinical status since last evening as noted above.
Erin Chou MD, [facility], [facility]
Impression / Plan
-
No prior unleavened dough mixer or PCP
Impression:
Inferior ST elevation VA, due to 100% proximal RCA thrombotic occlusion, status post successful percutaneous coronary artery intervention of 100% thrombotic proximal RCA occlusion (ZEN 0 flow) post thrombectomy with 3 overlapping 2.75 x 26 mm, and
3.0 x 8 mm Medtronic Semaj drug-eluting stents and a 3.0 x 15 mm Xience jerri point drug-eluting stent, postdilated using IVUS guidance with a 3.0 x 20 mm NC balloon at 18 ayan distally and a 3.25 x 15 mm NC balloon at 20 ayan proximally with an
excellent angiographic and IVUS based result.
VT/VF arrest, out of hospital with 8 shocks/ACLS, multiple rounds of CPR and Epi
Morbid obesity
Hypertension
Hyperlipidemia
Type 2 diabetes mellitus
Obstructive sleep apnea
Family history of premature coronary artery disease
Non-smoker
Not on any chronic medications
Right heart cath: RA (m) : 23
RV (s/d,m) : 48/22, 27
PA (s/d, m) : 47/35, 40
PCWP (m) : 29
PA saturation: 66.1% on 60% FiO2 via ventilator
AO saturation: 95.5% on 60% FiO2 via ventilator
RA saturation: 63.4% on 60% FiO2 via ventilator
Cardiac Output : 4.8 L/min
Cardiac Index : 2.28 L/min/m-2
Systemic vascular resistance: 1102 dsc^(-5)
Pulmonary vascular resistance: 2.88 nair unit
AO (s/d) : 119/80
LV (s/d) : 118/60
LVEDP : 23
Recommendations:
1. Overnight events reviewed mid-morning on October 21, 2024 which is when patient was seen at bedside along with family. Hyperkalemia in the setting of acute kidney injury last night with worsening lactic acidosis, liver enzymes, maximized on 4
pressors.
2. Given his STEMI, he has been on uninterrupted dual antiplatelet therapy with daily baby aspirin and Brilinta 90 mg twice daily, high intensity statin via OGT. No BB or other cardiac meds other than amio currently as needing multiple pressors to
maintain MAPs > 65
3. Echocardiogram post VA showing LVEF 25-30%.
4. Despite trialing high-dose Lasix yesterday, his renal function continued to worsen with significant electrolyte abnormalities and ECG changes due to hyperkalemia. Given concern for anoxic brain injury postcardiac arrest in the setting of ST
elevation VA, patient is not deemed to be a dialysis candidate.
5. EEG results reviewed from yesterday.
6. Multiple ongoing discussions were had with patient's family and given worsening clinical status, initially patient was changed from full code to a limited DNR, allowing for shock in case patient were to have a shockable rhythm. Eventually
patient's family decided to move towards comfort measures only given very poor prognosis in the setting of acutely worsening clinical status since last evening as noted above.
Erin Chou MD, [facility], [facility]
Progress Note - Bottle And Glass Inspector
Subjective
Date of Service: October 21, 2024
Worsening clinical status as noted
Objective
Labs:
Labs
Hgb 14.4 g/dL (13.0-18.0) 10/21/24 08:17
Hct 42.8 % (39.0-52.0) 10/21/24 08:17
Plt Count 117 10^3/uL (130-400) L 10/21/24 08:17
PT 25.7 Sec (11.4-14.6) H 10/21/24 04:41
INR 2.34 10/21/24 04:41
APTT 37.8 Sec (23.4-35.0) H 10/21/24 04:41
Sodium 143 mmol/L (135-145) 10/21/24 08:19
Potassium 6.5 mmol/L (3.5-5.1) H* 10/21/24 08:19
BUN 37 mg/dl (9-20) H 10/21/24 08:19
Creatinine 4.6 mg/dL (0.7-1.3) H* 10/21/24 08:19
Glucose 356 mg/dl (70-99) H 10/21/24 08:19
Troponins
10/19/24 10/19/24 10/19/24
06:39 12:03 17:15
Troponin I 1.520 H* 146.000 H* D Cancelled
10/19/24 10/20/24 10/20/24
18:13 00:17 12:20
Troponin I 136.000 H* 69.400 H* D 58.000 H*
Vital Signs and I&O:
Vital Signs
Temp Pulse Resp BP Pulse Ox
98.2 F 98 28 86/59 79
10/21/24 12:00 10/21/24 12:40 10/21/24 12:40 10/21/24 01:45 10/21/24 12:30
Vital Signs
Temp Pulse Resp BP Pulse Ox
98.2 F 98 28 86/59 79
10/21/24 12:00 10/21/24 12:40 10/21/24 12:40 10/21/24 01:45 10/21/24 12:30
Intake & Output
10/19/24 10/20/24 10/21/24 10/22/24
06:59 06:59 06:59 06:59
Intake Total 6252.0 / 6431.2 4546.2 / 4814.0 1891.6 / 1891.6
Output Total 2014 1000 / 1014
Balance 4237.0 / 4396.2 3546.2 / 3800.0 1869.6 / 1869.6
Physical Exam
Physical Exam
Intubated, not on any sedation, on multiple pressors,
LIJ line, R femoral venous sheath in place, Right radial art line in place,
OGT in place.
RR, normal S1 an S2.
No neuro responses noted.
No sig edema
--- NOTE | 2024-10-21 13:40 | PTCARENOTE ---
Pt asystolic @ 6553. at bedside to pronouce pt @ 2793.
--- NOTE | 2024-10-21 13:48 | W.PN.DEATH ---
Pronouncement of
-
Called to see patient to pronounce.
No spontaneous heart tones or respirations noted.
Patient not responsive to verbal stimuli.
Patient is pronounced .
Time of : 13:26
Date of : 10/21/24
Family Notified: Yes (at bedside)
--- NOTE | 2024-10-21 13:57 | PTCARENOTE ---
LEONARDO called and paperwork completed.
--- NOTE | 2024-10-21 14:01 | W.DCSUMMARY ---
Discharge Summary
Discharge Data
Date of Admission: 10/19/24
Date of Discharge: 10/21/24
-
Pending Results: No
Hospital Course
Principal Diagnosis:
Cardiogenic shock with myocardial infarction
Ischemic cardiomyopathy
Multiorgan failure with acute kidney injury and shock liver
Anoxic brain injury
Chronic Diagnoses:�
Hypertension
Hyperlipidemia
Diabetes
Not on medication
Consultations:�
Child And Family Services Specialist
Fire Code Inspector
Branch Services Manager
Lockstitch Tunnel Elastic Operator
Diabetes nurse practitioner
Procedures:�
Cardiac catheterization on admission 10/19 showed 100% proximal RCA occlusion, s/p 3 stents placement.
Clinical course:�
This is a 49-year-old male with past medical history as stated above, who is not on medication due to noncompliance, presented with cardiac arrest.
He was found unresponsive by his at around 5:30 AM in bed. Last seen normal the night prior at around 11 PM before going to bed.
History obtained from . Apparently the patient had been complaining of chest pain the night before.
When EMS arrived, he was noted to be in ventricular arrhythmia with V. tach and V-fib.
He was sent straight to the Dam Attendant upon arrival to the emergency room, and during cardiac catheterization he was noted to have 100% RCA occlusion, and 3 stents were placed.
He had been started with targeted temperature management to keep at 35 to 36 �C per pediatric orthodontist.
For his cardiogenic shock, he had been on 4 pressors maxed out prior to withdrawal of care by his family.
Of note, he also exhibited likely anoxic brain injury on arrival, and developed multiorgan failure with RUBÉN/azotemia and shock liver.
Following extensive family discussion with regard to goals of care, his family agreed to proceed with withdrawal of care.
The patient peacefully on 10/21/2024, and time of was at 1:26 PM.
His family was at bedside at pronouncement.
His did request for autopsy, and the medical tassel clipper was contacted. According to the medical tassel clipper, the patient does not fit the criteria for autopsy, hence if the family would like to pursue autopsy, they would need to seek private pathology
service for this.
Discharge Plan
-
Referrals:
UNKNOWN - PT DOES,NOT KNOW [Family Provider] -
Prescriptions:
No Action
No Current Medications
0
Discharge Date and Time
Print Language: SERBIAN
--- NOTE | 2024-10-21 15:00 | PTCARENOTE ---
Post mortem care done. All monitoring equipment, IV sites/central lines, and griffith removed. No belongings to send to [facility].
== END 2024-10-21 13:26 | disposition expired | DRG 321 ==
LOC: ICU 10:59
PROVIDERS: Clinical Nurse Specialist Acute Care; Internal Medicine; Nurse Practitioner; Nurse Practitioner Family; Nurse Practitioner Primary Care; ADMITTING PHYSICIAN Internal Medicine; CONSULT PHYSICIAN Internal Medicine Critical Care Medicine; CONSULT PHYSICIAN Internal Medicine Gastroenterology; CONSULT PHYSICIAN Internal Medicine Interventional Cardiology; CONSULT PHYSICIAN Internal Medicine Nephrology; CONSULT PHYSICIAN Psychiatry & Neurology Clinical Neurophysiology; EMERGENCY PHYSICIAN Emergency Medicine
PROC: 027036Z Dilation of Coronary Artery, One Artery with Three Drug-eluting Intraluminal Devices, Percutaneous Approach (ICD-10-PCS; 2024-10-19)
PROC: B2111ZZ Fluoroscopy of Multiple Coronary Arteries using Low Osmolar Contrast (ICD-10-PCS; 2024-10-19)
PROC: B240ZZ3 Ultrasonography of Single Coronary Artery, Intravascular (ICD-10-PCS; 2024-10-19)
PROC: 03HY32Z Insertion of Monitoring Device into Upper Artery, Percutaneous Approach (ICD-10-PCS; 2024-10-19)
PROC: 02C03ZZ Extirpation of Matter from Coronary Artery, One Artery, Percutaneous Approach (ICD-10-PCS; 2024-10-19)
PROC: 5A1945Z Respiratory Ventilation, 24-96 Consecutive Hours (ICD-10-PCS; 2024-10-19)
PROC: 4A023N8 Measurement of Cardiac Sampling and Pressure, Bilateral, Percutaneous Approach (ICD-10-PCS; 2024-10-19)
PROC: B548ZZA Ultrasonography of Superior Vena Cava, Guidance (ICD-10-PCS; 2024-10-20)
PROC: 02H633Z Insertion of Infusion Device into Right Atrium, Percutaneous Approach (ICD-10-PCS; 2024-10-20)
DX: I21.19 ST elevation (STEMI) myocardial infarction involving other coronary artery of inferior wall (principal); G93.6 Cerebral edema; I50.21 Acute systolic (congestive) heart failure; K72.00 Acute and subacute hepatic failure without coma; J96.01 Acute respiratory failure with hypoxia; N17.9 Acute kidney failure, unspecified; G93.1 Anoxic brain damage, not elsewhere classified; R65.10 Systemic inflammatory response syndrome (SIRS) of non-infectious origin without acute organ dysfunction; E87.4 Mixed disorder of acid-base balance; Z99.11 Dependence on respirator [ventilator] status; I47.20 Ventricular tachycardia, unspecified; R57.0 Cardiogenic shock; I25.5 Ischemic cardiomyopathy; I11.0 Hypertensive heart disease with heart failure; E11.65 Type 2 diabetes mellitus with hyperglycemia; E66.01 Morbid (severe) obesity due to excess calories; Z68.37 Body mass index [BMI] 37.0-37.9, adult; E78.00 Pure hypercholesterolemia, unspecified; G47.33 Obstructive sleep apnea (adult) (pediatric); I46.2 Cardiac arrest due to underlying cardiac condition; Z90.49 Acquired absence of other specified parts of digestive tract; Z66 Do not resuscitate; I49.01 Ventricular fibrillation; I25.10 Atherosclerotic heart disease of native coronary artery without angina pectoris; D69.6 Thrombocytopenia, unspecified; R32 Unspecified urinary incontinence; E87.6 Hypokalemia; E87.5 Hyperkalemia
CPT/HCPCS: 70450; 71045; 76937; 80048; 80053; 80061; 80306; 82248; 82330; 82550; 82553; 82805; 82947; 82962; 83036; 83605; 83735; 83880; 84100; 84134; 84478; 84484; 85025; 85347; 85610; 85730; 86705; 86706; 86709; 86803; 87040; 87070; 87205; 87340; 87449; 87899; 92978; 93005; 93306; 93460; 94002; 94003; 94640; 95816; 96374; 99152; 99153; 99291; C1725; C1753; C1874; C1894; C9606; J1327; P9047; Q9967